=== PATIENT | female | born 1980 | race Caucasian/White ===

== ENCOUNTER → 2016-11-20 | Outpatient (REF) | payer OTHER ==
[~2016-11-20] MED LIST: /ADVA50050 INH; AMOX250S53; BACL10TA2 PO; CLOTCRE3 TOP; COUM1TAB17 PO; DICY10CA13 PO; DOCU10CA PO; DRIS50002 PO; HYDR-4274 PO; HYDROCHLOROQUIN; IBUP200C PO; IRON27TA PO; KLOR1TAB65 PO; LASI40TA PO; LORTAB; NEUR300C PO; NUVA RING; OMEP10CASR PO; OXYC-517 PO; OXYC15TA76 PO; PERCOCET PO; PLAQUENIL PO; ROBA750T4 PO; SOMA350T PO; TIZA4CAP3 PO; XANA0.5T PO; XOPEAER INH; vybrid PO
== END ==
LOC: M LAB REF 17:50
PROVIDERS: ATTEND Physician Assistant Medical
DX: N39.0 Urinary tract infection, site not specified (principal)

== ENCOUNTER → 2016-12-25 | Outpatient (CLI) | payer OTHER ==
--- NOTE | 2016-12-25 23:18 | ECWPNPC ---
PATIENT NAME: GISELL FRIEDMAN : 1980 GENDER: FEMALE VISIT DATE: 12/25/2016 DISCHARGE DATE: 12/25/16 1601 VISIT LOCKED DATE TIME: PHYSICIAN: CRISTY ATKINSON RESOURCE: CRISTY ATKINSON REASON FOR APPOINTMENT 1. MEDS HISTORY OF PRESENT ILLNESS HISTORY OF PRESENT ILLNESS: HERE FOR F/U AND MANAGEMENT OF CHRONIC PAIN WITH HX OF LUPUS,FIBROMYALGIA AND PTSD.CURRENTLY TAKING OXYCODONE 15NG ONE WHOLE TAB IN AM,1/2TAB AT 12NOON,ONE LATE AFTERNOONAND 1/2 TAB AT HS.STATES SHE IS HAVING WITHDRAWAL SYMPTOMS.CANT TAKE CLONIDINE IT CAUSES SEVERE FATIGUE.PATIENT HAS ALOT OF STRESS AND LIMITED SUPPORT.DISCUSSED REFFERAL TO BEHAVIORAL HEALTH.PATIENT IS RECEPTIVE.RATING PAIN VAS 6/10.DESCRIBES PAIN BURNING,ACHING AND STABBING. FALL RISK SCREENING: SCREENING :NO FALLS IN THE PAST YEAR CURRENT MEDICATIONS TAKING XANAX 1 MG TABLET 1 TABLET ORALLY TWICE A DAY NEEDED TAKING KLOR-CON 10 1 TABLET ORALLY ONCE DAILY TAKING FUROSEMIDE 20 MG TABLET 1 TABLET ORALLY ONCE A DAY TAKING OMEPRAZOLE 20 MG CAPSULE DELAYED RELEASE 1CAPSULES ORALLY TWICE A DAY TAKING DICYCLOMINE HCL 10 MG CAPSULE 1 CAPSULE ORALLY THREE TIMES A DAY TAKING COUMADIN 5 MG TABLET ORALLY DIRECTED TAKING CARAFATE 1 GM TABLET 1 TABLET ON AN EMPTY STOMACH ORALLY 3 TIMES A DAY TAKING IRON 65 MG TABLET 1 TABLET ORALLY BID TAKING COLACE 100 MG CAPSULE 1 CAPSULE NEEDED ORALLY ONCE A DAY TAKING TIZANIDINE HCL 4 MG TABLET 1 TAB ORALLY 1/2 TAB IN AM AND 2 TABS AT BEDTIME TAKING GABAPENTIN 300 MG CAPSULE 2 TABLETS ORALLY THREE TIMES A DAY AND 1 EXTRA TABLET AT BEDTIME IF NEEDED TAKING OXYCODONE HCL 15 MG TABLET 1 ORALLY Q8H PRN MDD3 NOT-TAKING ZOFRAN 4 MG TABLET 2 TABLETS ORALLY ONCE A DAY NOT-TAKING CLONIDINE HCL 0.1 MG TABLET 1 TABLET ORALLY Q8H PRN NOT-TAKING HYDROXYCHLOROQUINE SULFATE 200 MG TABLET 1 TABLET WITH FOOD OR MILK ORALLY TWICE A DAY NOT-TAKING HYDROXYZINE HCL 1 TABLET ORALLY AT BEDTIME MEDICATION LIST REVIEWED AND RECONCILED WITH THE PATIENT PAST MEDICAL HISTORY LUPUS FIBROMYALGIA PULMONARY EMBOLI AND BLOOD CLOT IN LEG KIARIMALFORMATION BACK PROBLEMS SEVERE DEPRESSION PTSD SEVERE ANXIETY ASTHMA STOMACH ULCER IBS ALLERGIES ATROPINE EYE DROPS: IRRITATION: ALLERGY CODEINE PHOSPHATE: NAUSEA/VOMITING: ALLERGY MORPHINE SULFATE: HIVES: ALLERGY SOCIAL HISTORY GENERAL: TOBACCO USE ARE YOU A:CURRENT SMOKER HOW MANY CIGARETTES A DAY DO YOU SMOKE?6-10 HOW SOON AFTER YOU WAKE UP DO YOU SMOKE YOUR FIRST CIGARETTE?6-30 MIN HOW OFTEN DO YOU SMOKE CIGARETTES?EVERY DAY PATIENT COUNSELED ON THE DANGERS OF TOBACCO USE AND URGED TO QUIT: COUNCELLED ON THE IMPORTANCE OF QUITTING ARE YOU INTERESTED IN QUITTING?NOT READY TO QUIT LEARNING BARRIERS / SPECIAL NEEDS ORIENTED TO PLAN OF CARE: PATIENT, PAIN MANAGEMENT PATIENT, ORIENTED TO PLAN OF CARE: PATIENT, PAIN MANAGEMENT PATIENT. NEW PATIENT PAIN DIARY TODAY'S VISITNOTES FROM 0-10, WHAT LEVEL IS YOUR PAIN TODAY?0 PAIN CLINIC PFS, CLERGY, PUBLIC HEALTH REFERRALS PFS REFERRAL NEEDED?NO CLERGY REFERRAL NEEDED?NO PUBLIC HEALTH REFERRAL NEEDED?NO WAS THE PROVIDER NOTIFIED OF ANY PERTINENT INFO?NO PFS REFERRAL NEEDED?NO CLERGY REFERRAL NEEDED?NO PUBLIC HEALTH REFERRAL NEEDED?NO WAS THE PROVIDER NOTIFIED OF ANY PERTINENT INFO?NO REVIEW OF SYSTEMS CONSTITUTIONAL: ANY CHANGE IN YOUR MEDICAL CONDITION? NO . CHILLS NO . FEVER NO . INFECTION: DO YOU HAVE NEW INFECTIONS? NO . DO YOU HAVE HISTORY OF MRSA? YES LEFT EAR, VAGINA, SIDE OF MOUTH . MUSCULOSKELETAL: ANY NEW PATTERNS OF PAIN OR NUMBNESS? NO . GASTROENTEROLOGY: ANY NEW CHANGE IN BOWEL CONTROL? NO . GENITOURINARY: ANY NEW CHANGE IN BLADDER CONTROL? NO . IS THERE A CHANCE YOU COULD BE ? NO . HEMATOLOGY/LYMPH: DO YOU TAKE ANY BLOOD THINNERS? (FOR EXAMPLE- COUMADIN, PLAVIX, AGGRENOX, PLATEL, PRADAXA, OR XARELTO) YES COUMADIN . WHEN WAS YOUR LAST DOSE? DATE: TIME: 12/24/16 2200 . NEUROLOGY: HAVE YOU FALLEN IN THE PAST 6 MONTHS? YES FALLS ALL THE TIME . ANY NEW EXTREMITY NUMBNESS OR WEAKNESS? NO . CARDIOLOGY: DO YOU HAVE A PACEMAKER OR DEFIBRILLATOR? NO . RESPIRATORY: HAVE YOU BEEN SICK IN THE PAST WEEK? YES . FEVER NO, DENIES . FLU LIKE SYMPTOMS? NO . COUGH PRODUCTIVE, CLEAR SPUTUM . INTEGUMENTARY: DO YOU HAVE ANY RASHES OR OPEN SORES? NO . ALLERGIC/IMMUNO: ARE YOU ALLERGIC TO SHELLFISH OR IV DYE? NO . ANY NEW ALLERGIES? NO . PSYCHIATRIC: DO YOU HAVE THOUGHTS OF HURTING YOURSELF OR SOMEONE ELSE? NO . ARE YOU ABUSED, NEGLECTED, OR IN AN UNSAFE ENVIRONMENT? NO . ENDOCRINOLOGY: ARE YOU DIABETIC? NO . OTHER: DO YOU NEED ANY PRESCRIPTIONS? YES OXYCODONE . IF YES, PLEASE LIST: ____ . ANY NEW PROBLEMS WITH YOUR MEDICATIONS? NO . WHEN DID YOU LAST EAT? ____ . WHEN DID YOU LAST DRINK? ____ . WHAT DID YOU LAST DRINK? ____ . NAME OF PERSON DRIVING YOU HOME? ____ . DO YOU HAVE ANY OTHER QUESTIONS OR CONCERNS NO . REVIEWED BY: PROVIDER: CRISTY MEANS . VITAL SIGNS WT 186 LBS, HT 65.5 IN, BMI 30.48 INDEX, BP 126/78 MM HG, HR 80 /MIN, RR 18 /MIN, TEMP 98.0 F, OXYGEN SAT % 99%, NA INITIALS SC 14:44, REVIEWED BY: AD. EXAMINATION GENERAL EXAMINATION: LUNGS:LUNG SOUNDS ARE CLEAR. HEART:HEART RATE REGULAR. MUSCULOSKELETAL:*, MUSCLE STRENGTH TESTING 5/5 BILATERAL.POSITIVE FOR MULTIPLE AREAS OF TENDER SPOTS INDICATIVE OF FIBROMYALGIA.. ASSESSMENTS CHRONIC GENERALIZED PAIN DISORDER - R52 (PRIMARY) CHRONIC PRESCRIPTION OPIATE USE - Z79.891 TREATMENT CHRONIC GENERALIZED PAIN DISORDER REFILL TIZANIDINE HCL TABLET, 4 MG, 1 TAB, ORALLY, 1/2 TAB IN AM AND 2 TABS AT BEDTIME, 30 DAY(S), 75, REFILLS 2 CONTINUE GABAPENTIN CAPSULE, 300 MG, 2 TABLETS, ORALLY, THREE TIMES A DAY AND 1 EXTRA TABLET AT BEDTIME IF NEEDED REFILL OXYCODONE HCL TABLET, 15 MG, 1, ORALLY, Q8H PRN MDD3, 30 DAY(S), 90, REFILLS 0 START CLONIDINE HCL PATCH WEEKLY, 0.1 MG/24HR, 1 PATCH TO SKIN, TRANSDERMAL, ONE PATCH WEEKLY, 30 DAY(S), 4, REFILLS 1 REFERRAL TO:[facility] REASON:ANXIETY/PTSD PREVENTIVE MEDICINE PAIN CLINIC TEACHING: MEDITATION PRINTED INFORMATION ON CLONIDINE PATCH GIVEN TO AND EXPLAINED TO PATIENT. . PROCEDURE CODES FA211 ESTABILISHED [facility]IENT [facility] CHARGE DISPOSITION & COMMUNICATION FOLLOW UP 6 WEEKS ELECTRONICALLY SIGNED BY MIGUELANGEL MONAHAN ON 12/25/2016 AT 04:20 PM EST DISCLAIMER : THIS IS A VISIT SUMMARY EXTRACTED FROM THE [employer] CHART. IT IS NOT A COPY OF THE [employer] PROGRESS NOTE. MTDD
== END ==
LOC: M PAIN 14:40
PROVIDERS: ATTEND Nurse Practitioner Family
DX: Z09 Encounter for follow-up examination after completed treatment for conditions other than malignant neoplasm (principal); G89.29 Other chronic pain; M32.9 Systemic lupus erythematosus, unspecified; M79.7 Fibromyalgia; J45.909 Unspecified asthma, uncomplicated; K58.9 Irritable bowel syndrome, unspecified; F17.200 Nicotine dependence, unspecified, uncomplicated; F32.9 Major depressive disorder, single episode, unspecified; F43.10 Post-traumatic stress disorder, unspecified; F41.9 Anxiety disorder, unspecified; Z88.5 Allergy status to narcotic agent; Z88.8 Allergy status to other drugs, medicaments and biological substances; Z79.01 Long term (current) use of anticoagulants; Z79.891 Long term (current) use of opiate analgesic; Z79.899 Other long term (current) drug therapy; Z86.14 Personal history of Methicillin resistant Staphylococcus aureus infection

== ENCOUNTER → 2016-12-25 | Outpatient (REF) | payer OTHER ==
[2016-12-25 16:13] LABS: MEAN CORPUSCULAR HEMOGLOBIN 29.1 pg (27.0-33.0); MEAN CORPUSCULAR HGB CONC 32.9 g/dl (32.0-36.5); MEAN CORPUSCULAR VOLUME 88.4 fl (80.0-96.0); WHITE BLOOD COUNT 5.9 K/mm3 (4.0-10.0)
[2016-12-25 16:15] LABS: INR 3.17
[2016-12-25 16:25] LABS: ALBUMIN 3.8 GM/DL (3.2-5.2); ALBUMIN/GLOBULIN RATIO 1.58 (1.00-1.93); ALKALINE PHOSPHATASE 86 U/L (45-117); ALT/SGPT 23 U/L (12-78); ANION GAP 10 MEQ/L (8-16); AST/SGOT 22 U/L (15-37); BILIRUBIN,TOTAL 0.4 MG/DL (0.2-1.0); BLOOD UREA NITROGEN 6 MG/DL (7-18); CARBON DIOXIDE LEVEL 24 MEQ/L (21-32); CHLORIDE LEVEL 110 MEQ/L (98-107); CHOLESTEROL LEVEL 185 MG/DL (<200); CREATININE FOR GFR 0.64 MG/DL (0.55-1.02); GLOMERULAR FILTRATION RATE > 60.0 (>60); GLUCOSE, FASTING 75 MG/DL (70-105); PERCENT SATURATION 45.7 % (13.2-37.4); POTASSIUM SERUM 3.6 MEQ/L (3.5-5.1); SODIUM LEVEL 144 MEQ/L (136-145); THYROXINE (T4) 6.8 UG/DL (4.5-12.0); TOTAL IRON BINDING CAPACITY 199 UG/DL (250-450); TOTAL PROTEIN 6.2 GM/DL (6.4-8.2); TRIGLYCERIDES LEVEL 130 MG/DL (<150)
== END ==
LOC: M LABDRAW1 15:45
PROVIDERS: ATTEND Family Medicine
DX: D64.9 Anemia, unspecified (principal)

== ENCOUNTER → 2017-04-30 | Outpatient (REF) | payer OTHER ==
[~2017-04-30] MED LIST changes: -HYDR-4274 PO; +HYDR50TA70 PO; -IBUP200C PO; +IBUP200C10 PO; -IRON27TA PO; +IRON27TA2 PO
== END ==
LOC: M LAB REF 16:31
PROVIDERS: ATTEND Physician Assistant
DX: N39.0 Urinary tract infection, site not specified (principal)

== ENCOUNTER → 2017-05-04 | Outpatient (CLI) | payer OTHER ==
--- NOTE | 2017-05-15 00:26 | ECWPNPC ---
PATIENT NAME: GISELL FRIEDMNA : 1980 GENDER: FEMALE VISIT DATE: 05/04/2017 DISCHARGE DATE: 05/04/17 1432 VISIT LOCKED DATE TIME: PHYSICIAN: CRISTY ATKINSON RESOURCE: CRISTY ATKINSON REASON FOR APPOINTMENT 1. BACK, CHRONIC PAIN HISTORY OF PRESENT ILLNESS HISTORY OF PRESENT ILLNESS: HERE FOR F/U AND MANAGEMENT OF CHRONIC PAIN WITH HX OF LUPUS,FIBROMYALGIA AND PTSD.CURRENTLY TAKING OXYCODONE 15NG ONE WHOLE TAB IN AM,1/2TAB AT 12NOON,ONE LATE AFTERNOONAND 1/2 TAB AT HS.STATES SHE IS HAVING WITHDRAWAL SYMPTOMS.CANT TAKE CLONIDINE IT CAUSES SEVERE FATIGUE.PATIENT HAS ALOT OF STRESS AND LIMITED SUPPORT.DISCUSSED REFFERAL TO BEHAVIORAL HEALTH.PATIENT IS RECEPTIVE.RATING PAIN VAS 6/10.DESCRIBES PAIN BURNING,ACHING AND STABBING. PAIN THE PATIENT DESCRIBES THE PAIN... THE PATIENT DESCRIBES THE PAIN... FALL RISK SCREENING: SCREENING :NO FALLS IN THE PAST YEAR CURRENT MEDICATIONS TAKING XANAX 1 MG TABLET 1 TABLET ORALLY TWICE A DAY NEEDED TAKING KLOR-CON 10 1 TABLET ORALLY ONCE DAILY TAKING FUROSEMIDE 20 MG TABLET 1 TABLET ORALLY ONCE A DAY TAKING OMEPRAZOLE 20 MG CAPSULE DELAYED RELEASE 1CAPSULES ORALLY TWICE A DAY TAKING DICYCLOMINE HCL 10 MG CAPSULE 1 CAPSULE ORALLY THREE TIMES A DAY TAKING COUMADIN 5 MG TABLET ORALLY DIRECTED TAKING CARAFATE 1 GM TABLET 1 TABLET ON AN EMPTY STOMACH ORALLY 3 TIMES A DAY TAKING IRON 65 MG TABLET 1 TABLET ORALLY BID TAKING COLACE 100 MG CAPSULE 1 CAPSULE NEEDED ORALLY ONCE A DAY TAKING GABAPENTIN 300 MG CAPSULE 2 TABLETS ORALLY THREE TIMES A DAY AND 1 EXTRA TABLET AT BEDTIME IF NEEDED TAKING CLONIDINE HCL 0.1 MG/24HR PATCH WEEKLY 1 PATCH TO SKIN TRANSDERMAL ONE PATCH WEEKLY TAKING TIZANIDINE HCL 4 MG TABLET 1 TAB ORALLY 1/2 TAB IN AM AND 2 TABS AT BEDTIME TAKING OXYCODONE HCL 15 MG TABLET 1 ORALLY Q8H PRN MDD3 NOT-TAKING ZOFRAN 4 MG TABLET 2 TABLETS ORALLY ONCE A DAY NOT-TAKING CLONIDINE HCL 0.1 MG TABLET 1 TABLET ORALLY Q8H PRN NOT-TAKING HYDROXYCHLOROQUINE SULFATE 200 MG TABLET 1 TABLET WITH FOOD OR MILK ORALLY TWICE A DAY NOT-TAKING HYDROXYZINE HCL 1 TABLET ORALLY AT BEDTIME MEDICATION LIST REVIEWED AND RECONCILED WITH THE PATIENT PAST MEDICAL HISTORY LUPUS FIBROMYALGIA PULMONARY EMBOLI AND BLOOD CLOT IN LEG KIARIMALFORMATION BACK PROBLEMS SEVERE DEPRESSION PTSD SEVERE ANXIETY ASTHMA STOMACH ULCER IBS ALLERGIES ATROPINE EYE DROPS: IRRITATION: ALLERGY CODEINE PHOSPHATE: NAUSEA/VOMITING: ALLERGY MORPHINE SULFATE: HIVES: ALLERGY SOCIAL HISTORY GENERAL: TOBACCO USE ARE YOU A:CURRENT SMOKER HOW MANY CIGARETTES A DAY DO YOU SMOKE?6-10 HOW SOON AFTER YOU WAKE UP DO YOU SMOKE YOUR FIRST CIGARETTE?6-30 MIN HOW OFTEN DO YOU SMOKE CIGARETTES?EVERY DAY PATIENT COUNSELED ON THE DANGERS OF TOBACCO USE AND URGED TO QUIT:05/04/2017 COUNCELLED ON THE IMPORTANCE OF QUITTING ARE YOU INTERESTED IN QUITTING?NOT READY TO QUIT COUNSELED THE PATIENT ON SMOKING EFFECTS, EDUCATION [id number]/07/2017 COUNCELLED SMOKING CESSATION INFORMATION GIVEN05/04/2017 LEARNING BARRIERS / SPECIAL NEEDS ORIENTED TO PLAN OF CARE: PATIENT, PAIN MANAGEMENT PATIENT, ORIENTED TO PLAN OF CARE: PATIENT, PAIN MANAGEMENT PATIENT. NEW PATIENT PAIN DIARY TODAY'S VISITNOTES FROM 0-10, WHAT LEVEL IS YOUR PAIN TODAY?0 PAIN CLINIC PFS, CLERGY, PUBLIC HEALTH REFERRALS PFS REFERRAL NEEDED?NO CLERGY REFERRAL NEEDED?NO PUBLIC HEALTH REFERRAL NEEDED?NO WAS THE PROVIDER NOTIFIED OF ANY PERTINENT INFO?NO PFS REFERRAL NEEDED?NO CLERGY REFERRAL NEEDED?NO PUBLIC HEALTH REFERRAL NEEDED?NO WAS THE PROVIDER NOTIFIED OF ANY PERTINENT INFO?NO REVIEW OF SYSTEMS REVIEWED BY: PROVIDER: CRISTY MEANS . CONSTITUTIONAL: ANY CHANGE IN YOUR MEDICAL CONDITION? NO . CHILLS NO . FEVER NO . INFECTION: DO YOU HAVE NEW INFECTIONS? NO . DO YOU HAVE HISTORY OF MRSA? NO . MUSCULOSKELETAL: ANY NEW PATTERNS OF PAIN OR NUMBNESS? NO . GASTROENTEROLOGY: ANY NEW CHANGE IN BOWEL CONTROL? NO . GENITOURINARY: ANY NEW CHANGE IN BLADDER CONTROL? NO . IS THERE A CHANCE YOU COULD BE ? NO . HEMATOLOGY/LYMPH: DO YOU TAKE ANY BLOOD THINNERS? (FOR EXAMPLE- COUMADIN, PLAVIX, AGGRENOX, PLATEL, PRADAXA, OR XARELTO) NO . WHEN WAS YOUR LAST DOSE? DATE: TIME: . NEUROLOGY: HAVE YOU FALLEN IN THE PAST 6 MONTHS? NO . ANY NEW EXTREMITY NUMBNESS OR WEAKNESS? NO . CARDIOLOGY: DO YOU HAVE A PACEMAKER OR DEFIBRILLATOR? NO . RESPIRATORY: HAVE YOU BEEN SICK IN THE PAST WEEK? NO . FEVER NO . FLU LIKE SYMPTOMS? NO . COUGH NO . INTEGUMENTARY: DO YOU HAVE ANY RASHES OR OPEN SORES? NO . ALLERGIC/IMMUNO: ARE YOU ALLERGIC TO SHELLFISH OR IV DYE? NO . ANY NEW ALLERGIES? NO . PSYCHIATRIC: DO YOU HAVE THOUGHTS OF HURTING YOURSELF OR SOMEONE ELSE? NO . ARE YOU ABUSED, NEGLECTED, OR IN AN UNSAFE ENVIRONMENT? NO . ENDOCRINOLOGY: ARE YOU DIABETIC? NO . OTHER: DO YOU NEED ANY PRESCRIPTIONS? NO . IF YES, PLEASE LIST: ____ . ANY NEW PROBLEMS WITH YOUR MEDICATIONS? NO . WHEN DID YOU LAST EAT? ____ . WHEN DID YOU LAST DRINK? ____ . WHAT DID YOU LAST DRINK? ____ . NAME OF PERSON DRIVING YOU HOME? ____ . DO YOU HAVE ANY OTHER QUESTIONS OR CONCERNS NO . VITAL SIGNS WT 180 LBS, HT 65.5 IN, BMI 29.49 INDEX, BP 118/76 MM HG, HR 70 /MIN, RR 18 /MIN, TEMP 98 F,6 F, OXYGEN SAT % 96, SAFE IN ENV? (Y/N) YES, REVIEWED BY: KG. EXAMINATION GENERAL EXAMINATION: LUNGS:LUNG SOUNDS ARE CLEAR. HEART:HEART RATE REGULAR. MUSCULOSKELETAL:*, MUSCLE STRENGTH TESTING 5/5 BILATERAL.POSITIVE FOR MULTIPLE AREAS OF TENDER SPOTS INDICATIVE OF FIBROMYALGIA.. ASSESSMENTS CHRONIC GENERALIZED PAIN DISORDER - R52 CHRONIC PRESCRIPTION OPIATE USE - Z79.891 TREATMENT CHRONIC GENERALIZED PAIN DISORDER REFILL TIZANIDINE HCL TABLET, 4 MG, 1 TAB, ORALLY, 1/2 TAB IN AM AND 2 TABS AT BEDTIME, 30 DAY(S), 75, REFILLS 0 REFILL OXYCODONE HCL TABLET, 15 MG, 1, ORALLY, Q8H PRN MDD3, 30 DAY(S), 90, REFILLS 0 NOTES: ISTOP REGISTRY REVIEWED AND DEMNOSTRATES COMPLLIANCE. BRINGS IN MEDICATIONS WHICH IS APPROPRIATE FOR WHAT WAS DISPENSED. RECENT URINE TOXICOLOGY REVIEWED. NO UNAUTHORIZED MEDICATIONS. NO ILLICIT SUBSTANCES AND PRESCRIBED MEDICATIONS WERE PRESENT. , RISKS AND BENEFITS OF NARCOTIC/OPIOD MEDICATIONS WERE REVIEWED WITH PATIENT - THIS INCLUDES BUT IS NOT LIMITED TO RISK OF DEPENDANCE/DEVELOPMENT OF ADDICTION, MOOD DISTURBANCE AND DEPRESSION, OSTEOPOROSIS, HORMONAL AND LABIDAL CHANGES, RESPIRATORY DEPRESSION AND . PATIENT IS ADVISED NOT TO DRIVE WHILE ON THESE MEDICATIONS. OTHERS NOTES: L4/5 INTRALAMINAL LESI. PROCEDURE CODES FA211 ESTABILISHED PATIENT [facility] CHARGE G8730 PAIN ASSESS POS TOOL F/U PLAN DOC G8427 DOC MEDS VERIFIED W/PT OR RE DISPOSITION & COMMUNICATION FOLLOW UP 1 MONTH CRISTY (REASON: L4/5 INTRALAMINAL LESI) ELECTRONICALLY SIGNED BY MIGUELANGEL MONAHAN ON 05/14/2017 AT 04:51 PM EDT DISCLAIMER : THIS IS A VISIT SUMMARY EXTRACTED FROM THE [employer] CHART. IT IS NOT A COPY OF THE [employer] PROGRESS NOTE. PABLITO
== END ==
LOC: M PAIN 13:20
PROVIDERS: ATTEND Nurse Practitioner Family
DX: G89.29 Other chronic pain (principal); M32.9 Systemic lupus erythematosus, unspecified; F43.10 Post-traumatic stress disorder, unspecified; M79.7 Fibromyalgia; F32.9 Major depressive disorder, single episode, unspecified; F41.9 Anxiety disorder, unspecified; J45.909 Unspecified asthma, uncomplicated; F17.210 Nicotine dependence, cigarettes, uncomplicated; Z88.5 Allergy status to narcotic agent; Z88.8 Allergy status to other drugs, medicaments and biological substances; Z79.01 Long term (current) use of anticoagulants; Z79.891 Long term (current) use of opiate analgesic; Z79.899 Other long term (current) drug therapy

== ENCOUNTER → 2017-05-30 | Outpatient (REF) | payer OTHER ==
[2017-05-30 16:05] LABS: MEAN CORPUSCULAR HEMOGLOBIN 31.1 pg (27.0-33.0); MEAN CORPUSCULAR HGB CONC 33.8 g/dl (32.0-36.5); MEAN CORPUSCULAR VOLUME 92.1 fl (80.0-96.0); RED CELL DISTRIBUTION WIDTH 15.2 % (11.5-14.5); WHITE BLOOD COUNT 6.3 K/mm3 (4.0-10.0)
[2017-05-30 16:28] LABS: ALBUMIN 3.7 GM/DL (3.2-5.2); ALBUMIN/GLOBULIN RATIO 1.28 (1.00-1.93); ALKALINE PHOSPHATASE 80 U/L (45-117); ALT/SGPT 24 U/L (12-78); ANION GAP 7 MEQ/L (8-16); AST/SGOT 20 U/L (15-37); BILIRUBIN,TOTAL 0.2 MG/DL (0.2-1.0); BLOOD UREA NITROGEN 5 MG/DL (7-18); CALCIUM LEVEL 8.5 MG/DL (8.5-10.1); CARBON DIOXIDE LEVEL 29 MEQ/L (21-32); CHLORIDE LEVEL 103 MEQ/L (98-107); CHOLESTEROL LEVEL 233 MG/DL (<200); GLOMERULAR FILTRATION RATE > 60.0 (>60); GLUCOSE, FASTING 75 MG/DL (70-105); MAGNESIUM LEVEL 1.8 MG/DL (1.8-2.4); POTASSIUM SERUM 3.7 MEQ/L (3.5-5.1); SODIUM LEVEL 139 MEQ/L (136-145); TOTAL PROTEIN 6.6 GM/DL (6.4-8.2); TRIGLYCERIDES LEVEL 143 MG/DL (<150)
== END ==
LOC: M LABDRAW1 15:50
PROVIDERS: ATTEND Family Medicine
DX: D64.9 Anemia, unspecified (principal); R53.83 Other fatigue

== ENCOUNTER → 2017-06-05 | Outpatient (REF) | payer OTHER ==
[2017-06-05 16:49] LABS: INR 2.99
== END ==
LOC: M LABDRAW1 15:39
PROVIDERS: ATTEND Family Medicine
DX: Z51.81 Encounter for therapeutic drug level monitoring (principal); Z79.01 Long term (current) use of anticoagulants; Z86.711 Personal history of pulmonary embolism

== ENCOUNTER → 2017-08-08 | Outpatient (CLI) | payer OTHER ==
--- NOTE | 2017-08-22 01:13 | ECWPNPC ---
PATIENT NAME: GISELL FRIEDMAN : 1980 GENDER: FEMALE VISIT DATE: 08/08/2017 DISCHARGE DATE: 08/08/17 1652 VISIT LOCKED DATE TIME: PHYSICIAN: CRISTY ATKINSON RESOURCE: CRISTY ATKINSON REASON FOR APPOINTMENT 1. BACK AND CHRONIC PAIN HISTORY OF PRESENT ILLNESS HISTORY OF PRESENT ILLNESS: HERE FOR F/U AND MANAGEMENT OF CHRONIC PAIN WITH HX OF LUPUS,FIBROMYALGIA AND PTSD.CURRENTLY TAKING OXYCODONE 15NG ONE WHOLE TAB IN AM,1/2TAB AT 12NOON,ONE LATE AFTERNOONAND 1/2 TAB AT HS.BROUGHT IN MEDICATION BUT IT IS EMPTY.STATES SHE IS TAKING OXYCODONE 15MG Q 6H AROUND CLOCK SO IS USING MORE THAN TTHREE TABLETS PER DAY.LAST VISIT WITH US WAS IN APRIL AND SEVERAL APPOINTMENTS HAVE BEEN CANCELLED OR NO SHOWS.I INFORMED HER THAT I HAVE RESERVATIONS ON USING NARCCTIC MEDICATIONS DUE TO INABILITY TO FOLLOW MONITORING WE NEED TO DO ON A REGULAR BASIS.IM ALSO CONCERNED WITH CONCURRENT USE OF ALPRAZOLAM.SHE WAS INFORMED OF POTENTIAL RISKS ASSOCIATED WITH COMBINATION TO INCLUDE SUDDEN .SHE IS ASKED TO GET LETTER FROM PRIMARY CARE TO SUPPORT HER USING BOTH MEDICATIONS.OUR GOAL IS TO USE OXYCODONE INFREQUENTLY AND NOT DAILY FOR SEVERE PAIN EPISODES.CANT TAKE CLONIDINE IT CAUSES SEVERE FATIGUE.PATIENT HAS ALOT OF STRESS AND LIMITED SUPPORT.RATING PAIN VAS 7/10.DESCRIBES PAIN BURNING,ACHING AND STABBING. PAIN THE PATIENT DESCRIBES THE PAIN... THE PATIENT DESCRIBES THE PAIN... THE PATIENT DESCRIBES THE PAIN... FALL RISK SCREENING: SCREENING :NO FALLS IN THE PAST YEAR CURRENT MEDICATIONS TAKING XANAX 1 MG TABLET 1 TABLET ORALLY TWICE A DAY NEEDED TAKING KLOR-CON 10 1 TABLET ORALLY ONCE DAILY TAKING FUROSEMIDE 20 MG TABLET 1 TABLET ORALLY ONCE A DAY TAKING OMEPRAZOLE 20 MG CAPSULE DELAYED RELEASE 1CAPSULES ORALLY TWICE A DAY TAKING DICYCLOMINE HCL 10 MG CAPSULE 1 CAPSULE ORALLY THREE TIMES A DAY TAKING COUMADIN 5 MG TABLET ORALLY DIRECTED TAKING CARAFATE 1 GM TABLET 1 TABLET ON AN EMPTY STOMACH ORALLY 3 TIMES A DAY TAKING IRON 65 MG TABLET 1 TABLET ORALLY TID TAKING COLACE 100 MG CAPSULE 1 CAPSULE NEEDED ORALLY ONCE A DAY TAKING TIZANIDINE HCL 4 MG TABLET 1 TAB ORALLY 1/2 TAB IN AM AND 2 TABS AT BEDTIME TAKING GABAPENTIN 300 MG CAPSULE 2 TABLETS ORALLY THREE TIMES A DAY AND 1 EXTRA TABLET AT BEDTIME IF NEEDED TAKING MECLIZINE HCL 12.5 MG TABLET 2 TABLETS NEEDED ORALLY ONCE A DAY DISCONTINUED CLONIDINE HCL 0.1 MG/24HR PATCH WEEKLY 1 PATCH TO SKIN TRANSDERMAL ONE PATCH WEEKLY UNKNOWN OXYCODONE HCL 15 MG TABLET 1 ORALLY Q8H PRN MDD3 UNKNOWN ZOFRAN 4 MG TABLET 2 TABLETS ORALLY ONCE A DAY UNKNOWN CLONIDINE HCL 0.1 MG TABLET 1 TABLET ORALLY Q8H PRN UNKNOWN HYDROXYCHLOROQUINE SULFATE 200 MG TABLET 1 TABLET WITH FOOD OR MILK ORALLY TWICE A DAY UNKNOWN HYDROXYZINE HCL 1 TABLET ORALLY AT BEDTIME MEDICATION LIST REVIEWED AND RECONCILED WITH THE PATIENT PAST MEDICAL HISTORY LUPUS FIBROMYALGIA PULMONARY EMBOLI AND BLOOD CLOT IN LEG KIARIMALFORMATION BACK PROBLEMS SEVERE DEPRESSION PTSD SEVERE ANXIETY ASTHMA STOMACH ULCER IBS ALLERGIES ATROPINE EYE DROPS: IRRITATION: ALLERGY CODEINE PHOSPHATE: NAUSEA/VOMITING: ALLERGY MORPHINE SULFATE: HIVES: ALLERGY SOCIAL HISTORY GENERAL: TOBACCO USE ARE YOU A:CURRENT SMOKER ARE YOU INTERESTED IN QUITTING?NOT READY TO QUIT COUNSELED THE PATIENT ON SMOKING EFFECTS, EDUCATION [id number]/11/2017 COUNCELLED HOW MANY CIGARETTES A DAY DO YOU SMOKE?6-10 HOW SOON AFTER YOU WAKE UP DO YOU SMOKE YOUR FIRST CIGARETTE?6-30 MIN HOW OFTEN DO YOU SMOKE CIGARETTES?EVERY DAY PATIENT COUNSELED ON THE DANGERS OF TOBACCO USE AND URGED TO QUIT:08/08/2017 COUNCELLED ON THE IMPORTANCE OF QUITTING SMOKING CESSATION INFORMATION GIVEN05/04/2017 LEARNING BARRIERS / SPECIAL NEEDS ORIENTED TO PLAN OF CARE: PATIENT, PAIN MANAGEMENT PATIENT, ORIENTED TO PLAN OF CARE: PATIENT, PAIN MANAGEMENT PATIENT. NEW PATIENT PAIN DIARY TODAY'S VISITNOTES FROM 0-10, WHAT LEVEL IS YOUR PAIN TODAY?0 PAIN CLINIC PFS, CLERGY, PUBLIC HEALTH REFERRALS PFS REFERRAL NEEDED?NO CLERGY REFERRAL NEEDED?NO PUBLIC HEALTH REFERRAL NEEDED?NO WAS THE PROVIDER NOTIFIED OF ANY PERTINENT INFO?NO HAS THE PATIENT BEEN EDUCATED REGARDING HIS/HER PLAN OF CARE?YES HAS THE PATIENT BEEN EDUCATED REGARDING PAIN, THE RISK FOR PAIN, THE IMPORTANCE OF EFFECTIVE PAIN MANAGEMENT, AND THE PAIN ASSESSMENT PROCESS?YES REVIEW OF SYSTEMS REVIEWED BY: PROVIDER: CRISTY MEANS . CONSTITUTIONAL: ANY CHANGE IN YOUR MEDICAL CONDITION? YES . CHILLS NO . FEVER NO . INFECTION: DO YOU HAVE NEW INFECTIONS? NO . DO YOU HAVE HISTORY OF MRSA? NO . MUSCULOSKELETAL: ANY NEW PATTERNS OF PAIN OR NUMBNESS? YES . GASTROENTEROLOGY: ANY NEW CHANGE IN BOWEL CONTROL? NO . GENITOURINARY: ANY NEW CHANGE IN BLADDER CONTROL? NO . IS THERE A CHANCE YOU COULD BE ? NO . HEMATOLOGY/LYMPH: DO YOU TAKE ANY BLOOD THINNERS? (FOR EXAMPLE- COUMADIN, PLAVIX, AGGRENOX, PLATEL, PRADAXA, OR XARELTO) NO . WHEN WAS YOUR LAST DOSE? DATE: TIME: 08/07/17@2199 <08/07/17@2199> . NEUROLOGY: HAVE YOU FALLEN IN THE PAST 6 MONTHS? YES . ANY NEW EXTREMITY NUMBNESS OR WEAKNESS? NO . CARDIOLOGY: DO YOU HAVE A PACEMAKER OR DEFIBRILLATOR? NO . RESPIRATORY: HAVE YOU BEEN SICK IN THE PAST WEEK? NO . FEVER NO . FLU LIKE SYMPTOMS? NO . COUGH NO . INTEGUMENTARY: DO YOU HAVE ANY RASHES OR OPEN SORES? NO . ALLERGIC/IMMUNO: ARE YOU ALLERGIC TO SHELLFISH OR IV DYE? NO . ANY NEW ALLERGIES? NO . PSYCHIATRIC: DO YOU HAVE THOUGHTS OF HURTING YOURSELF OR SOMEONE ELSE? NO . ARE YOU ABUSED, NEGLECTED, OR IN AN UNSAFE ENVIRONMENT? NO . ENDOCRINOLOGY: ARE YOU DIABETIC? NO . OTHER: DO YOU NEED ANY PRESCRIPTIONS? YES . IF YES, PLEASE LIST: ____OXYCODONE . ANY NEW PROBLEMS WITH YOUR MEDICATIONS? NO . WHEN DID YOU LAST EAT? ____ . WHEN DID YOU LAST DRINK? ____ . WHAT DID YOU LAST DRINK? ____ . NAME OF PERSON DRIVING YOU HOME? ____ . DO YOU HAVE ANY OTHER QUESTIONS OR CONCERNS YES . VITAL SIGNS WT 167 LBS, HT 65.5 IN, BMI 27.36 INDEX, BP 118/66 MM HG, HR 82 /MIN, RR 18 /MIN, TEMP 97.6 F, OXYGEN SAT % 99%, SAFE IN ENV? (Y/N) YES, NA INITIALS SC 15;55, REVIEWED BY: JASSI. EXAMINATION GENERAL EXAMINATION: LUNGS:LUNG SOUNDS ARE CLEAR. HEART:HEART RATE REGULAR. MUSCULOSKELETAL:*, MUSCLE STRENGTH TESTING 5/5 BILATERAL.POSITIVE FOR MULTIPLE AREAS OF TENDER SPOTS INDICATIVE OF FIBROMYALGIA.. ASSESSMENTS CHRONIC GENERALIZED PAIN DISORDER - R52 (PRIMARY) CHRONIC PRESCRIPTION OPIATE USE - Z79.891 TREATMENT CHRONIC GENERALIZED PAIN DISORDER REFILL OXYCODONE HCL TABLET, 15 MG, 1, ORALLY, 1 AM,1/2 12N,1 HS MDD2.5 TAB, 20 DAYS, 50, REFILLS 0 CONTINUE TIZANIDINE HCL TABLET, 4 MG, 1 TAB, ORALLY, 1/2 TAB IN AM AND 2 TABS AT BEDTIME, 30 DAY(S), 75, REFILLS 2 CONTINUE GABAPENTIN CAPSULE, 300 MG, 2 TABLETS, ORALLY, THREE TIMES A DAY AND 1 EXTRA TABLET AT BEDTIME IF NEEDED, 30 DAY(S), 180, REFILLS 2 NOTES: ISTOP REGISTRY [id number] AND DEMNOSTRATES COMPLLIANCE. BRINGS IN MEDICATIONS WHICH IS EMPTY. RECENT URINE TOXICOLOGY REVIEWED AND WAS INCONCLUSIVE. URINE TOX TODAY REVIEWED WITH PATIENT THE POTENTIAL RISK OF INCREASED SEDATION, RESPIRATORY SUPPRESSION AND WITH THE COMBINATION OF BENZODIAZAPINE AND OPIOD MEDICATIONS. PATIENT STATES HE UNDERSTANDS THIS RISK AND WISHES TO CONTINUE WITH THERAPY.INFORMED SHE NEEDS NOTE FROM PRIMARY CARE TO CONTINUEALPRAZOLAM WITH NARCOTIC PAIN MEDICATION OR I WONT CONTINUE TO PRESCRIBE OXYCODONE 15MG.MUST BE SEEN IN TWO WEEKS WITH MEDICATION OR I WILL NOT BE PRESCRIBING ANY MEDICATIONS,. PROCEDURE CODES FA211 ESTABILISHED PATIENT [facility] CHARGE DISPOSITION & COMMUNICATION FOLLOW UP 2 WEEKS-SQUEEZE IN ELECTRONICALLY SIGNED BY MIGUELANGEL MONAHAN ON 08/21/2017 AT 09:59 AM EDT DISCLAIMER : THIS IS A VISIT SUMMARY EXTRACTED FROM THE [employer] CHART. IT IS NOT A COPY OF THE [employer] PROGRESS NOTE. PABLITO
== END ==
LOC: M PAIN 15:00
PROVIDERS: ATTEND Nurse Practitioner Family
DX: G89.29 Other chronic pain (principal); R52 Pain, unspecified; M32.9 Systemic lupus erythematosus, unspecified; M79.7 Fibromyalgia; F43.10 Post-traumatic stress disorder, unspecified; F17.210 Nicotine dependence, cigarettes, uncomplicated; F32.9 Major depressive disorder, single episode, unspecified; F41.9 Anxiety disorder, unspecified; J45.909 Unspecified asthma, uncomplicated; Z88.5 Allergy status to narcotic agent; Z88.8 Allergy status to other drugs, medicaments and biological substances; Z79.01 Long term (current) use of anticoagulants

== ENCOUNTER → 2017-08-30 | Outpatient (CLI) | payer OTHER ==
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
== END ==
LOC: M PAIN 14:45
PROVIDERS: ATTEND Nurse Practitioner Family
DX: G89.29 Other chronic pain (principal); M32.9 Systemic lupus erythematosus, unspecified; M79.7 Fibromyalgia; F43.10 Post-traumatic stress disorder, unspecified; F41.9 Anxiety disorder, unspecified; J45.909 Unspecified asthma, uncomplicated; F17.210 Nicotine dependence, cigarettes, uncomplicated; Z88.5 Allergy status to narcotic agent; Z88.8 Allergy status to other drugs, medicaments and biological substances; Z79.01 Long term (current) use of anticoagulants; Z79.891 Long term (current) use of opiate analgesic; Z79.899 Other long term (current) drug therapy; Z91.81 History of falling

== ENCOUNTER 2017-09-22 00:17 | Emergency (ER) | payer OTHER ==
[~2017-09-22] VITALS: Ht 165.1 cm; Wt 77.3 kg
[2017-09-22 00:17] VITALS: BP 121/63
[2017-09-22] MEDS ORDERED: MECL-86 PO (00:26)
[2017-09-22 01:38] LABS: BASO % 0.2 % (0.0-1.0); EOS # 0.1 10^3/uL (0.0-0.50); EOS % 0.8 % (0.0-3.0); IMMATURE GRANULOCYTE % 0.1 % (0-0); LYMPH # 1.3 10^3/uL (1.5-4.5); LYMPH % 15.9 % (24.0-44.0); MEAN CORPUSCULAR HEMOGLOBIN 30.4 pg (27.0-33.0); MEAN CORPUSCULAR HGB CONC 33.6 g/dl (32.0-36.5); MEAN CORPUSCULAR VOLUME 90.5 fl (80.0-96.0); MONO # 0.2 10^3/uL (0.0-0.8); MONO % 2.2 % (0.0-5.0); NEUTROPHILS # 6.7 10^3/uL (1.8-7.7); NEUTROPHILS % 80.8 % (36.0-66.0); PLATELET COUNT, AUTOMATED 307 10^3/uL (150-450); RED CELL DISTRIBUTION WIDTH 15.4 % (11.5-14.5); WHITE BLOOD COUNT 8.3 10^3/uL (4.0-10.0)
[2017-09-22 01:51] LABS: INR 2.39
[2017-09-22 02:16] LABS: CONTROL LINE HCG INT CTR LINE PRESENT
[2017-09-22 02:24] LABS: ANION GAP 6 MEQ/L (8-16); BLOOD UREA NITROGEN 9 MG/DL (7-18); CALCIUM LEVEL 8.7 MG/DL (8.5-10.1); CARBON DIOXIDE LEVEL 29 MEQ/L (21-32); CHLORIDE LEVEL 107 MEQ/L (98-107); CREATININE FOR GFR 0.79 MG/DL (0.55-1.02); GLOMERULAR FILTRATION RATE > 60.0 (>60); GLUCOSE, FASTING 94 MG/DL (70-105); POTASSIUM SERUM 3.9 MEQ/L (3.5-5.1); SODIUM LEVEL 142 MEQ/L (136-145)
[2017-09-22] MEDS ORDERED: ISOVUE-370 76% 100ML VIAL (Q9967) As Ordered ONE (02:41)
[2017-09-22] MEDS ORDERED: KETO10TAB PO (04:08)
--- NOTE | 2017-09-22 04:10 | REPUSA ---
CLINICAL HISTORY: Dyspnea, exclude PE. TECHNIQUE: Multiple incremental axial, coronal and oblique images are obtained from the thoracic inle t to the upper abdomen. Intravenous contrast material was administered as per pulmonary embolism prot ocol. COMMENTS: Bilateral basilar atelectatic airspace disease in the lower lobes. There is excellent opacification of pulmonary arterial system without evidence for pulmonary embolism . Aorta is of normal caliber without evidence for dissection or aneurysm. There is no evidence of pleural or parenchymal mass. There are no pleural effusions. There is no evid ence of hilar or mediastinal lymphadenopathy. The heart and great vessels are within normal limits. Images of the upper abdomen demonstrate no evidence of adrenal mass. The bony structures are free of lytic or blastic lesions. Cholecystectomy. IMPRESSION: No evidence for pulmonary embolism. Thank you for your kind referral of this patient.
--- NOTE | 2017-09-24 08:15 | ECGEPIP ---
Stationary ECG Study [facility] - ED Test Date: 2017-09-22 Pat Name: GISELL FRIEDMAN Department: Room: - Gender: F Department Administrator: af : 1980 Requested By: DEEPTHI GARCIA Order Number: [id number] Reading MD: Everardo Cao Measurements Intervals [place] Rate: 74 P: 61 MA: 197 QRS: 73 QRSD: 90 T: 78 QT: 402 QTc: 448 Interpretive Statements SINUS RHYTHM POSSIBLE LEFT ATRIAL ENLARGEMENT SIMILAR TO 02/10/16 Electronically Signed On 09-24-2017 8:15:11 EST by Everardo Cao
== END 2017-09-22 04:14 | disposition home or self-care (01) ==
LOC: M ED 00:17
DX: R07.81 Pleurodynia (principal); G89.29 Other chronic pain; M54.9 Dorsalgia, unspecified; K21.9 Gastro-esophageal reflux disease without esophagitis; Z86.711 Personal history of pulmonary embolism; M32.9 Systemic lupus erythematosus, unspecified; F41.9 Anxiety disorder, unspecified; F32.9 Major depressive disorder, single episode, unspecified; F11.20 Opioid dependence, uncomplicated; F17.200 Nicotine dependence, unspecified, uncomplicated; Z79.01 Long term (current) use of anticoagulants; Z79.899 Other long term (current) drug therapy; Z88.5 Allergy status to narcotic agent; Z88.8 Allergy status to other drugs, medicaments and biological substances
CPT/HCPCS: 71275; 80048; 82550; 82553; 84703; 85025; 85610; 85730; 93000; 99284; Q9967

== ENCOUNTER 2018-04-27 02:59 | Emergency (ER) | payer MEDICAID, SELFPAY, OTHER ==
[2018-04-27] MEDS: CETACAINE SPRAY 5GM TOP ×2 (04:33)
== END 2018-04-27 05:00 | disposition home or self-care (01) ==
LOC: M ED 02:59
DX: K08.89 Other specified disorders of teeth and supporting structures (principal); K02.9 Dental caries, unspecified; M79.7 Fibromyalgia; M32.9 Systemic lupus erythematosus, unspecified; G93.5 Compression of brain; F17.200 Nicotine dependence, unspecified, uncomplicated; Z88.8 Allergy status to other drugs, medicaments and biological substances; Z88.5 Allergy status to narcotic agent; Z79.899 Other long term (current) drug therapy; Z79.01 Long term (current) use of anticoagulants
CPT/HCPCS: 64400

== ENCOUNTER 2018-05-11 21:31 | Emergency (ER) | payer MEDICAID, SELFPAY ==
[2018-05-11] MEDS ORDERED: ISOVUE-370 76% 100ML VIAL (Q9967) As Ordered ×2 (22:22)
[2018-05-11 22:40] LABS: INR 2.68; PROTHROMBIN TIME 29.1 SECONDS (12.1-14.4)
== END 2018-05-11 23:41 | disposition home or self-care (01) ==
LOC: M ED 21:31
DX: S20.212A Contusion of left front wall of thorax, initial encounter (principal); Z79.01 Long term (current) use of anticoagulants; X58.XXXA Exposure to other specified factors, initial encounter; Y92.831 Amusement park as the place of occurrence of the external cause; Y93.89 Activity, other specified; Y99.9 Unspecified external cause status; Z86.711 Personal history of pulmonary embolism; R42 Dizziness and giddiness; M79.7 Fibromyalgia; M51.37 Other intervertebral disc degeneration, lumbosacral region; Z72.0 Tobacco use; Z79.899 Other long term (current) drug therapy; Z88.5 Allergy status to narcotic agent; Z88.8 Allergy status to other drugs, medicaments and biological substances
CPT/HCPCS: Q9967

== ENCOUNTER 2018-07-11 20:03 | Emergency (ER) | payer MEDICAID, SELFPAY ==
[2018-07-11 20:16] LABS: BASO # 0.1 10^3/uL (0.0-0.2); BASO % 0.7 % (0.0-1.0); EOS # 0.1 10^3/uL (0.0-0.50); EOS % 1.5 % (0.0-3.0); HEMOGLOBIN 11.7 g/dl (12.0-15.5); IMMATURE GRANULOCYTE % 0.3 % (0-3.0); LYMPH # 2.9 10^3/uL (1.5-4.5); LYMPH % 39.3 % (24.0-44.0); MEAN CORPUSCULAR HEMOGLOBIN 30.5 pg (27.0-33.0); MEAN CORPUSCULAR HGB CONC 33.4 g/dl (32.0-36.5); MEAN CORPUSCULAR VOLUME 91.4 fl (80.0-96.0); MONO # 0.4 10^3/uL (0.0-0.8); NEUTROPHILS # 3.9 10^3/uL (1.8-7.7); NEUTROPHILS % 53.2 % (36.0-66.0); PLATELET COUNT, AUTOMATED 309 10^3/uL (150-450); RED BLOOD COUNT 3.83 10^6/uL (4.00-5.40); RED CELL DISTRIBUTION WIDTH 15.5 % (11.5-14.5); WHITE BLOOD COUNT 7.3 10^3/uL (4.0-10.0)
[2018-07-11 20:31] LABS: INR 2.53; PROTHROMBIN TIME 27.8 SECONDS (12.1-14.4)
[2018-07-11 20:43] LABS: ALBUMIN 3.8 GM/DL (3.2-5.2); ALBUMIN/GLOBULIN RATIO 1.36 (1.00-1.93); ALKALINE PHOSPHATASE 85 U/L (45-117); ALT/SGPT 22 U/L (12-78); ANION GAP 8 MEQ/L (8-16); AST/SGOT 16 U/L (7-37); BILIRUBIN,DIRECT < 0.1 MG/DL (0.0-0.2); BILIRUBIN,TOTAL 0.3 MG/DL (0.2-1.0); BLOOD UREA NITROGEN 9 MG/DL (7-18); C REACTIVE PROTEIN QUANTITATIV 0.72 MG/DL (0.00-0.30); CALCIUM LEVEL 8.5 MG/DL (8.5-10.1); CARBON DIOXIDE LEVEL 23 MEQ/L (21-32); CHLORIDE LEVEL 111 MEQ/L (98-107); CREATININE FOR GFR 0.75 MG/DL (0.55-1.30); GLOMERULAR FILTRATION RATE > 60.0 (>60); GLUCOSE, FASTING 81 MG/DL (70-100); POTASSIUM SERUM 3.4 MEQ/L (3.5-5.1); SODIUM LEVEL 142 MEQ/L (136-145); TOTAL PROTEIN 6.6 GM/DL (6.4-8.2)
[2018-07-11 20:56] LABS: ERYTHROCYTE SEDIMENTATION RATE 15 mm/hr (0-20)
[2018-07-11] MEDS: POTASSIUM CHLORIDE 10 MEQ SR TABLET PO (21:10)
== END 2018-07-11 21:19 | disposition home or self-care (01) ==
LOC: M ED 20:03
DX: E87.6 Hypokalemia (principal); M79.661 Pain in right lower leg; J45.909 Unspecified asthma, uncomplicated; K21.9 Gastro-esophageal reflux disease without esophagitis; K58.9 Irritable bowel syndrome, unspecified; M32.9 Systemic lupus erythematosus, unspecified; G93.5 Compression of brain; M79.7 Fibromyalgia; Z86.14 Personal history of Methicillin resistant Staphylococcus aureus infection; Z86.718 Personal history of other venous thrombosis and embolism; Z87.442 Personal history of urinary calculi; Z79.899 Other long term (current) drug therapy; Z79.01 Long term (current) use of anticoagulants; Z88.5 Allergy status to narcotic agent; Z88.8 Allergy status to other drugs, medicaments and biological substances; F17.210 Nicotine dependence, cigarettes, uncomplicated
CPT/HCPCS: 93971

== ENCOUNTER 2018-08-03 18:51 | Emergency (ER) | payer OTHER, MEDICAID ==
[2018-08-03 19:49] LABS: BASO % 0.6 % (0.0-1.0); EOS # 0.1 10^3/uL (0.0-0.50); EOS % 1.9 % (0.0-3.0); HEMATOCRIT 36.3 % (36.0-47.0); HEMOGLOBIN 11.9 g/dl (12.0-15.5); IMMATURE GRANULOCYTE % 0.2 % (0-3.0); LYMPH # 3.1 10^3/uL (1.5-4.5); LYMPH % 50.3 % (24.0-44.0); MEAN CORPUSCULAR HEMOGLOBIN 30.3 pg (27.0-33.0); MEAN CORPUSCULAR HGB CONC 32.8 g/dl (32.0-36.5); MEAN CORPUSCULAR VOLUME 92.4 fl (80.0-96.0); MONO # 0.4 10^3/uL (0.0-0.8); MONO % 5.9 % (0.0-5.0); NEUTROPHILS # 2.6 10^3/uL (1.8-7.7); NEUTROPHILS % 41.1 % (36.0-66.0); PLATELET COUNT, AUTOMATED 277 10^3/uL (150-450); RED BLOOD COUNT 3.93 10^6/uL (4.00-5.40); RED CELL DISTRIBUTION WIDTH 15.1 % (11.5-14.5); WHITE BLOOD COUNT 6.2 10^3/uL (4.0-10.0)
[2018-08-03 19:59] LABS: INR 2.92; PROTHROMBIN TIME 31.1 SECONDS (12.1-14.4)
[2018-08-03 20:00] LABS: PARTIAL THROMBOPLASTIN TIME 43.6 SECONDS (25.4-37.6)
[2018-08-03 20:21] LABS: ANION GAP 6 MEQ/L (8-16); BLOOD UREA NITROGEN 10 MG/DL (7-18); CALCIUM LEVEL 8.2 MG/DL (8.5-10.1); CARBON DIOXIDE LEVEL 29 MEQ/L (21-32); CHLORIDE LEVEL 108 MEQ/L (98-107); CK-MB VALUE MASS < 1.0 NG/ML (<3.6); CONTROL LINE HCG INT CTR LINE PRESENT; CPK CREATINE PHOSPHOKINASE 110 U/L (26-192); CREATININE FOR GFR 0.81 MG/DL (0.55-1.30); GLOMERULAR FILTRATION RATE > 60.0 (>60); GLUCOSE, FASTING 86 MG/DL (70-100); HCG, SERUM QUALITATIVE NEGATIVE (NEGATIVE); MB/CK RELATIVE INDEX 0.91 (< OR =4); POTASSIUM SERUM 3.7 MEQ/L (3.5-5.1); SODIUM LEVEL 143 MEQ/L (136-145); TROPONIN I < 0.02 NG/ML (< 0.10)
[2018-08-03] MEDS: KETOROLAC 30 MG/ML VIAL (J1885) IV (21:25)
== END 2018-08-03 21:35 | disposition home or self-care (01) ==
LOC: M ED 18:51
DX: M79.669 Pain in unspecified lower leg (principal); L30.9 Dermatitis, unspecified; K58.9 Irritable bowel syndrome, unspecified; M79.7 Fibromyalgia; G89.29 Other chronic pain; M32.9 Systemic lupus erythematosus, unspecified; K21.9 Gastro-esophageal reflux disease without esophagitis; F43.10 Post-traumatic stress disorder, unspecified; Z79.01 Long term (current) use of anticoagulants; Z88.8 Allergy status to other drugs, medicaments and biological substances; Z88.5 Allergy status to narcotic agent; Z79.2 Long term (current) use of antibiotics; Z79.899 Other long term (current) drug therapy
CPT/HCPCS: J1885

== ENCOUNTER 2018-09-01 17:20 | Emergency (ER) | payer OTHER ==
[2018-09-01] MEDS: LIDOCAINE VISCOUS 2% SOLN 15ML UDC SSP (17:56)
[2018-09-01] MEDS: AUGMENTIN 875 MG TAB PO (17:56)
[2018-09-01] MEDS: NORCO, ANEXSIA 5/325MG TABLET (HYDROcodone/ACETAMINOPHEN) PO (17:57)
== END 2018-09-01 18:04 | disposition home or self-care (01) ==
LOC: M ED 17:20
DX: K04.7 Periapical abscess without sinus (principal); K02.9 Dental caries, unspecified; R68.84 Jaw pain; F43.10 Post-traumatic stress disorder, unspecified; F32.9 Major depressive disorder, single episode, unspecified; F41.9 Anxiety disorder, unspecified; F17.210 Nicotine dependence, cigarettes, uncomplicated; Z88.8 Allergy status to other drugs, medicaments and biological substances; Z88.5 Allergy status to narcotic agent; Z79.01 Long term (current) use of anticoagulants; Z86.718 Personal history of other venous thrombosis and embolism
CPT/HCPCS: 99282

== ENCOUNTER 2018-09-13 17:27 | Emergency (ER) | payer OTHER ==
[2018-09-13] MEDS: NS 1,000 ML IV (18:26)
[2018-09-13 18:35] LABS: BASO % 0.6 % (0.0-1.0); EOS # 0.1 10^3/uL (0.0-0.50); EOS % 1.2 % (0.0-3.0); HEMATOCRIT 33.9 % (36.0-47.0); IMMATURE GRANULOCYTE % 0.3 % (0-3.0); LYMPH # 2.6 10^3/uL (1.5-4.5); LYMPH % 38.2 % (24.0-44.0); MEAN CORPUSCULAR HEMOGLOBIN 29.9 pg (27.0-33.0); MEAN CORPUSCULAR HGB CONC 32.4 g/dl (32.0-36.5); MEAN CORPUSCULAR VOLUME 92.1 fl (80.0-96.0); MONO # 0.3 10^3/uL (0.0-0.8); MONO % 4.5 % (0.0-5.0); NEUTROPHILS # 3.8 10^3/uL (1.8-7.7); NEUTROPHILS % 55.2 % (36.0-66.0); PLATELET COUNT, AUTOMATED 298 10^3/uL (150-450); RED BLOOD COUNT 3.68 10^6/uL (4.00-5.40); RED CELL DISTRIBUTION WIDTH 14.9 % (11.5-14.5); WHITE BLOOD COUNT 6.8 10^3/uL (4.0-10.0)
[2018-09-13 18:46] LABS: INR 3.38; PROTHROMBIN TIME 34.9 SECONDS (12.1-14.4)
== END 2018-09-13 19:19 | disposition home or self-care (01) ==
LOC: M ED 17:27
DX: K91.840 Postprocedural hemorrhage of a digestive system organ or structure following a digestive system procedure (principal); J45.909 Unspecified asthma, uncomplicated; G93.5 Compression of brain; M79.7 Fibromyalgia; K21.9 Gastro-esophageal reflux disease without esophagitis; K58.9 Irritable bowel syndrome, unspecified; F33.9 Major depressive disorder, recurrent, unspecified; F41.9 Anxiety disorder, unspecified; F43.10 Post-traumatic stress disorder, unspecified; Z79.899 Other long term (current) drug therapy; Z79.01 Long term (current) use of anticoagulants; Z88.5 Allergy status to narcotic agent
CPT/HCPCS: 85610

== ENCOUNTER 2018-09-23 20:47 | Emergency (ER) | payer OTHER ==
[2018-09-23] MEDS: CETACAINE SPRAY 5GM TOP (22:45)
[2018-09-23] MEDS: BUPIVACAINE/EPIN 0.5% 30 ML VIAL XX (22:45)
[2018-09-23] MEDS: CLINDAMYCIN 150 MG CAP PO (23:28)
== END 2018-09-23 23:30 | disposition home or self-care (01) ==
LOC: M ED 20:47
DX: K08.89 Other specified disorders of teeth and supporting structures (principal); Z79.899 Other long term (current) drug therapy; Z79.01 Long term (current) use of anticoagulants; Z88.5 Allergy status to narcotic agent; Z88.8 Allergy status to other drugs, medicaments and biological substances; F17.210 Nicotine dependence, cigarettes, uncomplicated
CPT/HCPCS: 99284

== ENCOUNTER 2018-09-24 16:24 | Emergency (ER) | payer OTHER ==
[2018-09-24] MEDS: BUPIVACAINE/EPIN 0.5% 30 ML VIAL IM (16:44)
[2018-09-24] MEDS: CETACAINE SPRAY 5GM TOP (17:00)
== END 2018-09-24 17:36 | disposition home or self-care (01) ==
LOC: M ED 16:24
DX: K02.9 Dental caries, unspecified (principal); K08.89 Other specified disorders of teeth and supporting structures; M79.7 Fibromyalgia; R42 Dizziness and giddiness; F17.210 Nicotine dependence, cigarettes, uncomplicated; Z79.899 Other long term (current) drug therapy; Z79.01 Long term (current) use of anticoagulants; Z79.2 Long term (current) use of antibiotics; Z88.5 Allergy status to narcotic agent; Z88.8 Allergy status to other drugs, medicaments and biological substances
CPT/HCPCS: 64400

== ENCOUNTER → 2018-10-16 | Outpatient (CLI) | payer OTHER ==
[~2018-10-16] MED LIST changes: +AMOX500C; +AUGM875T28 PO; +CLEO150C PO; +CLEO300C2 PO; +CLOTR1CR TOP; +DICY20TA11; -DRIS50002 PO; +DRIS50003 PO; +FURO40TA2 PO; +GABA-843 PO; +HYDR-3713; -IBUP200C10 PO; +IBUP200C25 PO; +IBUP80TA PO; +K-TA10TA2 PO; +KETO10TAB PO; +LIDO1SOL7 SSP; +LORA-243; +MECL-86 PO; +MECL12.575; +NORCOTAB PO; +OMEP20CA3; +SUCR1TAB56; +TIZA4CAP PO; -TIZA4CAP3 PO; +TYLE500T78 PO; +VITA50005; +WARF-23 PO; +XANA0.25 PO
[2018-10-16 18:07] LABS: INR 3.03
== END ==
LOC: M LAB 17:00
PROVIDERS: ATTEND Family Medicine
DX: Z51.81 Encounter for therapeutic drug level monitoring (principal); Z79.01 Long term (current) use of anticoagulants

== ENCOUNTER → 2018-11-20 | Outpatient (REF) | payer OTHER ==
[~2018-11-20] MED LIST changes: -LASI40TA PO; +LASI40TA9 PO; +PRED20TA PO
[2018-11-20 11:59] LABS: HEMATOCRIT 36.9 % (36.0-47.0); MEAN CORPUSCULAR HEMOGLOBIN 29.7 pg (27.0-33.0); MEAN CORPUSCULAR HGB CONC 32.5 g/dl (32.0-36.5); MEAN CORPUSCULAR VOLUME 91.3 fl (80.0-96.0); PLATELET COUNT, AUTOMATED 250 10^3/uL (150-450); RED BLOOD COUNT 4.04 10^6/uL (4.00-5.40)
[2018-11-20 12:14] LABS: INR 4.43; PROTHROMBIN TIME 43.3 SECONDS (12.1-14.4)
[2018-11-20 12:23] LABS: ALT/SGPT 10 U/L (12-78); BILIRUBIN,TOTAL 0.2 MG/DL (0.2-1.0); BLOOD UREA NITROGEN 11 MG/DL (7-18); CALCIUM LEVEL 7.9 MG/DL (8.5-10.1); CARBON DIOXIDE LEVEL 22 MEQ/L (21-32); CHLORIDE LEVEL 112 MEQ/L (98-107); CHOLESTEROL LEVEL 185 MG/DL (<200); CHOLESTEROL RISK RATIO 4.021 (<5); CREATININE FOR GFR 0.73 MG/DL (0.55-1.30); GLOMERULAR FILTRATION RATE > 60.0 (>60); GLUCOSE, FASTING 87 MG/DL (70-100); HDL CHOLESTEROL 46 MG/DL (>40); LDL CHOLESTEROL 119 MG/DL (<100); NON-HDL-C 139 MG/DL; POTASSIUM SERUM 4.1 MEQ/L (3.5-5.1); SODIUM LEVEL 141 MEQ/L (136-145); TOTAL PROTEIN 6.2 GM/DL (6.4-8.2); TRIGLYCERIDES LEVEL 101 MG/DL (<150)
[2018-11-20 12:24] LABS: ALBUMIN 3.4 GM/DL (3.2-5.2); C REACTIVE PROTEIN QUANTITATIV 0.56 MG/DL (0.00-0.30); RHEUMATOID FACTOR QUANT < 10.0 IU/ML (<15.0)
[2018-11-20 12:26] LABS: ERYTHROCYTE SEDIMENTATION RATE 18 mm/hr (0-20)
[2018-11-20 15:12] LABS: TOTAL 25(OH) VITAMIN D 35.1 NG/ML (30.0-100.0)
[2018-11-21 14:44] LABS: ANTINUCLEAR ANTIBODIES DIRECT Negative (Negative)
== END ==
LOC: M LABDRAW1 09:55
PROVIDERS: ATTEND Family Medicine
DX: D64.9 Anemia, unspecified (principal); R53.83 Other fatigue; D68.62 Lupus anticoagulant syndrome; M19.90 Unspecified osteoarthritis, unspecified site

== ENCOUNTER 2018-12-04 17:46 | Emergency (ER) | payer OTHER ==
[~2018-12-04] VITALS: Ht 165.1 cm; Wt 72.7 kg
[~2018-12-04 17:46] MED LIST changes: -PRED20TA PO
[2018-12-04] MEDS ORDERED: NS 500 ML IV ONE (18:15)
[2018-12-04 18:24] LABS: BASO % 0.5 % (0.0-1.0); EOS # 0.1 10^3/uL (0.0-0.50); HEMATOCRIT 35.3 % (36.0-47.0); HEMOGLOBIN 11.8 g/dl (12.0-15.5); LYMPH # 2.4 10^3/uL (1.5-4.5); MEAN CORPUSCULAR HEMOGLOBIN 30.4 pg (27.0-33.0); MEAN CORPUSCULAR HGB CONC 33.4 g/dl (32.0-36.5); MONO # 0.3 10^3/uL (0.0-0.8); MONO % 4.9 % (0.0-5.0); NEUTROPHILS # 3.6 10^3/uL (1.8-7.7); NEUTROPHILS % 55.3 % (36.0-66.0); PLATELET COUNT, AUTOMATED 289 10^3/uL (150-450); RED BLOOD COUNT 3.88 10^6/uL (4.00-5.40); WHITE BLOOD COUNT 6.6 10^3/uL (4.0-10.0)
[2018-12-04] MEDS ORDERED: ASPIRIN 81 MG CHEW TABLET PO ONE (18:30)
[2018-12-04 18:35] LABS: INR 1.54; PROTHROMBIN TIME 18.7 SECONDS (12.1-14.4)
[2018-12-04 18:36] LABS: PARTIAL THROMBOPLASTIN TIME 32.6 SECONDS (25.4-37.6)
--- NOTE | 2018-12-04 18:47 | REP ---
Chest x-ray: Two views. History: Chest pain . Comparison study: The September 07, 2016 . Findings: The lungs are well inflated and free of infiltrate. The pleural angles are sharp. The heart size is normal. Pulmonary vasculature is not increased. No significant bony abnormality is seen. EKG monitoring electrodes are seen. Impression: Negative chest x-ray. Electronically Signed by Myke Quiros MD 12/04/2018 06:39 P
[2018-12-04 18:57] LABS: ALBUMIN 3.7 GM/DL (3.2-5.2); ALT/SGPT 19 U/L (12-78); BILIRUBIN,DIRECT < 0.1 MG/DL (0.0-0.2); BILIRUBIN,TOTAL 0.1 MG/DL (0.2-1.0); BLOOD UREA NITROGEN 11 MG/DL (7-18); CALCIUM LEVEL 8.2 MG/DL (8.5-10.1); CARBON DIOXIDE LEVEL 28 MEQ/L (21-32); CHLORIDE LEVEL 105 MEQ/L (98-107); CK-MB VALUE MASS < 1.0 NG/ML (<3.6); CPK CREATINE PHOSPHOKINASE 84 U/L (26-192); CREATININE FOR GFR 0.67 MG/DL (0.55-1.30); GLOMERULAR FILTRATION RATE > 60.0 (>60); GLUCOSE, FASTING 96 MG/DL (70-100); LIPASE 167 U/L (73-393); MB/CK RELATIVE INDEX 1.19 (< OR =4); POTASSIUM SERUM 3.7 MEQ/L (3.5-5.1); SODIUM LEVEL 140 MEQ/L (136-145); TOTAL PROTEIN 6.4 GM/DL (6.4-8.2); TROPONIN I < 0.02 NG/ML (< 0.10)
[2018-12-04 18:58] LABS: FREE T4 1.01 NG/DL (0.76-1.46)
[2018-12-04] MEDS ORDERED: ISOVUE-370 76% 100ML VIAL (Q9967) As Ordered ONE (19:06)
--- NOTE | 2018-12-04 20:14 | REPVR ---
EXAM: CT Angiography Chest With Contrast EXAM DATE/TIME: 12/04/2018 7:17 PM CLINICAL HISTORY: 38 years old, female; Pain; Chest pain; Additional info: Chest pain, SOB TECHNIQUE: Axial computed tomographic angiography images of the chest with intravenous contrast using CT angiography protocol. All CT scans at this facility use at least one of these dose optimization techniques: automated exposure control; mA and/or kV adjustment per patient size (includes targeted exams where dose is matched to clinical indication); or iterative reconstruction. Coronal and sagittal reformatted images were created and reviewed. MIP reconstructed images were created and reviewed. CONTRAST: 75 ml of ISOVUE 370 administered intravenously. COMPARISON: CT ANGIO CHEST 09/22/2017 2:54 AM FINDINGS: Pulmonary arteries: The main pulmonary artery measures 28 mm. No pulmonary embolism is identified. Aorta: The ascending thoracic aorta measures 27 mm. Lungs: Minimal dependent atelectasis. Pleural space: Normal. No pneumothorax. No pleural effusion. Heart: Normal. No cardiomegaly. No pericardial effusion. Gallbladder and bile ducts: Status post cholecystectomy. Lymph nodes: Unremarkable. No enlarged lymph nodes. Bones/joints: Unremarkable. No acute fracture. Soft tissues: Unremarkable. IMPRESSION: Negative CTA chest with little change from 09/22/2017. No interval pulmonary embolism is identified. Electronically signed by: James Thomas On 12/04/2018 20:14:17 PM
[2018-12-04] MEDS ORDERED: NS 1,000 ML IV ONE (20:30)
--- NOTE | 2018-12-04 21:22 | ECGEPIP ---
Stationary ECG Study [facility] - ED Test Date: 2018-12-04 Pat Name: GISELL FRIEDMAN Department: Room: - Gender: F [employer]: : 1980 Requested By: Jahaira Fuller Order Number: [id number] Reading MD: Everardo Cao Measurements Intervals [place] Rate: 63 P: 56 OR: 188 QRS: 66 QRSD: 103 T: 80 QT: 418 QTc: 428 Interpretive Statements SINUS RHYTHM WITH SINUS ARRHYTHMIA BENIGN EARLY REPOLARIZATION SIMILAR TO 08/03/18 Electronically Signed On 12-04-2018 21:22:30 EST by Everardo Cao
[2018-12-05 00:14] LABS: CK-MB VALUE MASS < 1.0 NG/ML (<3.6); CPK CREATINE PHOSPHOKINASE 67 U/L (26-192); MB/CK RELATIVE INDEX 1.49 (< OR =4); TROPONIN I < 0.02 NG/ML (< 0.10)
[2018-12-05] MEDS ORDERED: predniSONE 20 MG TAB PO ONE (01:00)
[2018-12-05 01:15] VITALS: BP 106/63
[2018-12-05] MEDS ORDERED: PRED20TA PO (01:38)
--- NOTE | 2018-12-05 05:49 | ECGEPIP ---
Stationary ECG Study [facility] - ED Test Date: 2018-12-04 Pat Name: GISELL FRIEDMAN Department: Room: - Gender: F [employer]visor [employer]: [place] : 1980 Requested By: EDMOND Davis Order Number: [id number] Reading MD: Everardo Cao Measurements Intervals [place] Rate: 67 P: 47 MI: 205 QRS: 57 QRSD: 89 T: 71 QT: 409 QTc: 433 Interpretive Statements SINUS RHYTHM SIMILAR TO PRIOR ON SAME DATE Electronically Signed On 12-05-2018 5:48:51 EST by Everardo Cao
== END 2018-12-05 01:52 | disposition home or self-care (01) ==
LOC: M ED 17:46
DX: R07.89 Other chest pain (principal); J45.909 Unspecified asthma, uncomplicated; M32.9 Systemic lupus erythematosus, unspecified; M19.90 Unspecified osteoarthritis, unspecified site; M79.7 Fibromyalgia; G93.5 Compression of brain; Z82.49 Family history of ischemic heart disease and other diseases of the circulatory system; Z86.711 Personal history of pulmonary embolism; Z86.718 Personal history of other venous thrombosis and embolism; Z79.899 Other long term (current) drug therapy; Z79.01 Long term (current) use of anticoagulants; Z88.5 Allergy status to narcotic agent; Z88.8 Allergy status to other drugs, medicaments and biological substances; F17.210 Nicotine dependence, cigarettes, uncomplicated
CPT/HCPCS: 71046; 71275; 80048; 80076; 82550; 82553; 83690; 84439; 84443; 85025; 85610; 85730; 93005; 93041; 94760; 96360; 96361; 99285; Q9967

== ENCOUNTER → 2018-12-10 | Outpatient (REF) | payer OTHER ==
[~2018-12-10] MED LIST changes: +PRED20TA PO
[2018-12-10 19:00] LABS: INR 2.41; PROTHROMBIN TIME 26.7 SECONDS (12.1-14.4)
== END ==
LOC: M LABDRAW1 16:51
PROVIDERS: ATTEND Family Medicine
DX: Z86.718 Personal history of other venous thrombosis and embolism (principal); Z79.01 Long term (current) use of anticoagulants

== ENCOUNTER 2018-12-31 23:36 | Emergency (ER) | payer OTHER ==
[~2018-12-31] VITALS: Ht 165.1 cm; Wt 73.2 kg
[2019-01-01] MEDS ORDERED: TRANEXAMIC ACID 100 MG/ML 10ML VIAL ONE (01:30)
[2019-01-01 02:56] LABS: BASO # 0.1 10^3/uL (0.0-0.2); BASO % 0.7 % (0.0-1.0); EOS # 0.2 10^3/uL (0.0-0.50); EOS % 2.4 % (0.0-3.0); HEMATOCRIT 34.9 % (36.0-47.0); HEMOGLOBIN 11.5 g/dl (12.0-15.5); LYMPH # 3.3 10^3/uL (1.5-4.5); LYMPH % 38.6 % (24.0-44.0); MEAN CORPUSCULAR HEMOGLOBIN 29.8 pg (27.0-33.0); MEAN CORPUSCULAR VOLUME 90.4 fl (80.0-96.0); MONO # 0.6 10^3/uL (0.0-0.8); MONO % 6.6 % (0.0-5.0); NEUTROPHILS # 4.3 10^3/uL (1.8-7.7); NEUTROPHILS % 51.5 % (36.0-66.0); PLATELET COUNT, AUTOMATED 325 10^3/uL (150-450); RED BLOOD COUNT 3.86 10^6/uL (4.00-5.40); WHITE BLOOD COUNT 8.4 10^3/uL (4.0-10.0)
[2019-01-01 03:17] LABS: INR 3.75
[2019-01-01 04:21] VITALS: BP 109/60
== END 2019-01-01 04:23 | disposition home or self-care (01) ==
LOC: M ED 23:36
DX: K91.840 Postprocedural hemorrhage of a digestive system organ or structure following a digestive system procedure (principal); Z79.01 Long term (current) use of anticoagulants; Z79.899 Other long term (current) drug therapy; Z88.5 Allergy status to narcotic agent; Z88.8 Allergy status to other drugs, medicaments and biological substances

== ENCOUNTER → 2019-01-08 | Outpatient (REF) | payer OTHER ==
[2019-01-08 13:30] LABS: INR 3.02
== END ==
LOC: M LABDRAW1 10:55
PROVIDERS: ATTEND Family Medicine
DX: I82.409 Acute embolism and thrombosis of unspecified deep veins of unspecified lower extremity (principal)

== ENCOUNTER 2019-01-30 21:42 | Emergency (ER) | payer OTHER ==
[~2019-01-30] VITALS: Ht 165.1 cm; Wt 77.3 kg
[~2019-01-30 21:42] MED LIST changes: -DICY20TA; -LIDVISCBTL TOP
[2019-01-30] MEDS ORDERED: DICY20TA (21:50)
[2019-01-30] MEDS ORDERED: methylPREDNISolone INJ 125 MG/2 ML VIAL (J2930) IM ONE (23:45)
[2019-01-30] MEDS ORDERED: GABAPENTIN 300 MG CAP PO ONE (23:45)
[2019-01-31 00:02] LABS: BASO # 0.1 10^3/uL (0.0-0.2); BASO % 0.6 % (0.0-1.0); EOS # 0.2 10^3/uL (0.0-0.50); EOS % 2.3 % (0.0-3.0); HEMATOCRIT 37.3 % (36.0-47.0); HEMOGLOBIN 12.1 g/dl (12.0-15.5); LYMPH # 3.2 10^3/uL (1.5-4.5); MEAN CORPUSCULAR HEMOGLOBIN 29.5 pg (27.0-33.0); MEAN CORPUSCULAR HGB CONC 32.4 g/dl (32.0-36.5); MONO # 0.5 10^3/uL (0.0-0.8); MONO % 6.7 % (0.0-5.0); NEUTROPHILS % 50.1 % (36.0-66.0); PLATELET COUNT, AUTOMATED 313 10^3/uL (150-450)
[2019-01-31 00:21] LABS: HEMOGLOBIN A1c 5.1 %; INR 2.94; PARTIAL THROMBOPLASTIN TIME 47.8 SECONDS (25.4-37.6); PROTHROMBIN TIME 31.3 SECONDS (12.1-14.4)
[2019-01-31 00:39] LABS: ALBUMIN 4.1 GM/DL (3.2-5.2); ALT/SGPT 19 U/L (12-78); BILIRUBIN,TOTAL 0.2 MG/DL (0.2-1.0); BLOOD UREA NITROGEN 12 MG/DL (7-18); CALCIUM LEVEL 7.8 MG/DL (8.5-10.1); CARBON DIOXIDE LEVEL 28 MEQ/L (21-32); CHLORIDE LEVEL 104 MEQ/L (98-107); CREATININE FOR GFR 0.87 MG/DL (0.55-1.30); GLOMERULAR FILTRATION RATE > 60.0 (>60); GLUCOSE, FASTING 84 MG/DL (70-100); POTASSIUM SERUM 3.3 MEQ/L (3.5-5.1); SODIUM LEVEL 137 MEQ/L (136-145); TOTAL PROTEIN 7.1 GM/DL (6.4-8.2)
--- NOTE | 2019-01-31 00:51 | REPVR ---
EXAM: US Duplex Right Lower Extremity Veins, Limited EXAM DATE/TIME: 01/30/2019 12:12 AM CLINICAL HISTORY: 38 years old, female; Pain; Leg, upper; Right; Additional info: Right leg pain, HX of dvt's TECHNIQUE: Imaging protocol: Real-time Duplex ultrasound of the Right Lower Extremity with 2-D raza scale, color Doppler flow and spectral waveform analysis. Limited exam was focused on the right lower extremity veins. COMPARISON: US Duplex, Ext,LOWER veins,unilat 08/03/2018 7:42 PM FINDINGS: There is spontaneous, phasic color flow and compressibility of the deep veins. Augmentation to flow is noted. There is no evidence of DVT in the evaluated right lower extremity. Color flow is noted at the visualized proximal right greater saphenous vein. The calf veins are not evaluated on this exam. No perivenous soft tissue fluid collection seen. IMPRESSION: No evidence of DVT in the right lower extremity from the common femoral vein to the popliteal vein. Electronically signed by: Des Ace On 01/31/2019 00:50:33 AM
[2019-01-31] MEDS ORDERED: GABA-843 PO (01:17)
[2019-01-31] MEDS ORDERED: PRED20TA PO (01:17)
[2019-01-31] MEDS ORDERED: HYDR-3715 PO (01:42)
[2019-01-31] MEDS ORDERED: NORCO 5/325MG TABLET (BULK FOR ED) PO ONE (01:45)
[2019-01-31 02:38] VITALS: BP 108/64
--- NOTE | 2019-01-31 09:52 | REP ---
Right tib-fib series: Four views. History: Right knee and ankle pain. Findings: Four views of the right tib-fib are compared with right knee radiographs from 02/13/2016. Today's views demonstrate normal bones, joints, and soft tissues. No fracture or subluxation is seen. There is minimal Achilles calcaneal spurring. Impression: No acute abnormality. Electronically Signed by Myke Quiros MD 01/31/2019 09:44 A
== END 2019-01-31 02:01 | disposition home or self-care (01) ==
LOC: M ED 21:42
DX: M79.604 Pain in right leg (principal); Z79.01 Long term (current) use of anticoagulants; K21.9 Gastro-esophageal reflux disease without esophagitis; G93.5 Compression of brain; M79.7 Fibromyalgia; F33.9 Major depressive disorder, recurrent, unspecified; F41.9 Anxiety disorder, unspecified; M32.9 Systemic lupus erythematosus, unspecified; Z86.711 Personal history of pulmonary embolism; Z86.718 Personal history of other venous thrombosis and embolism; F17.210 Nicotine dependence, cigarettes, uncomplicated
CPT/HCPCS: 73590; 80053; 83036; 85025; 85610; 85730; 93971; 96372; 99283; J2930

== ENCOUNTER → 2019-01-30 | Outpatient (REF) | payer OTHER ==
[~2019-01-30] MED LIST changes: -/ADVA50050 INH; +ADVA1AER2 INH; +CLOT1CRE27 TOP; -CLOTR1CR TOP; +DICY20TA; +HYDR-3715 PO; -LIDO1SOL7 SSP; +LIDO1SOL8 SSP; +LIDVISCBTL TOP; -NORCOTAB PO
[2019-01-30 14:21] LABS: INR 2.79
== END ==
LOC: M LABDRAW1 12:26
PROVIDERS: ATTEND Family Medicine
DX: Z79.01 Long term (current) use of anticoagulants (principal)

== ENCOUNTER 2019-02-05 09:51 | Emergency (ER) | payer OTHER ==
[~2019-02-05] VITALS: Ht 165.1 cm; Wt 75.0 kg
[~2019-02-05 09:51] MED LIST changes: +DICY20TA
[2019-02-05 09:53] VITALS: BP 110/73
[2019-02-05] MEDS ORDERED: CLEO300C2 PO (10:15)
[2019-02-05] MEDS ORDERED: LIDVISCBTL TOP (10:23)
== END 2019-02-05 10:28 | disposition home or self-care (01) ==
LOC: M ED 09:51
DX: K04.7 Periapical abscess without sinus (principal); R22.0 Localized swelling, mass and lump, head; Q07.00 Arnold-Chiari syndrome without spina bifida or hydrocephalus; R42 Dizziness and giddiness; M79.7 Fibromyalgia; Z86.718 Personal history of other venous thrombosis and embolism; J45.909 Unspecified asthma, uncomplicated; K21.9 Gastro-esophageal reflux disease without esophagitis; Z87.442 Personal history of urinary calculi; M54.89 Other dorsalgia; F41.9 Anxiety disorder, unspecified; F32.9 Major depressive disorder, single episode, unspecified; F43.10 Post-traumatic stress disorder, unspecified; Z88.5 Allergy status to narcotic agent; Z88.8 Allergy status to other drugs, medicaments and biological substances; Z79.01 Long term (current) use of anticoagulants; Z79.899 Other long term (current) drug therapy

== ENCOUNTER → 2019-05-14 | Outpatient (REF) | payer OTHER ==
[~2019-05-14] MED LIST changes: +LIDVISCBTL TOP; -OMEP20CA3; +OMEP20CA4; +TIZA2TA PO
[2019-05-15 13:56] LABS: INR 3.97; PROTHROMBIN TIME 38.9 SECONDS (11.8-14.0)
== END ==
LOC: M SFHCPLAZ 15:38
PROVIDERS: ATTEND Physician Assistant Medical
DX: D68.62 Lupus anticoagulant syndrome (principal)

== ENCOUNTER 2019-05-18 19:30 | Emergency (ER) | payer OTHER ==
[~2019-05-18] VITALS: Ht 165.1 cm; Wt 81.8 kg
[~2019-05-18 19:30] MED LIST changes: -TIZA2TA PO
[2019-05-18] MEDS ORDERED: TIZA2TA PO (19:36)
[2019-05-18] MEDS ORDERED: NORCO, ANEXSIA 5/325MG TABLET (HYDROcodone/ACETAMINOPHEN) PO ONE (22:30)
[2019-05-18 23:33] LABS: INR 3.8; PROTHROMBIN TIME 37.5 SECONDS (11.8-14.0)
--- NOTE | 2019-05-19 00:07 | REPVR ---
EXAM: US Duplex Left Lower Extremity Veins, Limited EXAM DATE/TIME: 05/18/2019 10:57 PM CLINICAL HISTORY: 38 years old, female; Injury or trauma; Fall; Initial encounter; Swelling (edema); Injury date: Today; Additional info: Fall, PT tendor, coumadin levels "off" TECHNIQUE: Imaging protocol: Real-time Duplex ultrasound of the Left Lower Extremity with 2-D raza scale, color Doppler flow and spectral waveform analysis with image documentation. Limited exam focused on the left lower extremity veins. COMPARISON: No relevant prior studies available. FINDINGS: Left deep veins: Unremarkable. The common femoral, femoral and popliteal veins are patent without thrombus. Normal compressibility, augmentation response and Doppler waveforms. Left superficial veins: Unremarkable. Saphenofemoral junction is patent without thrombus. Soft tissues: 3.8 x 0.8 x 2.6 cm complex collection with associated soft tissue swelling along the anterior aspect of the lower leg. IMPRESSION: 1. No sonographic evidence of deep vein thrombosis. 2. 3.8 x 0.8 x 2.6 cm complex collection with associated soft tissue swelling along the anterior aspect of the lower leg. Query hematoma. Infection cannot be excluded. Electronically signed by: Jose De Jesus Morris On 05/19/2019 00:06:59 AM
[2019-05-19 00:43] VITALS: BP 106/67
--- NOTE | 2019-05-19 05:28 | REP ---
Clinical: Trauma/injury. Technique: AP and lateral views of the left tibia / fibula. Findings: No acute fracture or dislocation. Skeletal structures, joint spaces, and surrounding soft tissues are normal. No subcutaneous emphysema or radiodense foreign body. Impression: No acute fracture or dislocation. Electronically Signed by Tremaine Hurd MD 05/19/2019 05:19 A
--- NOTE | 2019-05-19 05:29 | REP ---
Clinical: Trauma. Technique: AP, lateral, bilateral oblique views right wrist . Findings: The carpal bones, surrounding osseous structures, soft tissues, and joint spaces are normal. There is no evidence for acute fracture or dislocation. No subcutaneous emphysema or radiodense foreign body. Impression: Normal right wrist series. No acute fracture or dislocation Electronically Signed by Tremaine Hurd MD 05/19/2019 05:21 A
--- NOTE | 2019-05-19 05:30 | REP ---
Clinical: Trauma. Technique: AP, lateral, bilateral oblique views of the right ankle. Findings: Moderate lateral swelling consist with inversion injury. No acute fracture dislocation. Ankle mortise intact. No subcutaneous emphysema or foreign body. Impression: Lateral swelling. No acute fracture or dislocation. Electronically Signed by Tremaine Hurd MD 05/19/2019 05:22 A
== END 2019-05-19 00:49 | disposition home or self-care (01) ==
LOC: M ED 19:30
DX: S93.401A Sprain of unspecified ligament of right ankle, initial encounter (principal); S80.12XA Contusion of left lower leg, initial encounter; S60.221A Contusion of right hand, initial encounter; W19.XXXA Unspecified fall, initial encounter; Y92.098 Other place in other non-institutional residence as the place of occurrence of the external cause; M79.7 Fibromyalgia; G93.5 Compression of brain; Z86.718 Personal history of other venous thrombosis and embolism; F17.200 Nicotine dependence, unspecified, uncomplicated; Z79.899 Other long term (current) drug therapy; Z79.01 Long term (current) use of anticoagulants; Z87.442 Personal history of urinary calculi; Z88.5 Allergy status to narcotic agent

== ENCOUNTER → 2019-05-27 | Outpatient (CLI) | payer OTHER ==
[~2019-05-27] MED LIST changes: +TIZA2TA PO
--- NOTE | 2019-05-27 13:01 | REP ---
Clinical: Left lower extremity pain . Technique: Rivera scale and color Doppler evaluation using linear high frequency transducer. Findings: Ultrasound examination of the left lower extremity deep venous structures from the common femoral vein to the popliteal vein demonstrates normal compressibility flow and wave patterns in response to respiration and augmentation. There is no evidence for deep venous thrombosis. Impression: No evidence for deep venous thrombosis. Electronically Signed by Tremaine Hurd MD 05/27/2019 12:53 P
--- NOTE | 2019-05-27 13:06 | REP ---
Clinical: Hematoma. Technique: Real time raza scale and color evaluation using curved array transducer. Findings: Directed ultrasound examination along the left anterior calf at the site of maximal bruising and swelling demonstrates a small curvilinear fluid collection inferior to the knee measuring 3.9 x 3.7 x 0.9 cm and consistent with small hematoma. Impression: Curvilinear fluid collection in the deep subcutaneous tissues suggesting hematoma. Follow-up may be warranted. Electronically Signed by Tremaine Hurd MD 05/27/2019 12:58 P
== END ==
LOC: M RAD 12:00
PROVIDERS: ATTEND Physician Assistant Medical
DX: T14.8XXA Other injury of unspecified body region, initial encounter (principal); Y92.89 Other specified places as the place of occurrence of the external cause

== ENCOUNTER → 2019-05-28 | Outpatient (CLI) | payer OTHER ==
[~2019-05-28] MED LIST changes: +E-Z-GAS II EFFERVESCENT PACKET (SODIUM BICARB./CITRIC ACID/SIMETHICONE) As Ordered ONE; +E-Z-HD 98% w/w 340GM SUSP BTL As Ordered ONE; +E-Z-PAQUE 96% w/w SUSP 176GM BTL As Ordered ONE
--- NOTE | 2019-05-28 17:30 | REP ---
Upper GI air contrast The procedure was performed under the direct supervision of Dr. Norris. The images were reviewed with Dr. Norris. The stone cutter film shows no organomegaly or pathological masses. The intestinal gas pattern is non-specific. There are tubal ligation clips seen in the pelvis. Liquid barium and gas producing crystals were given in the erect position as well as liquid barium in the prone oblique position in order to perform a double contrast upper GI examination. The oral and pharyngeal stages of deglutition are unremarkable. Esophageal transport is prompt and efficient and there is no esophagitis, stricture, mucosal ring or hiatal hernia. There is gastroesophageal reflux demonstrated to the level of the thoracic inlet. The stomach temple are normally outlined . The rugal folds are smooth and regular. There is no gastritis neoplasm or ulcer disease. The duodenal temple are normally outlined . The mucosal folds are smooth and regular. There is no duodenitis pancreatitis peptic ulcer disease or neoplasm. The visualized portion of the proximal small bowel appears normal in course and caliber. Impression: There is gastroesophageal reflux demonstrated to the level of the thoracic inlet. Otherwise, unremarkable double contrast upper GI examination. 1.3 minutes of fluoro time was utilized for this procedure. Reviewed by LORIE Rodriguez 05/28/2019 04:21 P Electronically Signed by Hai Norris MD 05/28/2019 05:20 P
== END ==
LOC: M RAD 09:11
PROVIDERS: ATTEND Physician Assistant Medical
DX: K27.9 Peptic ulcer, site unspecified, unspecified as acute or chronic, without hemorrhage or perforation (principal); K21.9 Gastro-esophageal reflux disease without esophagitis

== ENCOUNTER → 2019-06-19 | Outpatient (REF) | payer OTHER ==
[~2019-06-19] MED LIST changes: -E-Z-GAS II EFFERVESCENT PACKET (SODIUM BICARB./CITRIC ACID/SIMETHICONE) As Ordered ONE; -E-Z-HD 98% w/w 340GM SUSP BTL As Ordered ONE; -E-Z-PAQUE 96% w/w SUSP 176GM BTL As Ordered ONE; -MECL12.575; +MECL12.589; +OMEP1CAP73; -OMEP20CA4
[2019-06-19 12:08] LABS: BASO # 0.1 10^3/uL (0.0-0.2); BASO % 0.8 % (0.0-1.0); EOS # 0.2 10^3/uL (0.0-0.50); EOS % 2.6 % (0.0-3.0); HEMATOCRIT 37.1 % (36.0-47.0); LYMPH # 1.7 10^3/uL (1.5-4.5); LYMPH % 27.2 % (24.0-44.0); MEAN CORPUSCULAR HEMOGLOBIN 29.4 pg (27.0-33.0); MEAN CORPUSCULAR HGB CONC 32.3 g/dl (32.0-36.5); MEAN CORPUSCULAR VOLUME 90.9 fl (80.0-96.0); MONO # 0.3 10^3/uL (0.0-0.8); MONO % 5.3 % (0.0-5.0); NEUTROPHILS # 3.9 10^3/uL (1.8-7.7); NEUTROPHILS % 63.8 % (36.0-66.0); PLATELET COUNT, AUTOMATED 299 10^3/uL (150-450); RED BLOOD COUNT 4.08 10^6/uL (4.00-5.40); WHITE BLOOD COUNT 6.2 10^3/uL (4.0-10.0)
[2019-06-19 12:39] LABS: BLOOD UREA NITROGEN 12 MG/DL (7-18); CREATININE FOR GFR 0.71 MG/DL (0.55-1.30); GLUCOSE, FASTING 82 MG/DL (70-100)
[2019-06-19 12:40] LABS: ALBUMIN 3.7 GM/DL (3.2-5.2); ALT/SGPT 18 U/L (12-78); BILIRUBIN,TOTAL 0.3 MG/DL (0.2-1.0); CALCIUM LEVEL 8.5 MG/DL (8.5-10.1); CARBON DIOXIDE LEVEL 27 MEQ/L (21-32); CHLORIDE LEVEL 106 MEQ/L (98-107); FERRITIN 27 NG/ML (8-252); GLOMERULAR FILTRATION RATE > 60.0 (>60); IRON (FE) 76 UG/DL (50-170); PERCENT SATURATION 29.5 % (13.2-45.0); POTASSIUM SERUM 4.2 MEQ/L (3.5-5.1); SODIUM LEVEL 139 MEQ/L (136-145); TOTAL IRON BINDING CAPACITY 258 UG/DL (250-450); TOTAL PROTEIN 6.6 GM/DL (6.4-8.2)
== END ==
LOC: M SFHCPLAZ 09:55
PROVIDERS: ATTEND Physician Assistant Medical
DX: K27.9 Peptic ulcer, site unspecified, unspecified as acute or chronic, without hemorrhage or perforation (principal); F33.0 Major depressive disorder, recurrent, mild

== ENCOUNTER 2019-07-21 13:15 | Outpatient (RCR) | payer OTHER ==
[~2019-07-21 13:15] MED LIST changes: +MECL12.575; -MECL12.589; -OMEP1CAP73; +OMEP20CA4
== END 2019-07-28 ==
LOC: M PT 13:15
PROVIDERS: ATTEND Physician Assistant Medical
DX: Z51.89 Encounter for other specified aftercare (principal); T14.8XXD Other injury of unspecified body region, subsequent encounter

== ENCOUNTER → 2019-07-27 | Outpatient (CLI) | payer OTHER ==
[2019-07-27 15:48] LABS: INR 2.02; PROTHROMBIN TIME 22.6 SECONDS (11.8-14.0)
== END ==
LOC: M LAB 14:16
PROVIDERS: ATTEND Dentist Oral and Maxillofacial Surgery
DX: Z79.01 Long term (current) use of anticoagulants (principal)

== ENCOUNTER → 2019-07-29 | Outpatient (REF) | payer OTHER ==
[2019-07-29 18:36] LABS: APPEARANCE, URINE CLOUDY (CLEAR); BACTERIA, URINE AUTO NEGATIVE (NEGATIVE); BILIRUBIN, URINE AUTO 1+ (NEGATIVE); BLOOD, URINE BLOOD 2+ (NEGATIVE); CALCIUM OXALATE CRYSTALS SMALL; COLOR, URINE AMBER (YELLOW); GLUCOSE, URINE (UA) AUTO NEGATIVE (NEGATIVE); KETONE, URINE AUTO NEGATIVE (NEGATIVE); LEUKOCYTE ESTERASE, URINE AUTO 2+ (NEGATIVE); MUCUS, URINE SMALL (NEGATIVE); NITRITE, URINE AUTO NEGATIVE (NEGATIVE); PROTEIN, URINE AUTO 1+ mg/dL (NEGATIVE); RBC, URINE AUTO 90 /HPF (0-3); SPECIFIC GRAVITY URINE AUTO 1.029 (1.002-1.035); SQUAMOUS EPITHELIAL CELL UR AU 8 /HPF (0-6); WBC, URINE AUTO 18 /HPF (0-3)
== END ==
LOC: M LAB REF 16:44
PROVIDERS: ATTEND Physician Assistant Medical
DX: N39.0 Urinary tract infection, site not specified (principal)

== ENCOUNTER → 2019-08-19 | Outpatient (REF) | payer OTHER ==
[2019-08-19 14:15] LABS: INR 2.26; PROTHROMBIN TIME 24.8 SECONDS (11.8-14.0)
== END ==
LOC: M SFHCPLAZ 13:15
PROVIDERS: ATTEND Physician Assistant Medical
DX: D68.62 Lupus anticoagulant syndrome (principal)

== ENCOUNTER 2019-12-27 20:17 | Emergency (ER) | payer MEDICAID, OTHER ==
[~2019-12-27] VITALS: Ht 165.1 cm; Wt 77.1 kg
[~2019-12-27 20:17] MED LIST changes: -LIDO1SOL8 SSP; +LIDO2SOL17 SSP; -MECL12.575; +MECL12.589; +OMEP1CAP73; -OMEP20CA4
[2019-12-27] MEDS ORDERED: WARF-18 (20:29)
[2019-12-27] MEDS ORDERED: AMOX875T2 (20:29)
[2019-12-27] MEDS ORDERED: ALPR1TAB3 (20:29)
[2019-12-27] MEDS ORDERED: OMEP-221 (20:29)
[2019-12-27 20:59] LABS: BASO % 0.6 % (0.0-1.0); EOS # 0.1 10^3/uL (0.0-0.5); EOS % 1.3 % (0.0-3.0); HEMOGLOBIN 12.5 g/dl (12.0-15.5); LYMPH # 2.9 10^3/uL (1.5-5.0); LYMPH % 41.1 % (24.0-44.0); MEAN CORPUSCULAR HEMOGLOBIN 30.1 pg (27.0-33.0); MEAN CORPUSCULAR HGB CONC 32.9 g/dl (32.0-36.5); MEAN CORPUSCULAR VOLUME 91.6 fl (80.0-96.0); MONO # 0.3 10^3/uL (0.0-0.8); MONO % 4.7 % (0.0-5.0); NEUTROPHILS # 3.6 10^3/uL (1.5-8.5); NEUTROPHILS % 52.2 % (36.0-66.0); PLATELET COUNT, AUTOMATED 296 10^3/uL (150-450); RED BLOOD COUNT 4.15 10^6/uL (4.00-5.40)
[2019-12-27] MEDS ORDERED: NS 1,000 ML IV ONE (21:00)
[2019-12-27] MEDS ORDERED: ONDANSETRON 4MG/2ML VIAL (J2405) IV ONE (21:00)
[2019-12-27] MEDS ORDERED: POTASSIUM CHLORIDE 10% LIQ 20 MEQ/15 ML UDC PO ONE (21:00)
[2019-12-27 21:14] LABS: INR 1.93; PROTHROMBIN TIME 21.9 SECONDS (11.8-14.0)
[2019-12-27 21:22] LABS: ALBUMIN 4.1 GM/DL (3.2-5.2); BILIRUBIN,DIRECT 0.1 MG/DL (0.0-0.2); BILIRUBIN,TOTAL 0.3 MG/DL (0.2-1.0); TOTAL PROTEIN 7.3 GM/DL (6.4-8.2)
--- NOTE | 2019-12-27 22:06 | REPVR ---
PROCEDURE INFORMATION: Exam: US Retroperitoneal Limited, Kidneys Exam date and time: 12/27/2019 9:24 PM Age: 39 years old Clinical indication: Abdominal pain; Flank; Other: Bilateral; Additional info: CVA tenderness and hematuria TECHNIQUE: Imaging protocol: Real-time ultrasound of the retroperitoneum with image documentation. Examination was focused on the kidneys. COMPARISON: XA Upper G.I. Series [id number] 05/28/2019 9:22 AM FINDINGS: Right kidney: The right kidney measures 10.3 x 4.5 by 5.2 cm. No hydronephrosis in the right kidney. Suboptimal visualization of the extreme lower pole of the right kidney due to bowel gas. Left kidney: Left kidney measures 9.9 x 5.1 by 3.9 cm. No left-sided hydronephrosis. Bladder: Color Doppler examination of the bladder demonstrates a left ureteral jet. IMPRESSION: No hydronephrosis in either kidney Electronically signed by: Brittany Dale On 12/27/2019 22:05:38 PM
[2019-12-27] MEDS ORDERED: ISOVUE-370 76% 100ML VIAL (Q9967) As Ordered ONE (22:12)
--- NOTE | 2019-12-27 23:18 | REPVR ---
PROCEDURE INFORMATION: Exam: CT Abdomen And Pelvis With Contrast Exam date and time: 12/27/2019 10:28 PM Age: 39 years old Clinical indication: Abdominal pain; Generalized; Additional info: Abd pain R/O infectious process TECHNIQUE: Imaging protocol: Computed tomography of the abdomen and pelvis with intravenous contrast. Radiation optimization: All CT scans at this facility use at least one of these dose optimization techniques: automated exposure control; mA and/or kV adjustment per patient size (includes targeted exams where dose is matched to clinical indication); or iterative reconstruction. Contrast material: ISOVUE 370; Contrast volume: 100 ml; Contrast route: IV; COMPARISON: CT ABD/PEL W/IV CONTRAST ONLY 05/11/2018 10:20 PM FINDINGS: Lungs: Small blebs in the right middle lobe and right lower lobe. Liver: Hypervascular lesion in the left hepatic lobe measuring 16 x 9 mm. Hepatic segment 5. Series 201, image 47. Gallbladder and bile ducts: Status post cholecystectomy. CBD measures 7 mm. Pancreas: Normal. No ductal dilation. Spleen: Normal. No splenomegaly. Adrenals: Normal. No mass. Kidneys and ureters: Normal. No hydronephrosis. Stomach and bowel: Copious stool in the colon. No abnormal bowel dilatation. No abnormal bowel wall thickening. Negative for colonic diverticulitis. Appendix: Appendix is normal. Intraperitoneal space: Small free fluid in the cul-de-sac. No free air. Vasculature: Unremarkable. No abdominal aortic aneurysm. Lymph nodes: Unremarkable. No enlarged lymph nodes. Bladder: Unremarkable as visualized. Reproductive: Uterus is normal. Benign-appearing cyst in the left ovary measuring 1.7 x 2.2 cm. Benign-appearing cyst in the left ovary measuring 1.8 x 2.7 cm. Bilateral tubal ligation clips are present. Bones/joints: Bilateral L5 spondylolysis. 5 mm spondylolisthesis of L5 on S1. No acute fracture. Benign bone island in the left femoral head. Soft tissues: Unremarkable. IMPRESSION: 1. No CT findings to suggest source of infection. 2. Benign-appearing left ovarian cysts. Follow-up is not necessary. 3. Stable hypervascular lesion in the left hepatic lobe. Unchanged from prior. In a low-risk patient, this lesion is most likely to be benign hemangioma or focal nodular hyperplasia and no further follow-up is recommended. 4. Small fluid in the pelvis. Probably physiologic. 5. Additional findings as described. Electronically signed by: Javier Pittman On 12/27/2019 23:18:12 PM
[2019-12-27] MEDS ORDERED: DOXY100C37 PO (23:42)
[2019-12-27] MEDS ORDERED: DOXYCYCLINE HYCLATE 100 MG TAB PO ONE (23:45)
[2019-12-27] MEDS ORDERED: POTASSIUM CHLORIDE 10 MEQ SR TABLET PO ONE (23:45)
[2019-12-27 23:50] VITALS: BP 101/60
--- NOTE | 2019-12-28 20:32 | ECGEPIP ---
[facility] - ED Test Date: 2019-12-27 Pat Name: GISELL FRIEDMAN Department: Room: - Gender: Female [employer]: pérez : 1980 Requested By: GUSTAVO MEANS Order Number: [id number] Reading MD: Everardo Cao Measurements Intervals [place] Rate: 56 P: 39 MI: 172 QRS: 74 QRSD: 85 T: 72 QT: 436 QTc: 424 Interpretive Statements SINUS BRADYCARDIA WITH SINUS ARRHYTHMIA SIMILAR TO 12/04/18 Electronically Signed on 12-28-2019 20:32:10 EST by Everardo Cao
== END 2019-12-27 23:57 | disposition home or self-care (01) ==
LOC: M ED 20:17
DX: N83.202 Unspecified ovarian cyst, left side (principal); L03.311 Cellulitis of abdominal wall; R94.31 Abnormal electrocardiogram [ECG] [EKG]; K76.89 Other specified diseases of liver; M43.06 Spondylolysis, lumbar region; R42 Dizziness and giddiness; G93.5 Compression of brain; K58.0 Irritable bowel syndrome with diarrhea; M32.9 Systemic lupus erythematosus, unspecified; M13.80 Other specified arthritis, unspecified site; Z86.718 Personal history of other venous thrombosis and embolism; F17.210 Nicotine dependence, cigarettes, uncomplicated; Z88.5 Allergy status to narcotic agent; Z79.01 Long term (current) use of anticoagulants; Z79.899 Other long term (current) drug therapy
CPT/HCPCS: 74177; 76775; 80047; 80076; 81001; 83690; 85025; 85610; 93005; 96361; 96374; 99284; J2405; Q9967

== ENCOUNTER → 2020-01-02 | Outpatient (REF) | payer OTHER ==
[~2020-01-02] MED LIST changes: +ALPR1TAB3; +AMOX875T2; +DOXY100C37 PO; +OMEP-221; +WARF-18
[2020-01-02 18:13] LABS: BASO % 0.6 % (0.0-1.0); EOS # 0.1 10^3/uL (0.0-0.5); EOS % 1.2 % (0.0-3.0); HEMATOCRIT 40.1 % (36.0-47.0); HEMOGLOBIN 12.9 g/dl (12.0-15.5); LYMPH # 1.9 10^3/uL (1.5-5.0); LYMPH % 30.2 % (24.0-44.0); MEAN CORPUSCULAR HEMOGLOBIN 29.9 pg (27.0-33.0); MEAN CORPUSCULAR HGB CONC 32.2 g/dl (32.0-36.5); MONO # 0.3 10^3/uL (0.0-0.8); MONO % 5.1 % (0.0-5.0); NEUTROPHILS % 62.7 % (36.0-66.0); PLATELET COUNT, AUTOMATED 323 10^3/uL (150-450); RED BLOOD COUNT 4.31 10^6/uL (4.00-5.40); WHITE BLOOD COUNT 6.4 10^3/uL (4.0-10.0)
[2020-01-02 18:16] LABS: ALBUMIN 4.3 GM/DL (3.2-5.2); ALT/SGPT 24 U/L (12-78); BILIRUBIN,TOTAL 0.2 MG/DL (0.2-1.0); BLOOD UREA NITROGEN 14 MG/DL (7-18); CALCIUM LEVEL 8.7 MG/DL (8.5-10.1); CARBON DIOXIDE LEVEL 27 MEQ/L (21-32); CHLORIDE LEVEL 105 MEQ/L (98-107); CREATININE FOR GFR 0.76 MG/DL (0.55-1.30); GLOMERULAR FILTRATION RATE > 60.0 (>60); GLUCOSE, FASTING 80 MG/DL (70-100); POTASSIUM SERUM 4.4 MEQ/L (3.5-5.1); SODIUM LEVEL 138 MEQ/L (136-145); TOTAL PROTEIN 7.2 GM/DL (6.4-8.2)
== END ==
LOC: M SFHCPLAZ 14:32
PROVIDERS: ATTEND Physician Assistant Medical
DX: R10.84 Generalized abdominal pain (principal)

== ENCOUNTER → 2020-01-20 | Outpatient (CLI) | payer OTHER ==
[~2020-01-20] MED LIST changes: +ISOVUE-370 76% 100ML VIAL (Q9967) As Ordered ONE
--- NOTE | 2020-01-20 10:33 | REP ---
Clinical: Microhematuria. Technique: Axial precontrast, contrast enhanced, and delayed images of the abdomen and pelvis using 100 ml Isovue 370 intravenous contrast material with coronal and sagittal re-formations. Findings: The kidneys, ureters, and bladder are normal throughout the examination. No hydroureteronephrosis, nephroureterolithiasis, perinephric stranding, renal cystic or mass lesion appreciated. Liver, spleen, pancreas, and bilateral adrenal glands are normal. Evidence of prior cholecystectomy. The enteric system is without obstruction or acute inflammatory process. Pelvis demonstrates normal bladder and age-appropriate uterus/adnexa. Small amount of free fluid in the pelvis is likely physiologic. No free air. No adenopathy. Abdominal aorta without aneurysm or dissection. Osseous structures without acute osseous abnormality. Degenerative changes of the lumbosacral spine including chronic L5 spondylolysis and grade 1 spondylolisthesis. Impression: 1. Normal urinary tract system. 2. No acute abdominopelvic pathology appreciated. 3. Chronic L5 spondylolysis and grade 1 spondylolisthesis. Electronically Signed by Tremaine Hurd MD 01/20/2020 10:25 A
== END ==
LOC: M RAD 09:40
PROVIDERS: ATTEND Family Medicine
DX: R31.29 Other microscopic hematuria (principal); M47.896 Other spondylosis, lumbar region; M43.16 Spondylolisthesis, lumbar region
CPT/HCPCS: 74178; Q9967

== ENCOUNTER → 2020-01-22 | Outpatient (REF) | payer OTHER ==
[~2020-01-22] MED LIST changes: -ISOVUE-370 76% 100ML VIAL (Q9967) As Ordered ONE
[2020-01-22 13:34] LABS: APPEARANCE, URINE CLEAR (CLEAR); BACTERIA, URINE AUTO NEGATIVE (NEGATIVE); BILIRUBIN, URINE AUTO NEGATIVE (NEGATIVE); BLOOD, URINE BLOOD 2+ (NEGATIVE); COLOR, URINE YELLOW (YELLOW); GLUCOSE, URINE (UA) AUTO NEGATIVE (NEGATIVE); KETONE, URINE AUTO NEGATIVE (NEGATIVE); LEUKOCYTE ESTERASE, URINE AUTO NEGATIVE (NEGATIVE); MUCUS, URINE SMALL (NEGATIVE); NITRITE, URINE AUTO NEGATIVE (NEGATIVE); PROTEIN, URINE AUTO NEGATIVE (NEGATIVE); RBC, URINE AUTO 39 /HPF (0-3); SQUAMOUS EPITHELIAL CELL UR AU 0 /HPF (0-6); UROBILINOGEN, URINE AUTO 0.2 mg/dL (0.0-2.0); WBC, URINE AUTO 4 /HPF (0-3)
[2020-01-22 13:53] LABS: C REACTIVE PROTEIN QUANTITATIV 0.95 MG/DL (0.00-0.30); FREE T4 0.94 NG/DL (0.76-1.46); MAGNESIUM LEVEL 1.8 MG/DL (1.8-2.4); RHEUMATOID FACTOR QUANT < 10.0 IU/ML (<15.0)
[2020-01-22 13:58] LABS: HEMOGLOBIN A1c 5.5 %
== END ==
LOC: M SFHCPLAZ 08:46
PROVIDERS: ATTEND Family Medicine
DX: M47.816 Spondylosis without myelopathy or radiculopathy, lumbar region (principal); R31.29 Other microscopic hematuria; M79.7 Fibromyalgia

== ENCOUNTER → 2020-03-15 | Outpatient (CLI) | payer OTHER ==
[~2020-03-15] MED LIST changes: +OXYC-1 PO; -OXYC15TA76 PO
[2020-03-15 11:54] LABS: INR 1.98; PROTHROMBIN TIME 22.3 SECONDS (11.8-14.0)
== END ==
LOC: M LAB 10:42
PROVIDERS: ATTEND Physician Assistant Medical
DX: Z79.899 Other long term (current) drug therapy (principal)

== ENCOUNTER → 2020-04-01 | Outpatient (REF) | payer OTHER ==
[2020-04-01 14:07] LABS: INR 2.81; PROTHROMBIN TIME 29.5 SECONDS (11.8-14.0)
== END ==
LOC: M SFHCPLAZ 11:05
PROVIDERS: ATTEND Physician Assistant Medical
DX: E61.1 Iron deficiency (principal)

== ENCOUNTER → 2020-04-27 | Outpatient (REF) | payer OTHER ==
[2020-04-27 13:32] LABS: BASO % 0.7 % (0.0-1.0); EOS # 0.1 10^3/uL (0.0-0.5); EOS % 2.1 % (0.0-3.0); HEMOGLOBIN 12.1 g/dl (12.0-15.5); LYMPH # 1.4 10^3/uL (1.5-5.0); MEAN CORPUSCULAR HEMOGLOBIN 30.6 pg (27.0-33.0); MEAN CORPUSCULAR HGB CONC 32.7 g/dl (32.0-36.5); MEAN CORPUSCULAR VOLUME 93.7 fl (80.0-96.0); MONO # 0.3 10^3/uL (0.0-0.8); MONO % 5.2 % (0.0-5.0); NEUTROPHILS # 3.8 10^3/uL (1.5-8.5); NEUTROPHILS % 66.8 % (36.0-66.0); PLATELET COUNT, AUTOMATED 314 10^3/uL (150-450); RED BLOOD COUNT 3.95 10^6/uL (4.00-5.40); WHITE BLOOD COUNT 5.6 10^3/uL (4.0-10.0)
[2020-04-27 13:52] LABS: INR 3.54; PROTHROMBIN TIME 35.5 SECONDS (11.8-14.0)
[2020-04-27 13:54] LABS: RHEUMATOID FACTOR QUANT < 10.0 IU/ML (<15.0)
[2020-04-27 14:44] LABS: ERYTHROCYTE SEDIMENTATION RATE 14 mm/hr (0-20)
[2020-04-29 00:08] LABS: ANA (HEP2) Negative (.); CYCLIC CITRULLINATED PEPTIDE 5 units (0-19)
== END ==
LOC: M PLALAB 11:28
PROVIDERS: ATTEND Physician Assistant Medical
DX: M25.561 Pain in right knee (principal); Z51.81 Encounter for therapeutic drug level monitoring

== ENCOUNTER → 2020-05-05 | Outpatient (REF) | payer OTHER ==
[2020-05-05 13:50] LABS: INR 2.56; PROTHROMBIN TIME 27.4 SECONDS (11.8-14.0)
== END ==
LOC: M SFHCPLAZ 10:39
PROVIDERS: ATTEND Physician Assistant Medical
DX: D68.62 Lupus anticoagulant syndrome (principal)

== ENCOUNTER → 2020-08-17 | Outpatient (CLI) | payer OTHER ==
--- NOTE | 2020-08-17 16:37 | REPVR ---
PROCEDURE INFORMATION: Exam: CT Head Without Contrast Exam date and time: 08/17/2020 3:53 PM Age: 40 years old Clinical indication: Pain; Headache; Additional info: Headache, unspecified TECHNIQUE: Imaging protocol: Computed tomography of the head without contrast. Radiation optimization: All CT scans at this facility use at least one of these dose optimization techniques: automated exposure control; mA and/or kV adjustment per patient size (includes targeted exams where dose is matched to clinical indication); or iterative reconstruction. COMPARISON: CT Head without contrast 01/28/2014 2:54 PM FINDINGS: Brain: There is no acute cortical infarction, intracranial hemorrhage or mass. Cerebral ventricles: No ventriculomegaly. Bones/joints: There is a suboccipital craniectomy which was also apparent on the prior study. Paranasal sinuses: Visualized sinuses are unremarkable. No fluid levels. Mastoid air cells: Visualized mastoid air cells are well aerated. Soft tissues: Unremarkable. IMPRESSION: No acute intracranial findings. Electronically signed by: Melanie Diaz On 08/17/2020 16:37:14 PM
== END ==
LOC: M RAD 15:23
PROVIDERS: ATTEND Physician Assistant Medical
DX: R51.9 Headache, unspecified (principal)

== ENCOUNTER → 2020-08-17 | Outpatient (REF) | payer OTHER ==
[2020-08-17 18:20] LABS: BASO % 0.1 % (0.0-1.0); HEMATOCRIT 37.1 % (36.0-47.0); HEMOGLOBIN 11.9 g/dl (12.0-15.5); LYMPH # 0.9 10^3/uL (1.5-5.0); LYMPH % 10.5 % (24.0-44.0); MEAN CORPUSCULAR HGB CONC 32.1 g/dl (32.0-36.5); MEAN CORPUSCULAR VOLUME 96.6 fl (80.0-96.0); MONO # 0.1 10^3/uL (0.0-0.8); MONO % 0.7 % (0.0-5.0); NEUTROPHILS # 7.4 10^3/uL (1.5-8.5); NEUTROPHILS % 88.3 % (36.0-66.0); PLATELET COUNT, AUTOMATED 351 10^3/uL (150-450); RED BLOOD COUNT 3.84 10^6/uL (4.00-5.40); WHITE BLOOD COUNT 8.4 10^3/uL (4.0-10.0)
[2020-08-17 18:51] LABS: FERRITIN 30 NG/ML (8-252); IRON (FE) 78 UG/DL (50-170)
[2020-08-22 07:22] LABS: CODEINE, URINE Negative (Cutoff=100); CREATININE, URINE 45.4 mg/dL (20.0-300.0); HYDROCODONE CONFIRM, URINE 986 ng/mL (Cutoff=100); HYDROCODONE, URINE Positive (.); HYDROMORPHONE, URINE Negative (Cutoff=100); MORPHINE, URINE Negative (Cutoff=100); OPIATES, URINE Positive ng/mL (Cutoff=300)
== END ==
LOC: M SFHCPLAZ 15:00
PROVIDERS: ATTEND Physician Assistant Medical
DX: Z51.81 Encounter for therapeutic drug level monitoring (principal); Z79.891 Long term (current) use of opiate analgesic; N93.9 Abnormal uterine and vaginal bleeding, unspecified

== ENCOUNTER → 2020-10-13 | Outpatient (REF) | payer OTHER ==
[~2020-10-13] MED LIST changes: -MECL12.589; +MECL12.590
[2020-10-13 11:11] LABS: BASO % 0.7 % (0.0-1.0); EOS # 0.2 10^3/uL (0.0-0.5); EOS % 2.6 % (0.0-3.0); HEMATOCRIT 38.5 % (36.0-47.0); HEMOGLOBIN 12.5 g/dl (12.0-15.5); LYMPH % 31.7 % (24.0-44.0); MEAN CORPUSCULAR HEMOGLOBIN 31.3 pg (27.0-33.0); MEAN CORPUSCULAR HGB CONC 32.5 g/dl (32.0-36.5); MEAN CORPUSCULAR VOLUME 96.5 fl (80.0-96.0); MONO # 0.4 10^3/uL (0.0-0.8); NEUTROPHILS # 3.6 10^3/uL (1.5-8.5); NEUTROPHILS % 58.7 % (36.0-66.0); PLATELET COUNT, AUTOMATED 341 10^3/uL (150-450); RED BLOOD COUNT 3.99 10^6/uL (4.00-5.40); WHITE BLOOD COUNT 6.2 10^3/uL (4.0-10.0)
[2020-10-13 11:23] LABS: INR 2.61; PROTHROMBIN TIME 28.5 SECONDS (12.5-14.3)
[2020-10-13 11:38] LABS: FERRITIN 25 NG/ML (8-252); IRON (FE) 45 UG/DL (50-170)
== END ==
LOC: M SFHCPLAZ 09:22
PROVIDERS: ATTEND Physician Assistant Medical
DX: E61.1 Iron deficiency (principal)

== ENCOUNTER → 2020-12-08 | Outpatient (REF) | payer OTHER ==
[~2020-12-08] MED LIST changes: -DICY20TA; +DICY20TA3; +GABA-282 PO; -GABA-843 PO
[2020-12-08 14:01] LABS: INR 2.03; PROTHROMBIN TIME 23.4 SECONDS (12.5-14.3)
== END ==
LOC: M SFHCPLAZ 11:44
PROVIDERS: ATTEND Physician Assistant Medical
DX: Z51.81 Encounter for therapeutic drug level monitoring (principal)

== ENCOUNTER → 2021-03-08 | Outpatient (CLI) | payer OTHER ==
[~2021-03-08] MED LIST changes: +MECL-136; -MECL12.590
--- NOTE | 2021-03-09 09:24 | REP ---
INDICATION: N93.9 AUB COMPARISON: 07/21/2013 TECHNIQUE: Transabdominal pelvic ultrasound followed with color Doppler evaluation of the ovaries. Patient declined transvaginal examination. FINDINGS: Bladder is unremarkable and measures 9.8 x 8.5 x 9.0 cm. Normal anteverted uterus measures 6.9 x 3.5 x 5.7 cm. The endometrial complex measures 6.0 mm thickness. No discrete uterine or endometrial abnormalities are appreciated. Bilateral ovaries are normal in appearance and vascularity without evidence for torsion. Right ovary measures 3.9 x 2.5 x 1.6 cm with 1.3 cm dominant follicle; R I = 0.52. Left ovary measures 1.9 x 2.6 x 2.0 cm; R I = 0.55. No pelvic fluid or adnexal mass lesion. IMPRESSION: No gross abnormalities are identified. <Electronically signed by Tremaine Hurd > 03/09/21 [id number]
== END ==
LOC: M WHC 12:24
PROVIDERS: ATTEND Nurse Practitioner Family
DX: N93.9 Abnormal uterine and vaginal bleeding, unspecified (principal)

== ENCOUNTER → 2021-03-09 | Outpatient (REF) | payer OTHER | LOC: M LAB REF 13:08 | PROVIDERS: ATTEND Physician Assistant Medical | DX: L40.9 Psoriasis, unspecified (principal) ==

== ENCOUNTER → 2021-03-09 | Outpatient (REF) | payer OTHER ==
[2021-03-10 11:40] LABS: DRVV SCREEN 61.4 SEC
[2021-03-10 11:41] LABS: PTT LUPUS TYPE ANTICOAG SCREEN 1.5 (0-1.2)
[2021-03-10 11:50] LABS: DRVV CONFIRM 42.5 SEC; LUPUS CONFIRM RATIO 1.1
[2021-03-10 11:51] LABS: NORMALIZED RATIO 1.36 (0.00-1.20)
[2021-03-10 23:07] LABS: ANA (HEP2) Positive (.); SSA SJOGRENS A <0.2 AI (0.0-0.9); SSB SJOGRENS B <0.2 AI (0.0-0.9)
== END ==
LOC: M SFHCPLAZ 09:21
PROVIDERS: ATTEND Physician Assistant Medical
DX: R21 Rash and other nonspecific skin eruption (principal); D68.62 Lupus anticoagulant syndrome

== ENCOUNTER → 2021-03-16 | Outpatient (REF) | payer OTHER | LOC: M SFHCPLAZ 10:58 | PROVIDERS: ATTEND Physician Assistant Medical | DX: D68.62 Lupus anticoagulant syndrome (principal) ==

== ENCOUNTER → 2021-04-04 | Outpatient (CLI) | payer OTHER ==
--- NOTE | 2021-04-04 10:36 | REP ---
INDICATION: TINNITUS - PT HAS JONATHAN CT COMPARISON: None. TECHNIQUE: Rivera scale and color Doppler evaluation using linear high frequency transducer Findings: FINDINGS: Two-dimensional rivera scale and color images demonstrate normal arterial lumen with laminar flow and no appreciable narrowing. Color Doppler interrogation demonstrates normal arterial wave patterns and velocities with no significant spectral broadening. Normal flow direction is appreciated in the bilateral vertebral arteries. ICA peak systolic velocity: Right 81.7 cm/s; Left 98.2 cm/s ICA diastolic velocity: Right 28.5 cm/s; Left 39.8 cm/s ECA peak systolic velocity: Right 85.5 cm/s; Left 77.7 cm/s CCA peak systolic velocity: Right 123 cm/s; Left 107 cm/s ICA/CCA ratio: Right 0.66 cm/s; Left 0.91 cm/s IMPRESSION: No hemodynamically significant areas of narrowing or stenosis appreciated. Based on set standards narrowing falls within the normal/less than 50% range. <Electronically signed by Tremaine Hurd > 04/04/21 [id number]
--- NOTE | 2021-04-04 10:51 | REPVR ---
PROCEDURE INFORMATION: Exam: CT Temporal Bones Without Contrast. Exam date and time: 04/04/2021 10:24 AM Age: 40 years old Clinical indication: Other: Tinnitus; Additional info: Tinnitus - PT has US luca - CT is w/o contrast TECHNIQUE: Imaging protocol: Computed tomography images of the temporal bones without contrast. Radiation optimization: All CT scans at this facility use at least one of these dose optimization techniques: automated exposure control; mA and/or kV adjustment per patient size (includes targeted exams where dose is matched to clinical indication); or iterative reconstruction. COMPARISON: CT Head without contrast 08/17/2020 4:05 PM FINDINGS: Right inner ear: Normal. Right ossicles and middle ear: Normal. The middle ear ossicles are intact. Right external auditory canal: Normal. Right facial nerve canal: Normal. Right jugular foramen: No jugular dehiscence. Right carotid canal: No aberrant carotid canal. Right mastoid air cells: Normal. No mastoid effusions. Left inner ear: Normal. Left ossicles and middle ear: Normal. The middle ear ossicles are intact. Left external auditory canal: Normal. Left facial nerve canal: Normal. Left jugular foramen: No jugular dehiscence. Left carotid canal: No aberrant carotid canal. Left mastoid air cells: Normal. No mastoid effusions. Soft tissues: Unremarkable. Other findings: Status post suboccipital IMPRESSION: No acute findings. Electronically signed by: Chio Bass On 04/04/2021 10:51:45 AM
== END ==
LOC: M RAD 09:55
PROVIDERS: ATTEND Otolaryngology
DX: H93.19 Tinnitus, unspecified ear (principal)

== ENCOUNTER → 2021-06-23 | Outpatient (CLI) | payer OTHER ==
[~2021-06-23] MED LIST changes: -DOXY100C37 PO; +DOXY1CAP62 PO
== END ==
LOC: M PLALAB 12:50
PROVIDERS: ATTEND Physician Assistant Medical
DX: L02.01 Cutaneous abscess of face (principal)

== ENCOUNTER → 2021-06-24 | Outpatient (CLI) | payer OTHER | LOC: M PLALAB 09:20 | PROVIDERS: ATTEND Physician Assistant Medical | DX: L02.01 Cutaneous abscess of face (principal) ==

== ENCOUNTER → 2021-07-06 | Outpatient (CLI) | payer OTHER | LOC: M LAB 17:40 | PROVIDERS: ATTEND Physician Assistant Medical | DX: D68.59 Other primary thrombophilia (principal) ==

== ENCOUNTER → 2021-08-04 | Outpatient (CLI) | payer OTHER ==
--- NOTE | 2021-08-04 12:46 | REP ---
INDICATION: PSORIASIS, UNSPECIFIED COMPARISON: 12/04/2018 TECHNIQUE: PA and lateral. FINDINGS: The mediastinum and cardiac silhouette are normal. The lung sorensen are clear and without acute consolidation, effusion, or pneumothorax. The skeletal structures are intact and normal. IMPRESSION: No acute cardiopulmonary process. <Electronically signed by Tremaine Hurd > 08/04/21 [id number]
[2021-08-04 15:28] LABS: RED BLOOD COUNT 4.15 10^6/uL (4.00-5.40); WHITE BLOOD COUNT 4.7 10^3/uL (4.0-10.0)
[2021-08-04 15:29] LABS: BASO % 0.8 % (0.0-1.0); EOS # 0.1 10^3/uL (0.0-0.5); EOS % 2.5 % (0.0-3.0); HEMATOCRIT 40.2 % (36.0-47.0); HEMOGLOBIN 12.9 g/dl (12.0-15.5); LYMPH # 1.3 10^3/uL (1.5-5.0); LYMPH % 27.9 % (24.0-44.0); MEAN CORPUSCULAR HEMOGLOBIN 31.1 pg (27.0-33.0); MEAN CORPUSCULAR HGB CONC 32.1 g/dl (32.0-36.5); MEAN CORPUSCULAR VOLUME 96.9 fl (80.0-96.0); MONO # 0.4 10^3/uL (0.0-0.8); MONO % 7.6 % (2.0-8.0); NEUTROPHILS # 2.9 10^3/uL (1.5-8.5); PLATELET COUNT, AUTOMATED 325 10^3/uL (150-450)
[2021-08-04 17:55] LABS: ALBUMIN 3.5 GM/DL (3.2-5.2); ALT/SGPT 20 U/L (12-78); BILIRUBIN,TOTAL 0.3 MG/DL (0.2-1.0); BLOOD UREA NITROGEN 12 MG/DL (7-18); CALCIUM LEVEL 8.6 MG/DL (8.5-10.1); CARBON DIOXIDE LEVEL 27 MEQ/L (21-32); CHLORIDE LEVEL 104 MEQ/L (98-107); CREATININE FOR GFR 0.72 MG/DL (0.55-1.30); GLOMERULAR FILTRATION RATE > 60.0 (>60); GLUCOSE, FASTING 83 MG/DL (70-100); POTASSIUM SERUM 3.9 MEQ/L (3.5-5.1); SODIUM LEVEL 138 MEQ/L (136-145); TOTAL PROTEIN 6.8 GM/DL (6.4-8.2)
== END ==
LOC: M PLAIMG 11:56
PROVIDERS: ATTEND Physician Assistant Medical
DX: L40.9 Psoriasis, unspecified (principal); J06.9 Acute upper respiratory infection, unspecified

== ENCOUNTER 2021-09-19 11:22 | Outpatient (CLI) | payer OTHER ==
[~2021-09-19] VITALS: Ht 165.1 cm; Wt 79.0 kg
[~2021-09-19 11:22] MED LIST changes: +ALBUTEROL 90 MCG/ACT 8GM HFA INHALER INH PRN; +ALBUTEROL SULFATE 2.5 MG/0.5 ML INH NEB SOLN INH PRN; +DOXY-443 PO; -DOXY1CAP62 PO; +EPINEPHrine INJ 1 MG/ML 1ML AMP IM PRN; +diphenhydrAMINE 50MG/ML VIAL (J1200) IV PRN; +methylPREDNISolone 125MG 2ML VIAL IV PRN
[2021-09-19] MEDS ORDERED: CASIRIVIMAB (REGN10933) 600 MG, IMDEVIMAB (REGN10987) 600 MG in NS 250 ML IV ONE (11:35)
[2021-09-19 12:30] VITALS: BP 99/64
[2021-09-19 13:00] VITALS: BP 99/54
[2021-09-19 13:30] VITALS: BP 97/55
[2021-09-19 14:30] VITALS: BP 97/54
== END 2021-09-19 14:30 | disposition home or self-care (01) ==
LOC: M OPCLI4PR 11:22
PROVIDERS: ATTEND Physician Assistant Medical
DX: U07.1 COVID-19 (principal); Z88.5 Allergy status to narcotic agent; Z88.6 Allergy status to analgesic agent

== ENCOUNTER → 2021-10-31 | Outpatient (CLI) | payer OTHER ==
[~2021-10-31] MED LIST changes: -ALBUTEROL 90 MCG/ACT 8GM HFA INHALER INH PRN; -ALBUTEROL SULFATE 2.5 MG/0.5 ML INH NEB SOLN INH PRN; -EPINEPHrine INJ 1 MG/ML 1ML AMP IM PRN; -diphenhydrAMINE 50MG/ML VIAL (J1200) IV PRN; -methylPREDNISolone 125MG 2ML VIAL IV PRN
[2021-10-31 18:18] LABS: BASO % 0.6 % (0.0-1.0); EOS # 0.1 10^3/uL (0.0-0.5); EOS % 2.2 % (0.0-3.0); HEMOGLOBIN 11.9 g/dl (12.0-15.5); LYMPH # 2.5 10^3/uL (1.5-5.0); LYMPH % 39.1 % (24.0-44.0); MEAN CORPUSCULAR HEMOGLOBIN 31.2 pg (27.0-33.0); MEAN CORPUSCULAR HGB CONC 32.2 g/dl (32.0-36.5); MEAN CORPUSCULAR VOLUME 97.1 fl (80.0-96.0); MONO # 0.3 10^3/uL (0.0-0.8); MONO % 5.1 % (2.0-8.0); NEUTROPHILS # 3.4 10^3/uL (1.5-8.5); NEUTROPHILS % 52.8 % (36.0-66.0); PLATELET COUNT, AUTOMATED 379 10^3/uL (150-450); RED BLOOD COUNT 3.81 10^6/uL (4.00-5.40); WHITE BLOOD COUNT 6.5 10^3/uL (4.0-10.0)
[2021-10-31 18:32] LABS: ALBUMIN 3.3 GM/DL (3.2-5.2); ALT/SGPT 17 U/L (12-78); BILIRUBIN,TOTAL 0.2 MG/DL (0.2-1.0); BLOOD UREA NITROGEN 9 MG/DL (7-18); CALCIUM LEVEL 8.5 MG/DL (8.5-10.1); CARBON DIOXIDE LEVEL 28 MEQ/L (21-32); CHLORIDE LEVEL 106 MEQ/L (98-107); CREATININE FOR GFR 0.68 MG/DL (0.55-1.30); GLOMERULAR FILTRATION RATE > 60.0 (>60); GLUCOSE, FASTING 82 MG/DL (70-100); POTASSIUM SERUM 4.6 MEQ/L (3.5-5.1); SODIUM LEVEL 139 MEQ/L (136-145); TOTAL PROTEIN 6.4 GM/DL (6.4-8.2)
[2021-10-31 18:53] LABS: HEPATITIS B SURFACE ANTIGEN NEGATIVE (NEGATIVE)
[2021-10-31 19:20] LABS: HEPATITIS C VIRUS ABY INDEX 0.1 INDEX (<0.8)
[2021-10-31 19:21] LABS: HEPATITIS B CORE ANTIBODY IGM NEGATIVE (NEGATIVE); HIV 1&2 SCREEN CENTAUR NEGATIVE (NEGATIVE)
== END ==
LOC: M PLALAB 14:56
PROVIDERS: ATTEND Physician Assistant
DX: L40.9 Psoriasis, unspecified (principal)

== ENCOUNTER → 2022-03-01 | Outpatient (REF) | payer OTHER ==
[~2022-03-01] MED LIST changes: -DICY20TA11; +DICY20TA20; -OMEP-221; +OMEP40CA5
[2022-03-01 20:22] LABS: GC DNA AMPLIFICATION NEGATIVE (NEGATIVE)
== END ==
LOC: M LAB REF 16:44
PROVIDERS: ATTEND Physician Assistant
DX: R30.0 Dysuria (principal)

== ENCOUNTER → 2022-05-23 | Outpatient (CLI) | payer OTHER ==
[2022-05-23 16:02] LABS: BASO % 0.2 % (0.0-1.0); HEMATOCRIT 32.7 % (36.0-47.0); LYMPH # 0.7 10^3/uL (1.5-5.0); LYMPH % 12.9 % (24.0-44.0); MEAN CORPUSCULAR HEMOGLOBIN 32.1 pg (27.0-33.0); MEAN CORPUSCULAR HGB CONC 33.6 g/dl (32.0-36.5); MEAN CORPUSCULAR VOLUME 95.3 fl (80.0-96.0); MONO # 0.1 10^3/uL (0.0-0.8); MONO % 2.4 % (2.0-8.0); NEUTROPHILS # 4.6 10^3/uL (1.5-8.5); PLATELET COUNT, AUTOMATED 284 10^3/uL (150-450); RED BLOOD COUNT 3.43 10^6/uL (4.00-5.40); WHITE BLOOD COUNT 5.5 10^3/uL (4.0-10.0)
[2022-05-23 16:36] LABS: ERYTHROCYTE SEDIMENTATION RATE 7 mm/hr (0-20)
[2022-05-23 18:05] LABS: ALBUMIN 3.4 GM/DL (3.2-5.2); ALT/SGPT 14 U/L (12-78); BILIRUBIN,TOTAL 0.2 MG/DL (0.2-1.0); BLOOD UREA NITROGEN 11 MG/DL (7-18); CALCIUM LEVEL 8.6 MG/DL (8.5-10.1); CARBON DIOXIDE LEVEL 22 MEQ/L (21-32); CHLORIDE LEVEL 111 MEQ/L (98-107); CREATININE FOR GFR 0.75 MG/DL (0.55-1.30); FERRITIN 27 NG/ML (8-252); GLOMERULAR FILTRATION RATE > 60.0 (>60); GLUCOSE, FASTING 118 MG/DL (70-100); IRON (FE) 58 UG/DL (50-170); LIPASE 108 U/L (73-393); PERCENT SATURATION 27.9 % (13.2-45.0); POTASSIUM SERUM 3.3 MEQ/L (3.5-5.1); SODIUM LEVEL 141 MEQ/L (136-145); TOTAL IRON BINDING CAPACITY 208 UG/DL (250-450); TOTAL PROTEIN 5.9 GM/DL (6.4-8.2)
== END ==
LOC: M PLALAB 13:04
PROVIDERS: ATTEND Physician Assistant Medical
DX: R19.7 Diarrhea, unspecified (principal); E61.1 Iron deficiency

== ENCOUNTER → 2022-06-07 | Outpatient (CLI) | payer OTHER ==
[2022-06-07 15:37] LABS: BASO % 0.7 % (0.0-1.0); EOS # 0.1 10^3/uL (0.0-0.5); EOS % 1.8 % (0.0-3.0); HEMATOCRIT 33.9 % (36.0-47.0); HEMOGLOBIN 10.8 g/dl (12.0-15.5); LYMPH # 2.3 10^3/uL (1.5-5.0); LYMPH % 41.3 % (24.0-44.0); MEAN CORPUSCULAR HGB CONC 31.9 g/dl (32.0-36.5); MEAN CORPUSCULAR VOLUME 97.4 fl (80.0-96.0); MONO # 0.4 10^3/uL (0.0-0.8); MONO % 6.6 % (2.0-8.0); NEUTROPHILS # 2.8 10^3/uL (1.5-8.5); NEUTROPHILS % 49.2 % (36.0-66.0); PLATELET COUNT, AUTOMATED 269 10^3/uL (150-450); RED BLOOD COUNT 3.48 10^6/uL (4.00-5.40); WHITE BLOOD COUNT 5.6 10^3/uL (4.0-10.0)
[2022-06-07 15:59] LABS: ALBUMIN 2.8 GM/DL (3.2-5.2); ALT/SGPT 16 U/L (12-78); BILIRUBIN,TOTAL 0.3 MG/DL (0.2-1.0); BLOOD UREA NITROGEN 11 MG/DL (7-18); CARBON DIOXIDE LEVEL 28 MEQ/L (21-32); CHLORIDE LEVEL 109 MEQ/L (98-107); CREATININE FOR GFR 0.54 MG/DL (0.55-1.30); GLOMERULAR FILTRATION RATE > 60.0 (>60); GLUCOSE, FASTING 78 MG/DL (70-100); MAGNESIUM LEVEL 1.6 MG/DL (1.8-2.4); POTASSIUM SERUM 4.4 MEQ/L (3.5-5.1); SODIUM LEVEL 138 MEQ/L (136-145); TOTAL PROTEIN 5.2 GM/DL (6.4-8.2)
[2022-06-07 16:29] LABS: ERYTHROCYTE SEDIMENTATION RATE 5 mm/hr (0-20)
== END ==
LOC: M PLALAB 13:29
PROVIDERS: ATTEND Physician Assistant Medical
DX: R60.0 Localized edema (principal)

== ENCOUNTER → 2022-07-05 | Outpatient (CLI) | payer OTHER ==
[2022-07-05 10:49] LABS: HEMATOCRIT 36.7 % (36.0-47.0); HEMOGLOBIN 11.9 g/dl (12.0-15.5); MEAN CORPUSCULAR HEMOGLOBIN 31.9 pg (27.0-33.0); MEAN CORPUSCULAR HGB CONC 32.4 g/dl (32.0-36.5); MEAN CORPUSCULAR VOLUME 98.4 fl (80.0-96.0); PLATELET COUNT, AUTOMATED 315 10^3/uL (150-450); RED BLOOD COUNT 3.73 10^6/uL (4.00-5.40); WHITE BLOOD COUNT 5.5 10^3/uL (4.0-10.0)
[2022-07-05 11:14] LABS: ATYPICAL LYMPH 2 % (0-5); BASOPHILS 2 % (0-1); LYMPHOCYTES 43 % (16-44); MONOCYTES 8 % (0-5); NEUTROPHILS 45 % (28-66)
[2022-07-05 11:15] LABS: OVALOCYTES 1+; PLATELET ESTIMATE NORMAL (NORMAL)
[2022-07-05 11:17] LABS: ERYTHROCYTE SEDIMENTATION RATE 10 mm/hr (0-20)
[2022-07-05 11:40] LABS: ALBUMIN 3.4 GM/DL (3.2-5.2); ALT/SGPT 14 U/L (12-78); BILIRUBIN,TOTAL 0.3 MG/DL (0.2-1.0); BLOOD UREA NITROGEN 9 MG/DL (7-18); C REACTIVE PROTEIN QUANTITATIV 0.43 MG/DL (0.00-0.30); CALCIUM LEVEL 8.3 MG/DL (8.5-10.1); CARBON DIOXIDE LEVEL 25 MEQ/L (21-32); CHLORIDE LEVEL 110 MEQ/L (98-107); CREATININE FOR GFR 0.64 MG/DL (0.55-1.30); GLOMERULAR FILTRATION RATE > 60.0 (>58); GLUCOSE, FASTING 82 MG/DL (70-100); MAGNESIUM LEVEL 1.7 MG/DL (1.8-2.4); POTASSIUM SERUM 3.4 MEQ/L (3.5-5.1); SODIUM LEVEL 141 MEQ/L (136-145); TOTAL PROTEIN 5.9 GM/DL (6.4-8.2)
== END ==
LOC: M PLAIMG 07:59
PROVIDERS: ATTEND Physician Assistant Medical
DX: E43 Unspecified severe protein-calorie malnutrition (principal); D68.62 Lupus anticoagulant syndrome; Z86.69 Personal history of other diseases of the nervous system and sense organs

== ENCOUNTER → 2022-07-17 | Outpatient (CLI) | payer OTHER ==
[~2022-07-17] MED LIST changes: +AMIT8CAP4 PO; +ENOX150I3 SQ; +HYDR-3719 PO; -WARF-18; +WARF-18 PO
== END ==
LOC: M LABSMTC 11:18
PROVIDERS: ATTEND Anesthesiology
DX: Z01.812 Encounter for preprocedural laboratory examination (principal); Z20.822 Contact with and (suspected) exposure to COVID-19

== ENCOUNTER 2022-07-21 10:30 | Day surgery (SDC) | payer OTHER ==
[~2022-07-21] VITALS: Ht 165.1 cm; Wt 68.9 kg
[~2022-07-21 10:30] MED LIST changes: +NS 1,000 ML IV ONE
[2022-07-21] MEDS ORDERED: fentaNYL 100 MCG/2 ML INJECTION As Ordered ONE (12:49)
[2022-07-21] MEDS ORDERED: propofoL 200 MG/20 ML VIAL As Ordered ONE ×2 (12:50→13:04)
[2022-07-21] MEDS ORDERED: LIDOCAINE 2% 100MG/5ML SDV (FOR ANES.) As Ordered ONE (12:50)
[2022-07-21 14:11] VITALS: BP 110/64
== END 2022-07-21 14:19 | disposition home or self-care (01) ==
LOC: M OPP 10:30
PROVIDERS: ATTEND Internal Medicine Gastroenterology
DX: K63.5 Polyp of colon (principal); K57.30 Diverticulosis of large intestine without perforation or abscess without bleeding; K64.4 Residual hemorrhoidal skin tags; K64.8 Other hemorrhoids; K63.89 Other specified diseases of intestine; K92.1 Melena; K29.70 Gastritis, unspecified, without bleeding; Z79.01 Long term (current) use of anticoagulants; Z79.891 Long term (current) use of opiate analgesic; Z79.899 Other long term (current) drug therapy; Z88.5 Allergy status to narcotic agent; Z88.6 Allergy status to analgesic agent; Z88.8 Allergy status to other drugs, medicaments and biological substances; M32.9 Systemic lupus erythematosus, unspecified; M79.7 Fibromyalgia; F17.200 Nicotine dependence, unspecified, uncomplicated; Z86.718 Personal history of other venous thrombosis and embolism; Z86.14 Personal history of Methicillin resistant Staphylococcus aureus infection
CPT/HCPCS: 43239; 45385; 88305; J3010

== ENCOUNTER → 2022-09-12 | Outpatient (CLI) | payer OTHER ==
[~2022-09-12] MED LIST changes: -NS 1,000 ML IV ONE
== END ==
LOC: M PLAIMG 11:35
PROVIDERS: ATTEND Physician Assistant Medical
DX: M47.816 Spondylosis without myelopathy or radiculopathy, lumbar region (principal)

== ENCOUNTER → 2022-10-02 | Outpatient (CLI) | payer OTHER | LOC: M RAD 08:33 | PROVIDERS: ATTEND Physician Assistant Medical | DX: M47.816 Spondylosis without myelopathy or radiculopathy, lumbar region (principal) ==

== ENCOUNTER → 2022-10-17 | Outpatient (REF) | payer OTHER | LOC: M SFHCPLAZ 11:41 | PROVIDERS: ATTEND Physician Assistant Medical | DX: R19.7 Diarrhea, unspecified (principal) ==

== ENCOUNTER → 2022-10-19 | Outpatient (CLI) | payer OTHER ==
[2022-10-19 18:12] LABS: BASO % 0.2 % (0.0-1.0); EOS # 0.2 10^3/uL (0.0-0.5); HEMATOCRIT 39.5 % (36.0-47.0); HEMOGLOBIN 13.1 g/dl (12.0-15.5); LYMPH # 1.7 10^3/uL (1.5-5.0); LYMPH % 20.2 % (24.0-44.0); MEAN CORPUSCULAR HEMOGLOBIN 30.8 pg (27.0-33.0); MEAN CORPUSCULAR HGB CONC 33.2 g/dl (32.0-36.5); MEAN CORPUSCULAR VOLUME 92.9 fl (80.0-96.0); MONO # 0.4 10^3/uL (0.0-0.8); MONO % 4.9 % (2.0-8.0); NEUTROPHILS % 72.2 % (36.0-66.0); PLATELET COUNT, AUTOMATED 351 10^3/uL (150-450); RED BLOOD COUNT 4.25 10^6/uL (4.00-5.40); WHITE BLOOD COUNT 8.3 10^3/uL (4.0-10.0)
[2022-10-19 18:37] LABS: ALBUMIN 3.7 G/DL (3.2-5.2); ALKALINE PHOSPHATASE 83 U/L (46-116); ALT/SGPT 16 U/L (7.0-40); AST/SGOT 20 U/L (<34); BILIRUBIN,TOTAL 0.5 MG/DL (0.3-1.2); BLOOD UREA NITROGEN 21 MG/DL (9-23); CALCIUM LEVEL 8.1 MG/DL (8.5-10.1); CARBON DIOXIDE LEVEL 22 MMOL/L (20-31); CHLORIDE LEVEL 106 MMOL/L (98-107); CREATININE FOR GFR 0.85 MG/DL (0.55-1.30); GLOMERULAR FILTRATION RATE > 60.0 (>58); GLUCOSE, FASTING 96 MG/DL (60-100); POTASSIUM SERUM 3.5 MMOL/L (3.5-5.1); SODIUM LEVEL 139 MMOL/L (136-145); TOTAL PROTEIN 6.2 G/DL (5.7-8.2)
== END ==
LOC: M PLALAB 15:36
PROVIDERS: ATTEND Physician Assistant Medical
DX: A04.72 Enterocolitis due to Clostridium difficile, not specified as recurrent (principal)

== ENCOUNTER → 2022-11-14 | Outpatient (CLI) | payer OTHER ==
[2022-11-14 14:03] LABS: ALBUMIN 3.3 G/DL (3.2-5.2); ALKALINE PHOSPHATASE 70 U/L (46-116); ALT/SGPT 14 U/L (7.0-40); AST/SGOT 15 U/L (<34); BILIRUBIN,TOTAL 0.2 MG/DL (0.3-1.2); BLOOD UREA NITROGEN 10 MG/DL (9-23); CALCIUM LEVEL 8.3 MG/DL (8.5-10.1); CARBON DIOXIDE LEVEL 26 MMOL/L (20-31); CHLORIDE LEVEL 108 MMOL/L (98-107); CREATININE FOR GFR 0.72 MG/DL (0.55-1.30); GLOMERULAR FILTRATION RATE > 60.0 (>58); GLUCOSE, FASTING 97 MG/DL (60-100); POTASSIUM SERUM 4.1 MMOL/L (3.5-5.1); SODIUM LEVEL 139 MMOL/L (136-145); TOTAL PROTEIN 5.8 G/DL (5.7-8.2)
== END ==
LOC: M PLALAB 10:54
PROVIDERS: ATTEND Physician Assistant Medical
DX: R19.7 Diarrhea, unspecified (principal)

== ENCOUNTER → 2022-12-12 | Outpatient (CLI) | payer OTHER ==
[~2022-12-12] MED LIST changes: +LIDO15SO4 SSP; -LIDO2SOL17 SSP
[2022-12-12 15:47] LABS: INR 1.54; PROTHROMBIN TIME 18.8 SECONDS (12.5-14.5)
== END ==
LOC: M PLALAB 14:14
PROVIDERS: ATTEND Family Medicine
DX: Z51.81 Encounter for therapeutic drug level monitoring (principal); R19.7 Diarrhea, unspecified

== ENCOUNTER → 2022-12-16 | Outpatient (REF) | payer OTHER | LOC: M LAB REF 20:10 | PROVIDERS: ATTEND Physician Assistant Medical | DX: A04.72 Enterocolitis due to Clostridium difficile, not specified as recurrent (principal) ==

== ENCOUNTER → 2023-02-08 | Outpatient (CLI) | payer OTHER ==
[~2023-02-08] MED LIST changes: +LIDO15SO SSP; -LIDO15SO4 SSP
== END ==
LOC: M PLALAB 16:28
PROVIDERS: ATTEND Physician Assistant Medical
DX: R53.1 Weakness (principal)

== ENCOUNTER → 2023-02-08 | Outpatient (CLI) | payer OTHER | LOC: M PLARAD 14:54 | PROVIDERS: ATTEND Physician Assistant | DX: R51.9 Headache, unspecified (principal); R42 Dizziness and giddiness ==

== ENCOUNTER → 2023-02-13 | Outpatient (CLI) | payer OTHER ==
[2023-02-13 15:41] LABS: BASO % 0.7 % (0.0-1.0); EOS # 0.2 10^3/uL (0.0-0.5); EOS % 4.5 % (0.0-3.0); HEMATOCRIT 34.8 % (36.0-47.0); HEMOGLOBIN 11.4 g/dl (12.0-15.5); LYMPH # 2.5 10^3/uL (1.5-5.0); LYMPH % 55.8 % (24.0-44.0); MEAN CORPUSCULAR HEMOGLOBIN 31.3 pg (27.0-33.0); MEAN CORPUSCULAR HGB CONC 32.8 g/dl (32.0-36.5); MEAN CORPUSCULAR VOLUME 95.6 fl (80.0-96.0); MONO # 0.3 10^3/uL (0.0-0.8); MONO % 6.6 % (2.0-8.0); NEUTROPHILS # 1.4 10^3/uL (1.5-8.5); NEUTROPHILS % 32.2 % (36.0-66.0); PLATELET COUNT, AUTOMATED 322 10^3/uL (150-450); RED BLOOD COUNT 3.64 10^6/uL (4.00-5.40); WHITE BLOOD COUNT 4.4 10^3/uL (4.0-10.0)
[2023-02-13 15:53] LABS: C REACTIVE PROTEIN QUANTITATIV < 0.40 MG/DL (<1.0)
[2023-02-13 15:56] LABS: RHEUMATOID FACTOR QUANT 7.3 IU/ML (<14)
[2023-02-13 15:57] LABS: FREE T4 0.79 NG/DL (0.89-1.76)
[2023-02-13 15:58] LABS: THYROID STIMULATING HORMONE 2.462 uIU/ML (0.55-4.78)
[2023-02-13 16:19] LABS: ERYTHROCYTE SEDIMENTATION RATE 12 mm/hr (0-20)
[2023-02-15 21:07] LABS: ANA (HEP2) Negative (.); CYCLIC CITRULLINATED PEPTIDE 5 units (0-19)
== END ==
LOC: M PLALAB 13:16
PROVIDERS: ATTEND Physician Assistant Medical
DX: R53.1 Weakness (principal)

== ENCOUNTER → 2023-03-14 | Outpatient (REF) | payer OTHER | LOC: M SFHCPLAZ 11:52 | PROVIDERS: ATTEND Physician Assistant Medical | DX: Z53.9 Procedure and treatment not carried out, unspecified reason (principal) ==

== ENCOUNTER → 2023-03-21 | Outpatient (CLI) | payer OTHER ==
[2023-03-22 23:12] LABS: ANA (HEP2) Negative (.)
== END ==
LOC: M PLALAB 11:47
PROVIDERS: ATTEND Physician Assistant Medical
DX: R21 Rash and other nonspecific skin eruption (principal)

== ENCOUNTER → 2023-07-05 | Outpatient (REF) | payer OTHER ==
[~2023-07-05] MED LIST changes: +DICY-61 PO; -DICY10CA13 PO; -K-TA10TA2 PO; +POTA-165 PO
[2023-07-05 17:40] LABS: APPEARANCE, URINE HAZY (CLEAR); BACTERIA, URINE AUTO NEGATIVE (NEGATIVE); BILIRUBIN, URINE AUTO 1+ (NEGATIVE); BLOOD, URINE BLOOD 2+ (NEGATIVE); CALCIUM OXALATE CRYSTALS LARGE; COLOR, URINE AMBER (YELLOW); GLUCOSE, URINE (UA) AUTO NEGATIVE (NEGATIVE); KETONE, URINE AUTO TRACE mg/dL (NEGATIVE); LEUKOCYTE ESTERASE, URINE AUTO NEGATIVE (NEGATIVE); MUCUS, URINE SMALL (NEGATIVE); NITRITE, URINE AUTO NEGATIVE (NEGATIVE); PROTEIN, URINE AUTO 1+ mg/dL (NEGATIVE); RBC, URINE AUTO 70 /HPF (0-3); SPECIFIC GRAVITY URINE AUTO 1.033 (1.002-1.035); SQUAMOUS EPITHELIAL CELL UR AU 5 /HPF (0-6); WBC, URINE AUTO 2 /HPF (0-3)
== END ==
LOC: M SFHCPLAZ 16:53
PROVIDERS: ATTEND Physician Assistant Medical
DX: R82.998 Other abnormal findings in urine (principal)

== ENCOUNTER → 2023-08-02 | Outpatient (CLI) | payer OTHER ==
[2023-08-02 15:53] LABS: BASO % 0.6 % (0.0-1.0); EOS # 0.2 10^3/uL (0.0-0.5); HEMATOCRIT 35.6 % (36.0-47.0); HEMOGLOBIN 12.1 g/dl (12.0-15.5); LYMPH # 2.9 10^3/uL (1.5-5.0); LYMPH % 46.3 % (24.0-44.0); MEAN CORPUSCULAR HEMOGLOBIN 32.7 pg (27.0-33.0); MEAN CORPUSCULAR VOLUME 96.2 fl (80.0-96.0); MONO # 0.4 10^3/uL (0.0-0.8); MONO % 5.9 % (2.0-8.0); NEUTROPHILS # 2.8 10^3/uL (1.5-8.5); PLATELET COUNT, AUTOMATED 332 10^3/uL (150-450); WHITE BLOOD COUNT 6.3 10^3/uL (4.0-10.0)
[2023-08-02 16:46] LABS: INR 5.52
== END ==
LOC: M PLALAB 12:44
PROVIDERS: ATTEND Physician Assistant Medical
DX: Z51.81 Encounter for therapeutic drug level monitoring (principal)

== ENCOUNTER → 2023-08-09 | Outpatient (REF) | payer OTHER ==
[2023-08-09 18:59] LABS: APPEARANCE, URINE CLEAR (CLEAR); BACTERIA, URINE AUTO NEGATIVE (NEGATIVE); BILIRUBIN, URINE AUTO NEGATIVE (NEGATIVE); BLOOD, URINE BLOOD 2+ (NEGATIVE); COLOR, URINE YELLOW (YELLOW); GLUCOSE, URINE (UA) AUTO NEGATIVE (NEGATIVE); KETONE, URINE AUTO NEGATIVE (NEGATIVE); LEUKOCYTE ESTERASE, URINE AUTO NEGATIVE (NEGATIVE); MUCUS, URINE SMALL (NEGATIVE); NITRITE, URINE AUTO NEGATIVE (NEGATIVE); PROTEIN, URINE AUTO NEGATIVE (NEGATIVE); RBC, URINE AUTO 46 /HPF (0-3); SPECIFIC GRAVITY URINE AUTO 1.023 (1.002-1.035); SQUAMOUS EPITHELIAL CELL UR AU 1 /HPF (0-6); WBC, URINE AUTO 0 /HPF (0-3)
== END ==
LOC: M SFHCPLAZ 17:15
PROVIDERS: ATTEND Physician Assistant Medical
DX: R82.998 Other abnormal findings in urine (principal)

== ENCOUNTER → 2023-08-21 | Outpatient (CLI) | payer OTHER | LOC: M PLAIMG 13:20 | PROVIDERS: ATTEND Physician Assistant Medical | DX: M47.816 Spondylosis without myelopathy or radiculopathy, lumbar region (principal) ==

== ENCOUNTER → 2023-08-22 | Outpatient (CLI) | payer OTHER | LOC: M PLAIMG 08:49 | PROVIDERS: ATTEND Physician Assistant Medical | DX: R31.29 Other microscopic hematuria (principal); M43.17 Spondylolisthesis, lumbosacral region ==

== ENCOUNTER → 2023-10-03 | Outpatient (REF) | payer OTHER ==
[2023-10-03 16:07] LABS: BASO % 0.4 % (0.0-1.0); EOS # 0.1 10^3/uL (0.0-0.5); EOS % 1.3 % (0.0-3.0); HEMATOCRIT 34.4 % (36.0-47.0); HEMOGLOBIN 11.2 g/dl (12.0-15.5); LYMPH # 2.3 10^3/uL (1.5-5.0); MEAN CORPUSCULAR HEMOGLOBIN 32.7 pg (27.0-33.0); MEAN CORPUSCULAR HGB CONC 32.6 g/dl (32.0-36.5); MEAN CORPUSCULAR VOLUME 100.6 fl (80.0-96.0); MONO # 0.4 10^3/uL (0.0-0.8); MONO % 3.9 % (2.0-8.0); NEUTROPHILS # 6.3 10^3/uL (1.5-8.5); NEUTROPHILS % 69.2 % (36.0-66.0); PLATELET COUNT, AUTOMATED 281 10^3/uL (150-450); RED BLOOD COUNT 3.42 10^6/uL (4.00-5.40); WHITE BLOOD COUNT 9.1 10^3/uL (4.0-10.0)
[2023-10-03 16:19] LABS: BLOOD UREA NITROGEN 13 MG/DL (9-23); CARBON DIOXIDE LEVEL 25 MMOL/L (20-31); CHLORIDE LEVEL 108 MMOL/L (98-107); CREATININE FOR GFR 0.62 MG/DL (0.55-1.30); GLOMERULAR FILTRATION RATE > 60.0 (>58); GLUCOSE, FASTING 81 MG/DL (60-100); IRON (FE) 49 UG/DL (50-170); POTASSIUM SERUM 4.2 MMOL/L (3.5-5.1); SODIUM LEVEL 139 MMOL/L (136-145)
[2023-10-03 16:21] LABS: FERRITIN 12.7 NG/ML (7.3-270.7)
== END ==
LOC: M LABDRAWP 15:31
PROVIDERS: ATTEND Physician Assistant Medical
DX: K92.1 Melena (principal); K51.811 Other ulcerative colitis with rectal bleeding

== ENCOUNTER → 2023-10-04 | Outpatient (CLI) | payer OTHER ==
[~2023-10-04] MED LIST changes: +GASTROGRAFIN SOLUTION 30ML As Ordered ONE; +ISOVUE-370 76% 100ML VIAL As Ordered ONE
== END ==
LOC: M RAD 09:36
PROVIDERS: ATTEND Physician Assistant Medical
DX: Z79.01 Long term (current) use of anticoagulants (principal); K92.1 Melena; K51.811 Other ulcerative colitis with rectal bleeding
CPT/HCPCS: 74177; Q9963; Q9967

== ENCOUNTER → 2023-10-11 | Outpatient (CLI) | payer OTHER ==
[~2023-10-11] MED LIST changes: -GASTROGRAFIN SOLUTION 30ML As Ordered ONE; -ISOVUE-370 76% 100ML VIAL As Ordered ONE
== END ==
LOC: M PLARAD 10:54
PROVIDERS: ATTEND Physician Assistant Medical
DX: M47.816 Spondylosis without myelopathy or radiculopathy, lumbar region (principal)

== ENCOUNTER → 2023-10-24 | Outpatient (CLI) | payer OTHER | LOC: M PLAIMG 12:24 | PROVIDERS: ATTEND Physician Assistant Medical | DX: M25.473 Effusion, unspecified ankle (principal); R60.0 Localized edema ==

== ENCOUNTER → 2023-10-26 | Outpatient (CLI) | payer OTHER | LOC: M PLARAD 08:55 | PROVIDERS: ATTEND Physician Assistant Medical | DX: G93.5 Compression of brain (principal); G43.511 Persistent migraine aura without cerebral infarction, intractable, with status migrainosus; M48.02 Spinal stenosis, cervical region; M50.30 Other cervical disc degeneration, unspecified cervical region ==

== ENCOUNTER → 2023-11-21 | Outpatient (CLI) | payer OTHER ==
[~2023-11-21] MED LIST changes: +ACETAMINOPHEN 650MG PO PRIOR TO INFUSION PO ONE; +ALBUTEROL SULFATE 2.5MG/0.5ML INH NEB SOLN INH PRN; +EPINEPHrine INJ 1 MG/ML 1ML AMP IM PRN; +IRON SUCROSE 225 MG in NS 213.75 ML IV ONE; +IRON SUCROSE 25 MG in NS 23.75 ML IV ONE; +NS 1,000 ML IV SCH; +diphenhydrAMINE 25MG PO PRIOR TO INFUSION PO ONE; +diphenhydrAMINE 50MG/ML VIAL IV PRN; +methylPREDNISolone 125MG 2ML VIAL IV PRN
== END ==
LOC: M INFU 10:43
PROVIDERS: ATTEND Physician Assistant Medical
DX: D50.9 Iron deficiency anemia, unspecified (principal); Z88.5 Allergy status to narcotic agent; Z88.8 Allergy status to other drugs, medicaments and biological substances

== ENCOUNTER → 2023-11-27 | Outpatient (CLI) | payer OTHER ==
[~2023-11-27] MED LIST changes: -ACETAMINOPHEN 650MG PO PRIOR TO INFUSION PO ONE; -ALBUTEROL SULFATE 2.5MG/0.5ML INH NEB SOLN INH PRN; -EPINEPHrine INJ 1 MG/ML 1ML AMP IM PRN; -IRON SUCROSE 225 MG in NS 213.75 ML IV ONE; -IRON SUCROSE 25 MG in NS 23.75 ML IV ONE; -NS 1,000 ML IV SCH; -diphenhydrAMINE 25MG PO PRIOR TO INFUSION PO ONE; -diphenhydrAMINE 50MG/ML VIAL IV PRN; -methylPREDNISolone 125MG 2ML VIAL IV PRN
== END ==
LOC: M PAIN 13:00
PROVIDERS: ATTEND Nurse Practitioner Family
DX: M79.18 Myalgia, other site (principal); M51.16 Intervertebral disc disorders with radiculopathy, lumbar region; G89.29 Other chronic pain; M47.812 Spondylosis without myelopathy or radiculopathy, cervical region; M47.816 Spondylosis without myelopathy or radiculopathy, lumbar region; J45.20 Mild intermittent asthma, uncomplicated; F33.9 Major depressive disorder, recurrent, unspecified; F43.10 Post-traumatic stress disorder, unspecified; F41.0 Panic disorder [episodic paroxysmal anxiety]; K59.09 Other constipation; K21.9 Gastro-esophageal reflux disease without esophagitis; F17.210 Nicotine dependence, cigarettes, uncomplicated; Z79.01 Long term (current) use of anticoagulants; Z86.711 Personal history of pulmonary embolism; Z79.891 Long term (current) use of opiate analgesic; Z79.899 Other long term (current) drug therapy; Z88.5 Allergy status to narcotic agent; Z88.8 Allergy status to other drugs, medicaments and biological substances

== ENCOUNTER → 2023-12-10 | Outpatient (CLI) | payer OTHER | LOC: M WHC 10:15 | PROVIDERS: ATTEND Physician Assistant Medical | DX: Z12.31 Encounter for screening mammogram for malignant neoplasm of breast (principal); N63.21 Unspecified lump in the left breast, upper outer quadrant ==

== ENCOUNTER → 2023-12-10 | Outpatient (CLI) | payer OTHER | LOC: M PLALAB 11:11 | PROVIDERS: ATTEND Physician Assistant Medical | DX: K59.09 Other constipation (principal) ==

== ENCOUNTER 2023-12-13 09:35 | Outpatient (CLI) | payer OTHER ==
[~2023-12-13] VITALS: Ht 165.1 cm; Wt 66.8 kg
[~2023-12-13 09:35] MED LIST changes: +ACETAMINOPHEN 650MG PO PRIOR TO INFUSION PO ONE; +ALBUTEROL SULFATE 2.5MG/0.5ML INH NEB SOLN INH PRN; +EPINEPHrine INJ 1 MG/ML 1ML AMP IM PRN; +IRON SUCROSE 225 MG in NS 213.75 ML IV ONE; +IRON SUCROSE 25 MG in NS 23.75 ML IV ONE; +NS 1,000 ML IV SCH; +diphenhydrAMINE 25MG PO PRIOR TO INFUSION PO ONE; +diphenhydrAMINE 50MG/ML VIAL IV PRN; +methylPREDNISolone 125MG 2ML VIAL IV PRN
[2023-12-13 09:41] VITALS: BP 120/63; O2SAT 100
[2023-12-13] MEDS: ACETAMINOPHEN 650MG PO PRIOR TO INFUSION PO ONE (09:45)
[2023-12-13] MEDS: diphenhydrAMINE 25MG PO PRIOR TO INFUSION PO ONE (09:45)
[2023-12-13] MEDS ORDERED: NS 1,000 ML IV SCH (09:45)
[2023-12-13] MEDS: IRON SUCROSE 25 MG in NS 23.75 ML IV ONE (10:08)
[2023-12-13] MEDS: IRON SUCROSE 225 MG in NS 213.75 ML IV ONE (11:02)
[2023-12-13 12:25] VITALS: BP 134/67; O2SAT 99
== END 2023-12-18 12:25 ==
LOC: M INFU 09:35
PROVIDERS: ATTEND Physician Assistant Medical
DX: D50.9 Iron deficiency anemia, unspecified (principal); Z88.5 Allergy status to narcotic agent; Z88.8 Allergy status to other drugs, medicaments and biological substances
CPT/HCPCS: 96365; J1756

== ENCOUNTER → 2023-12-18 | Outpatient (CLI) | payer OTHER ==
[~2023-12-18] MED LIST changes: -ACETAMINOPHEN 650MG PO PRIOR TO INFUSION PO ONE; -ALBUTEROL SULFATE 2.5MG/0.5ML INH NEB SOLN INH PRN; -EPINEPHrine INJ 1 MG/ML 1ML AMP IM PRN; -IRON SUCROSE 225 MG in NS 213.75 ML IV ONE; -IRON SUCROSE 25 MG in NS 23.75 ML IV ONE; -NS 1,000 ML IV SCH; -diphenhydrAMINE 25MG PO PRIOR TO INFUSION PO ONE; -diphenhydrAMINE 50MG/ML VIAL IV PRN; -methylPREDNISolone 125MG 2ML VIAL IV PRN
== END ==
LOC: M WHC 10:49
PROVIDERS: ATTEND Family Medicine
DX: Z12.31 Encounter for screening mammogram for malignant neoplasm of breast (principal)

== ENCOUNTER 2023-12-20 09:30 | Outpatient (CLI) | payer OTHER ==
[~2023-12-20] VITALS: Ht 165.1 cm; Wt 66.8 kg
[~2023-12-20 09:30] MED LIST changes: +ALBUTEROL SULFATE 2.5MG/0.5ML INH NEB SOLN INH PRN; +EPINEPHrine INJ 1 MG/ML 1ML AMP IM PRN; +NS 1,000 ML IV SCH; +diphenhydrAMINE 50MG/ML VIAL IV PRN; +methylPREDNISolone 125MG 2ML VIAL IV PRN
[2023-12-20 09:32] VITALS: BP 102/56; O2SAT 98
[2023-12-20] MEDS: diphenhydrAMINE 25MG PO PRIOR TO INFUSION PO ONE (10:03)
[2023-12-20] MEDS: IRON SUCROSE 250 MG in NS 237.5 ML IV ONE (10:05)
[2023-12-20] MEDS: ACETAMINOPHEN 650MG PO PRIOR TO INFUSION PO ONE (10:05)
[2023-12-20 11:45] VITALS: BP 112/66; O2SAT 99
== END 2023-12-20 11:45 ==
LOC: M INFU 09:30
PROVIDERS: ATTEND Physician Assistant Medical
DX: D50.9 Iron deficiency anemia, unspecified (principal); Z88.5 Allergy status to narcotic agent; Z88.8 Allergy status to other drugs, medicaments and biological substances
CPT/HCPCS: 96365; J1756

== ENCOUNTER 2023-12-28 09:44 | Outpatient (CLI) | payer OTHER ==
[~2023-12-28] VITALS: Ht 165.1 cm; Wt 67.0 kg
[~2023-12-28 09:44] MED LIST changes: -NS 1,000 ML IV SCH
[2023-12-28] MEDS ORDERED: ACETAMINOPHEN TAB 650MG DOSE (2X325MG) PO ONE (10:00)
[2023-12-28] MEDS ORDERED: NS 1,000 ML IV SCH (10:00)
[2023-12-28] MEDS ORDERED: diphenhydrAMINE 25MG CAP PO ONE (10:00)
[2023-12-28 10:01] VITALS: BP 98/63; O2SAT 100
[2023-12-28] MEDS: IRON SUCROSE 250 MG in NS 237.5 ML IV ONE (10:11)
[2023-12-28 10:14] LABS: BASO # 0.1 10^3/uL (0.0-0.2); EOS # 0.1 10^3/uL (0.0-0.5); EOS % 1.7 % (0.0-3.0); HEMATOCRIT 35.5 % (36.0-47.0); HEMOGLOBIN 11.7 g/dl (12.0-15.5); LYMPH # 1.8 10^3/uL (1.5-5.0); LYMPH % 30.4 % (24.0-44.0); MEAN CORPUSCULAR HEMOGLOBIN 31.9 pg (27.0-33.0); MEAN CORPUSCULAR VOLUME 96.7 fl (80.0-96.0); MONO # 0.3 10^3/uL (0.0-0.8); MONO % 4.7 % (2.0-8.0); NEUTROPHILS # 3.7 10^3/uL (1.5-8.5); NEUTROPHILS % 61.9 % (36.0-66.0); PLATELET COUNT, AUTOMATED 302 10^3/uL (150-450); RED BLOOD COUNT 3.67 10^6/uL (4.00-5.40)
[2023-12-28 11:41] VITALS: BP 99/62; O2SAT 100
== END 2023-12-28 11:45 ==
LOC: M INFU 09:44
PROVIDERS: ATTEND Physician Assistant Medical
DX: D50.9 Iron deficiency anemia, unspecified (principal); Z88.5 Allergy status to narcotic agent; Z88.8 Allergy status to other drugs, medicaments and biological substances
CPT/HCPCS: 82728; 85025; 96365; J1756

== ENCOUNTER → 2024-01-07 | Outpatient (CLI) | payer OTHER ==
[~2024-01-07] MED LIST changes: -ALBUTEROL SULFATE 2.5MG/0.5ML INH NEB SOLN INH PRN; -EPINEPHrine INJ 1 MG/ML 1ML AMP IM PRN; +ILUM100S SC; +K-TA1TAB PO; -LIDO15SO SSP; +LIDO15SO8 SSP; +ONDA4TAB6 PO; +WARF-58 PO; -diphenhydrAMINE 50MG/ML VIAL IV PRN; -methylPREDNISolone 125MG 2ML VIAL IV PRN
[2024-01-07 13:52] LABS: BASO # 0.1 10^3/uL (0.0-0.2); BASO % 0.6 % (0.0-1.0); EOS # 0.2 10^3/uL (0.0-0.5); HEMATOCRIT 33.3 % (36.0-47.0); LYMPH % 22.5 % (24.0-44.0); MEAN CORPUSCULAR HEMOGLOBIN 32.4 pg (27.0-33.0); MEAN CORPUSCULAR VOLUME 98.2 fl (80.0-96.0); MONO # 0.3 10^3/uL (0.0-0.8); MONO % 3.6 % (2.0-8.0); NEUTROPHILS # 6.5 10^3/uL (1.5-8.5); NEUTROPHILS % 71.2 % (36.0-66.0); PLATELET COUNT, AUTOMATED 344 10^3/uL (150-450); RED BLOOD COUNT 3.39 10^6/uL (4.00-5.40); WHITE BLOOD COUNT 9.1 10^3/uL (4.0-10.0)
== END ==
LOC: M PLALAB 11:07
PROVIDERS: ATTEND Physician Assistant Medical
DX: D50.9 Iron deficiency anemia, unspecified (principal)

== ENCOUNTER → 2024-01-07 | Outpatient (CLI) | payer OTHER | LOC: M RAD 11:50 | PROVIDERS: ATTEND Surgery | DX: K59.00 Constipation, unspecified (principal); Z53.9 Procedure and treatment not carried out, unspecified reason ==

== ENCOUNTER → 2024-01-07 | Outpatient (CLI) | payer OTHER | LOC: M PLAIMG 11:05 | PROVIDERS: ATTEND Otolaryngology | DX: R22.1 Localized swelling, mass and lump, neck (principal) ==

== ENCOUNTER → 2024-01-18 | Outpatient (CLI) | payer OTHER ==
[~2024-01-18] MED LIST changes: +NORCO, ANEXSIA 5/325MG TABLET (HYDROcodone/ACETAMINOPHEN) As Ordered ONE; +TRIAMCINOLONE ACETONIDE SUSP 40MG/ML 1ML VIAL As Ordered ONE; +diazePAM 5MG TABLET As Ordered ONE
== END ==
LOC: M PAIN 12:45
PROVIDERS: ATTEND Anesthesiology
DX: M79.18 Myalgia, other site (principal); M47.812 Spondylosis without myelopathy or radiculopathy, cervical region; M47.816 Spondylosis without myelopathy or radiculopathy, lumbar region; G89.29 Other chronic pain; J45.20 Mild intermittent asthma, uncomplicated; F17.210 Nicotine dependence, cigarettes, uncomplicated; Z79.891 Long term (current) use of opiate analgesic; Z79.899 Other long term (current) drug therapy; Z79.01 Long term (current) use of anticoagulants; Z88.5 Allergy status to narcotic agent; Z88.8 Allergy status to other drugs, medicaments and biological substances
CPT/HCPCS: 20553; J0665; J3301

== ENCOUNTER → 2024-02-07 | Outpatient (CLI) | payer OTHER ==
[~2024-02-07] MED LIST changes: -NORCO, ANEXSIA 5/325MG TABLET (HYDROcodone/ACETAMINOPHEN) As Ordered ONE; -TRIAMCINOLONE ACETONIDE SUSP 40MG/ML 1ML VIAL As Ordered ONE; -diazePAM 5MG TABLET As Ordered ONE
== END ==
LOC: M RAD 13:09
PROVIDERS: ATTEND Physician Assistant Medical
DX: I83.893 Varicose veins of bilateral lower extremities with other complications (principal)

== ENCOUNTER → 2024-02-21 | Outpatient (CLI) | payer OTHER ==
[~2024-02-21] MED LIST changes: +ALBU2.5V10 INH; +BACL5TAB2 PO; +BISA5TAB15 PO; +BUPR-69 PO; +CHOL4PW PO; +DOXY-323 PO; -DOXY-443 PO; +EPIPENSY SC; +FAMO40TA3 PO; +FERR324T21 PO; -LORA-243; +LORA-243 PO; +MAGN400T2 PO; +MECL-136 PO; +MIRA3350 PO; +NORT25CA2 PO; +OMEP-406 PO; +OMEP40CA5 PO; +POTA-141 PO; +SPIR50TA4 PO; +TIZA10TA PO; +TIZA4CAP3 PO
== END ==
LOC: M PAIN 17:00
PROVIDERS: ATTEND Nurse Practitioner Family
DX: M79.18 Myalgia, other site (principal); M51.16 Intervertebral disc disorders with radiculopathy, lumbar region; G89.29 Other chronic pain; M47.812 Spondylosis without myelopathy or radiculopathy, cervical region; F33.9 Major depressive disorder, recurrent, unspecified; F41.0 Panic disorder [episodic paroxysmal anxiety]; F43.12 Post-traumatic stress disorder, chronic; J45.20 Mild intermittent asthma, uncomplicated; K59.09 Other constipation; K21.9 Gastro-esophageal reflux disease without esophagitis; M47.816 Spondylosis without myelopathy or radiculopathy, lumbar region; F17.210 Nicotine dependence, cigarettes, uncomplicated; Z79.01 Long term (current) use of anticoagulants; Z79.891 Long term (current) use of opiate analgesic; Z79.899 Other long term (current) drug therapy; Z88.1 Allergy status to other antibiotic agents; Z88.5 Allergy status to narcotic agent; Z88.8 Allergy status to other drugs, medicaments and biological substances

== ENCOUNTER 2024-03-03 10:03 | Inpatient (IN) | payer OTHER ==
[~2024-03-03] VITALS: Ht 165.1 cm; Wt 64.6 kg
[~2024-03-03 10:03] MED LIST changes: -ALBU2.5V10 INH; -BACL5TAB2 PO; -BISA5TAB15 PO; -BUPR-69 PO; -CHOL4PW PO; -EPIPENSY SC; -FAMO40TA3 PO; -FERR324T21 PO; -MAGN400T2 PO; -MECL-136 PO; -MIRA3350 PO; -NORT25CA2 PO; -OMEP-406 PO; -OMEP40CA5 PO; -POTA-141 PO; -SPIR50TA4 PO; -TIZA10TA PO; -TIZA4CAP3 PO
[2024-03-03] MEDS ORDERED: DICY-61 PO (10:23)
[2024-03-03] MEDS ORDERED: POTA-141 PO (10:23)
[2024-03-03] MEDS ORDERED: BUPR-69 PO (10:23)
[2024-03-03] MEDS ORDERED: OMEP-406 PO (10:23)
[2024-03-03 10:38] LABS: BASO % 0.2 % (0.0-1.0); EOS # 0.1 10^3/uL (0.0-0.5); EOS % 0.7 % (0.0-3.0); HEMATOCRIT 37.2 % (36.0-47.0); HEMOGLOBIN 12.5 g/dl (12.0-15.5); LYMPH # 1.7 10^3/uL (1.5-5.0); LYMPH % 12.2 % (24.0-44.0); MEAN CORPUSCULAR HEMOGLOBIN 32.3 pg (27.0-33.0); MEAN CORPUSCULAR HGB CONC 33.6 g/dl (32.0-36.5); MEAN CORPUSCULAR VOLUME 96.1 fl (80.0-96.0); MONO # 0.5 10^3/uL (0.0-0.8); MONO % 3.3 % (2.0-8.0); NEUTROPHILS # 11.6 10^3/uL (1.5-8.5); NEUTROPHILS % 83.2 % (36.0-66.0); PLATELET COUNT, AUTOMATED 321 10^3/uL (150-450); RED BLOOD COUNT 3.87 10^6/uL (4.00-5.40); WHITE BLOOD COUNT 13.9 10^3/uL (4.0-10.0)
[2024-03-03] MEDS ORDERED: MECL-136 PO (10:46)
[2024-03-03] MEDS ORDERED: SPIR50TA4 PO (10:46)
[2024-03-03] MEDS ORDERED: EPIPENSY SC (10:46)
[2024-03-03] MEDS ORDERED: FAMO40TA3 PO (10:46)
[2024-03-03] MEDS ORDERED: NORT25CA2 PO (10:46)
[2024-03-03] MEDS ORDERED: MAGN400T2 PO (10:46)
[2024-03-03] MEDS ORDERED: CHOL4PW PO (10:46)
[2024-03-03] MEDS ORDERED: FERR324T21 PO (10:46)
[2024-03-03] MEDS ORDERED: BISA5TAB15 PO (10:51)
[2024-03-03] MEDS ORDERED: TIZA4CAP3 PO (10:51)
[2024-03-03 10:55] LABS: INR 2.1; PARTIAL THROMBOPLASTIN TIME 45.1 SECONDS (24.8-34.2); PROTHROMBIN TIME 22.8 SECONDS (12.5-14.5)
[2024-03-03 11:08] LABS: LIPASE 24 U/L (12-53)
[2024-03-03 11:09] LABS: AMYLASE 53 U/L (30-118)
[2024-03-03 11:10] LABS: ALBUMIN 3.8 G/DL (3.2-5.2); ALKALINE PHOSPHATASE 83 U/L (46-116); ALT/SGPT 12 U/L (7.0-40); AST/SGOT 15 U/L (<34); BILIRUBIN,DIRECT 0.2 MG/DL (<0.4); BILIRUBIN,TOTAL 0.6 MG/DL (0.3-1.2); BLOOD UREA NITROGEN 11 MG/DL (9-23); CALCIUM LEVEL 8.6 MG/DL (8.5-10.1); CARBON DIOXIDE LEVEL 24 MMOL/L (20-31); CHLORIDE LEVEL 105 MMOL/L (98-107); CREATININE FOR GFR 0.65 MG/DL (0.55-1.30); GLOMERULAR FILTRATION RATE > 60.0 (>58); GLUCOSE, FASTING 108 MG/DL (60-100); POTASSIUM SERUM 3.9 MMOL/L (3.5-5.1); SODIUM LEVEL 137 MMOL/L (136-145); TOTAL PROTEIN 6.2 G/DL (5.7-8.2)
[2024-03-03] MEDS: ONDANSETRON 4MG 2ML VIAL IV ONE (11:52)
[2024-03-03] MEDS: NS 1,000 ML IV ONE (11:52)
[2024-03-03] MEDS: fentaNYL 100 MCG/2 ML INJECTION IV ONE ×3 (11:52→17:27)
[2024-03-03] MEDS ORDERED: ALBU2.5V10 INH (13:44)
[2024-03-03] MEDS ORDERED: MIRA3350 PO (13:44)
[2024-03-03] MEDS: METOCLOPRAMIDE INJ 10MG/2ML VIAL IV ONE (14:02)
[2024-03-03] MEDS: GASTROGRAFIN SOLUTION 30ML PO SCH (14:31)
[2024-03-03] MEDS: ACETAMINOPHEN TAB 650MG DOSE (2X325MG) PO ONE (15:17)
[2024-03-03] MEDS ORDERED: ISOVUE-370 76% 100ML VIAL As Ordered ONE (16:01)
[2024-03-03] MEDS: PIPERACILLIN/TAZOBACTAM SOD 3.375 GM in D5W MINI-BAG PLUS 50 ML IV ONE (18:04)
[2024-03-03] MEDS ORDERED: BACL5TAB2 PO (18:33)
[2024-03-03] MEDS ORDERED: TIZA10TA PO (18:33)
[2024-03-03] MEDS ORDERED: OMEP40CA5 PO (18:37)
[2024-03-03] MEDS ORDERED: HOME MED LIST COMPLETE! XX SCH (18:40)
[2024-03-03] MEDS ORDERED: HYDROMORPHONE HCL 0.5 MG/ 0.5 ML SYRINGE IV PRN (19:05)
[2024-03-03] MEDS: HYDROMORPHONE HCL 0.5 MG/ 0.5 ML SYRINGE IV PRN (20:39)
[2024-03-03] MEDS: LR 1,000 ML IV SCH (20:40)
[2024-03-03 21:20] VITALS: BP 117/80; TEMP 97.7; O2SAT 99
[2024-03-03] MEDS: PANTOPRAZOLE 40MG VIAL IV SCH (21:37)
[2024-03-03] MEDS: ONDANSETRON 4MG 2ML VIAL IV PRN (21:56)
[2024-03-03] MEDS: KETOROLAC 30 MG/ML 1ML VIAL IV ONE (23:41)
[2024-03-03] MEDS: PIPERACILLIN/TAZOBACTAM SOD 3.375 GM in D5W MINI-BAG PLUS 50 ML IV SCH (23:42)
[2024-03-04 06:09] VITALS: BP 100/60; TEMP 97.5; O2SAT 94
[2024-03-04 07:38] LABS: HEMATOCRIT 34.3 % (36.0-47.0); HEMOGLOBIN 11.9 g/dl (12.0-15.5); MEAN CORPUSCULAR HEMOGLOBIN 32.4 pg (27.0-33.0); MEAN CORPUSCULAR HGB CONC 34.7 g/dl (32.0-36.5); MEAN CORPUSCULAR VOLUME 93.5 fl (80.0-96.0); PLATELET COUNT, AUTOMATED 270 10^3/uL (150-450); RED BLOOD COUNT 3.67 10^6/uL (4.00-5.40); WHITE BLOOD COUNT 4.1 10^3/uL (4.0-10.0)
[2024-03-04 07:54] LABS: INR 2.12
[2024-03-04 08:16] LABS: HYPOCHROMASIA 2+; LYMPHOCYTES 10 % (16-44); MONOCYTES 3 % (0-5); NEUTROPHILS 61 % (28-66); PLATELET ESTIMATE NORMAL (NORMAL)
[2024-03-04] MEDS: VANCOMYCIN 125MG CAPSULE PO SCH (08:40)
[2024-03-04] MEDS: BACLOFEN 5MG PER 1/2 TABLET PO SCH (09:00)
[2024-03-04] MEDS ORDERED: ALBUTEROL SULFATE 2.5MG/0.5ML INH NEB SOLN INH PRN (10:25)
[2024-03-04] MEDS: MAG SULF 1GM/100ML (MAG RUN) 1 GM in IV 1 EA IV SCH (11:23)
[2024-03-04] MEDS: MAGNESIUM CITRATE 300ML BTL PO ONE (11:31)
[2024-03-04] MEDS: SENOKOT S TAB PO SCH (11:31)
[2024-03-04] MEDS: LORATADINE 10 MG TAB PO SCH (11:40)
[2024-03-04] MEDS: buPROPion 100 MG TAB PO SCH (11:40)
[2024-03-04] MEDS: MAGNESIUM OXIDE 400MG TAB (MAG-OX) PO SCH (11:40)
[2024-03-04 14:00] VITALS: BP 106/70; TEMP 97.7; O2SAT 96
[2024-03-04] MEDS: DICYCLOMINE 10 MG CAP PO PRN (15:50)
[2024-03-04] MEDS ORDERED: HYDROMORPHONE HCL 0.5 MG/ 0.5 ML SYRINGE IV PRN (16:20)
[2024-03-04] MEDS: tiZANidine 4 MG TAB PO SCH (17:11)
[2024-03-04] MEDS: HYDROMORPHONE HCL 0.5 MG/ 0.5 ML SYRINGE IV PRN (17:11)
[2024-03-04] MEDS: NORTRIPTYLINE 25 MG CAP PO SCH (17:12)
[2024-03-04] MEDS: WARFARIN SOD 2.5MG TAB PO SCH (17:12)
[2024-03-04 19:36] LABS: Trichomonas vaginalis (AMP) NOT DETECTED (NEGATIVE)
[2024-03-04 20:00] LABS: GC DNA AMPLIFICATION NEGATIVE (NEGATIVE)
[2024-03-04] MEDS: MIRALAX *UNIT DOSE* 17GM PACKET PO PRN (21:34)
[2024-03-04] MEDS: FAMOTIDINE 20 MG TAB PO SCH (21:34)
[2024-03-04] MEDS: MECLIZINE 12.5 MG TAB PO SCH (21:34)
[2024-03-04 22:00] VITALS: BP 103/68; TEMP 97.5; O2SAT 89
[2024-03-04 22:30] VITALS: O2SAT 95
[2024-03-05] VITALS (8 sets, daily range): BP systolic 90–101; BP diastolic 60–71; TEMP 97–97.7; O2SAT 91–92
[2024-03-05] MEDS: HYDROMORPHONE HCL 0.5 MG/ 0.5 ML SYRINGE IV PRN ×2 (01:43→18:36)
[2024-03-05] MEDS: ONDANSETRON 4MG ORAL DISINTEGRATING TAB PO ONE (06:10)
[2024-03-05 06:48] LABS: BASO # 0.1 10^3/uL (0.0-0.2); BASO % 0.6 % (0.0-1.0); EOS % 0.1 % (0.0-3.0); HEMATOCRIT 35.5 % (36.0-47.0); HEMOGLOBIN 12.5 g/dl (12.0-15.5); LYMPH # 0.4 10^3/uL (1.5-5.0); LYMPH % 4.5 % (24.0-44.0); MEAN CORPUSCULAR HGB CONC 35.2 g/dl (32.0-36.5); MEAN CORPUSCULAR VOLUME 90.8 fl (80.0-96.0); MONO # 0.1 10^3/uL (0.0-0.8); MONO % 1.4 % (2.0-8.0); NEUTROPHILS # 7.9 10^3/uL (1.5-8.5); NEUTROPHILS % 92.7 % (36.0-66.0); PLATELET COUNT, AUTOMATED 210 10^3/uL (150-450); RED BLOOD COUNT 3.91 10^6/uL (4.00-5.40); WHITE BLOOD COUNT 8.5 10^3/uL (4.0-10.0)
[2024-03-05 07:01] LABS: INR 2.18; PROTHROMBIN TIME 23.5 SECONDS (12.5-14.5)
[2024-03-05 07:19] LABS: BLOOD UREA NITROGEN 27 MG/DL (9-23); CALCIUM LEVEL 7.5 MG/DL (8.5-10.1); CARBON DIOXIDE LEVEL 26 MMOL/L (20-31); CHLORIDE LEVEL 100 MMOL/L (98-107); CREATININE FOR GFR 0.67 MG/DL (0.55-1.30); GLOMERULAR FILTRATION RATE > 60.0 (>58); GLUCOSE, FASTING 119 MG/DL (60-100); POTASSIUM SERUM 3.6 MMOL/L (3.5-5.1); SODIUM LEVEL 133 MMOL/L (136-145)
[2024-03-05] MEDS: DICYCLOMINE 10 MG CAP PO SCH (08:04)
[2024-03-05] MEDS ORDERED: ISOVUE-370 76% 100ML VIAL ONE (12:15)
[2024-03-05 12:30] LABS: ERYTHROCYTE SEDIMENTATION RATE 31 mm/hr (0-20)
[2024-03-05] MEDS: CHOLESTYRAMINE 4GM PWD PKT PO SCH (13:15)
[2024-03-05] MEDS ORDERED: ONDANSETRON 4MG 2ML VIAL ONE (13:23)
[2024-03-05] MEDS ORDERED: SUGAMMADEX SODIUM 500 MG/5 ML VIAL (BRIDION) ONE (13:23)
[2024-03-05] MEDS ORDERED: LIDOCAINE 2% 100MG/5ML SDV (FOR ANES.) ONE (13:24)
[2024-03-05] MEDS ORDERED: propofoL 200 MG/20 ML VIAL ONE (13:24)
[2024-03-05] MEDS ORDERED: ROCURONIUM BROMIDE 50MG/5ML VIAL ONE (13:24)
[2024-03-05] MEDS ORDERED: MIDAZOLAM INJ 2MG/2ML VIAL ONE (13:34)
[2024-03-05] MEDS ORDERED: fentaNYL 250 MCG/5 ML INJECTION ONE (13:34)
[2024-03-05 13:46] LABS: PROCALCITONIN 3.88 ng/ml
[2024-03-05] MEDS ORDERED: ESMOLOL INJ 100MG/10ML VIAL ONE (14:23)
[2024-03-05] MEDS ORDERED: ACETAMINOPHEN 1000MG 100ML IV BAG ONE (14:35)
[2024-03-05] MEDS ORDERED: dexmedeTOMIDine (4MCG/ML)200MCG/50ML BTL (PRECEDEX) ONE (14:35)
[2024-03-05] MEDS ORDERED: HYDROmorphone HCL 2MG/ML 1ML VIAL ONE (15:04)
[2024-03-05] MEDS ORDERED: ePHEDrine SULFATE 25 MG/5 ML(5MG/ML) SYRINGE ONE (15:28)
[2024-03-05] MEDS: LR 1,000 ML IV SCH (16:20)
[2024-03-05] MEDS ORDERED: oxyCODONE 5MG TAB PO PRN (16:20)
[2024-03-05] MEDS ORDERED: HYDROMORPHONE HCL 0.5 MG/ 0.5 ML SYRINGE IV PRN ×2 (16:20)
[2024-03-05] MEDS ORDERED: ONDANSETRON 4MG 2ML VIAL IV PRN (16:20)
[2024-03-05] MEDS ORDERED: WARFARIN SOD 3MG TAB PO SCH (17:00)
[2024-03-05] MEDS ORDERED: fentaNYL 100 MCG/2 ML INJECTION ONE (17:32)
[2024-03-05] MEDS: fentaNYL 100 MCG/2 ML INJECTION IV PRN (17:33)
[2024-03-06] VITALS (7 sets, daily range): BP systolic 82–98; BP diastolic 53–67; TEMP 97–97.5; O2SAT 90–94
[2024-03-06 06:20] LABS: BASO # 0.1 10^3/uL (0.0-0.2); BASO % 0.8 % (0.0-1.0); LYMPH # 0.3 10^3/uL (1.5-5.0); LYMPH % 5.1 % (24.0-44.0); MEAN CORPUSCULAR HEMOGLOBIN 31.3 pg (27.0-33.0); MEAN CORPUSCULAR HGB CONC 34.3 g/dl (32.0-36.5); MEAN CORPUSCULAR VOLUME 91.4 fl (80.0-96.0); MONO # 0.1 10^3/uL (0.0-0.8); MONO % 1.6 % (2.0-8.0); NEUTROPHILS # 5.9 10^3/uL (1.5-8.5); NEUTROPHILS % 92.2 % (36.0-66.0); PLATELET COUNT, AUTOMATED 229 10^3/uL (150-450); RED BLOOD COUNT 3.83 10^6/uL (4.00-5.40); WHITE BLOOD COUNT 6.4 10^3/uL (4.0-10.0)
[2024-03-06 06:29] LABS: INR 3.08; PROTHROMBIN TIME 30.6 SECONDS (12.5-14.5)
[2024-03-06 06:48] LABS: BLOOD UREA NITROGEN 26 MG/DL (9-23); CALCIUM LEVEL 7.3 MG/DL (8.5-10.1); CARBON DIOXIDE LEVEL 25 MMOL/L (20-31); CHLORIDE LEVEL 103 MMOL/L (98-107); CREATININE FOR GFR 0.65 MG/DL (0.55-1.30); GLOMERULAR FILTRATION RATE > 60.0 (>58); GLUCOSE, FASTING 111 MG/DL (60-100); POTASSIUM SERUM 4.1 MMOL/L (3.5-5.1); SODIUM LEVEL 134 MMOL/L (136-145)
[2024-03-06] MEDS: KETOROLAC 30 MG/ML 1ML VIAL IV PRN (08:53)
[2024-03-06] MEDS ORDERED: HYDROMORPHONE HCL 0.5 MG/ 0.5 ML SYRINGE IV PRN (09:40)
[2024-03-06 12:47] LABS: PROCALCITONIN 3.19 ng/ml
[2024-03-06] MEDS ORDERED: NORCO, ANEXSIA 5/325MG TABLET (HYDROcodone/ACETAMINOPHEN) PO PRN (22:05)
[2024-03-06] MEDS: NS 1,000 ML IV ONE (22:09)
[2024-03-07] MEDS: NORCO, ANEXSIA 5/325MG TABLET (HYDROcodone/ACETAMINOPHEN) PO PRN (03:09)
[2024-03-07 07:00] VITALS: BP 100/67; TEMP 97.9; O2SAT 90
[2024-03-07 07:30] VITALS: BP 100/67; TEMP 97.8; O2SAT 90
[2024-03-07] MEDS: HYDROMORPHONE HCL 0.5 MG/ 0.5 ML SYRINGE IV PRN (07:43)
[2024-03-07 08:44] LABS: BASO % 0.1 % (0.0-1.0); EOS % 0.1 % (0.0-3.0); LYMPH # 0.8 10^3/uL (1.5-5.0); LYMPH % 10.1 % (24.0-44.0); MEAN CORPUSCULAR VOLUME 91.4 fl (80.0-96.0); MONO # 0.3 10^3/uL (0.0-0.8); MONO % 3.6 % (2.0-8.0); NEUTROPHILS # 6.6 10^3/uL (1.5-8.5); NEUTROPHILS % 85.2 % (36.0-66.0); PLATELET COUNT, AUTOMATED 237 10^3/uL (150-450); RED BLOOD COUNT 2.78 10^6/uL (4.00-5.40); WHITE BLOOD COUNT 7.8 10^3/uL (4.0-10.0)
[2024-03-07 08:46] LABS: HEMATOCRIT 25.4 % (36.0-47.0); HEMOGLOBIN 8.9 g/dl (12.0-15.5)
[2024-03-07 09:04] LABS: BLOOD UREA NITROGEN 29 MG/DL (9-23); CALCIUM LEVEL 7.5 MG/DL (8.5-10.1); CARBON DIOXIDE LEVEL 24 MMOL/L (20-31); CHLORIDE LEVEL 107 MMOL/L (98-107); GLOMERULAR FILTRATION RATE > 60.0 (>58); GLUCOSE, FASTING 71 MG/DL (60-100); POTASSIUM SERUM 3.5 MMOL/L (3.5-5.1); SODIUM LEVEL 140 MMOL/L (136-145)
[2024-03-07 09:11] LABS: C REACTIVE PROTEIN QUANTITATIV 28.1 MG/DL (<1.0)
[2024-03-07 09:15] LABS: PROCALCITONIN 2.07 ng/ml
[2024-03-07 09:18] LABS: INR 2.75; PROTHROMBIN TIME 28.1 SECONDS (12.5-14.5)
[2024-03-07] MEDS ORDERED: PERCOCET 5MG/325MG TAB PO PRN (09:50)
[2024-03-07] MEDS: PERCOCET 5MG/325MG TAB PO PRN (10:34)
[2024-03-07 13:56] VITALS: BP 95/64; TEMP 97.5; O2SAT 91
[2024-03-07] MEDS: AMINO AC/ELECTROLYTE/DEX/CALC 1,000 ML IV SCH (18:44)
[2024-03-07] MEDS: FAT EMULSION IV 250 ML IV ONE (18:45)
[2024-03-07] MEDS: SODIUM CHLORIDE 0.9% INJ 10 ML SYR IV SCH (18:55)
[2024-03-07 20:25] VITALS: BP 100/68; TEMP 97.9; O2SAT 91
[2024-03-08 05:50] VITALS: BP 114/77; TEMP 97.9; O2SAT 98
[2024-03-08 06:24] LABS: HEMOGLOBIN 9.2 g/dl (12.0-15.5); MEAN CORPUSCULAR HEMOGLOBIN 31.5 pg (27.0-33.0); MEAN CORPUSCULAR HGB CONC 34.1 g/dl (32.0-36.5); MEAN CORPUSCULAR VOLUME 92.5 fl (80.0-96.0); PLATELET COUNT, AUTOMATED 241 10^3/uL (150-450); RED BLOOD COUNT 2.92 10^6/uL (4.00-5.40)
[2024-03-08 06:38] LABS: INR 2.32; PROTHROMBIN TIME 24.6 SECONDS (12.5-14.5)
[2024-03-08 06:58] LABS: BLOOD UREA NITROGEN 22 MG/DL (9-23); CALCIUM LEVEL 7.2 MG/DL (8.5-10.1); CARBON DIOXIDE LEVEL 28 MMOL/L (20-31); CHLORIDE LEVEL 107 MMOL/L (98-107); CREATININE FOR GFR 0.62 MG/DL (0.55-1.30); GLOMERULAR FILTRATION RATE > 60.0 (>58); GLUCOSE, FASTING 96 MG/DL (60-100); POTASSIUM SERUM 3.5 MMOL/L (3.5-5.1); SODIUM LEVEL 140 MMOL/L (136-145)
[2024-03-08 07:08] LABS: ATYPICAL LYMPH 1 % (0-5); EOSINOPHILS 1 % (0-3); LYMPHOCYTES 9 % (16-44); MONOCYTES 3 % (0-5); NEUTROPHILS 86 % (28-66); PLATELET ESTIMATE NORMAL (NORMAL)
[2024-03-08 07:44] LABS: PROCALCITONIN 1.04 ng/ml
[2024-03-08] MEDS: HYDROMORPHONE HCL 0.5 MG/ 0.5 ML SYRINGE IV PRN ×2 (09:30→18:41)
[2024-03-08] MEDS ORDERED: LORazepam 2 MG/ML 1ML VIAL IV PRN (12:20)
[2024-03-08] MEDS: AMINO AC/ELECTROLYTE/DEX/CALC 1,000 ML IV SCH (18:31)
[2024-03-08] MEDS: FAT EMULSION IV 250 ML IV ONE (18:31)
[2024-03-08 20:51] VITALS: BP 115/77; TEMP 98.1; O2SAT 91
[2024-03-08] MEDS: SODIUM CHLORIDE 0.9% INJ 10 ML SYR IV PRN (20:52)
[2024-03-08] MEDS: LORazepam 0.5 MG TAB SL PRN (23:20)
[2024-03-09 06:09] VITALS: BP 115/78; TEMP 98.1; O2SAT 94
[2024-03-09 07:19] LABS: BASO % 0.1 % (0.0-1.0); EOS # 0.1 10^3/uL (0.0-0.5); EOS % 0.5 % (0.0-3.0); HEMOGLOBIN 8.4 g/dl (12.0-15.5); LYMPH # 0.9 10^3/uL (1.5-5.0); LYMPH % 6.5 % (24.0-44.0); MEAN CORPUSCULAR HEMOGLOBIN 31.9 pg (27.0-33.0); MEAN CORPUSCULAR HGB CONC 33.6 g/dl (32.0-36.5); MEAN CORPUSCULAR VOLUME 95.1 fl (80.0-96.0); MONO # 0.5 10^3/uL (0.0-0.8); MONO % 3.9 % (2.0-8.0); NEUTROPHILS # 11.8 10^3/uL (1.5-8.5); NEUTROPHILS % 84.7 % (36.0-66.0); PLATELET COUNT, AUTOMATED 303 10^3/uL (150-450); RED BLOOD COUNT 2.63 10^6/uL (4.00-5.40); WHITE BLOOD COUNT 13.9 10^3/uL (4.0-10.0)
[2024-03-09 07:31] LABS: INR 1.19; PROTHROMBIN TIME 14.8 SECONDS (12.5-14.5)
[2024-03-09 07:48] LABS: BLOOD UREA NITROGEN 13 MG/DL (9-23); CALCIUM LEVEL 7.1 MG/DL (8.5-10.1); CARBON DIOXIDE LEVEL 28 MMOL/L (20-31); CHLORIDE LEVEL 107 MMOL/L (98-107); CREATININE FOR GFR 0.48 MG/DL (0.55-1.30); GLOMERULAR FILTRATION RATE > 60.0 (>58); GLUCOSE, FASTING 103 MG/DL (60-100); POTASSIUM SERUM 3.7 MMOL/L (3.5-5.1); SODIUM LEVEL 142 MMOL/L (136-145)
[2024-03-09] MEDS: GASTROGRAFIN SOLUTION 30ML PO SCH (10:30)
[2024-03-09 10:51] LABS: GLOMERULAR FILTRATION RATE > 60.0 (>58)
[2024-03-09] MEDS: ENOXAPARIN 80MG/0.8ML SYRINGE (J1650 PER 10MG) SC SCH (11:29)
[2024-03-09 14:00] VITALS: BP 115/76; TEMP 98.1; O2SAT 95
[2024-03-09 14:55] VITALS: BP 115/76; TEMP 98.1; O2SAT 95
[2024-03-09] MEDS: FUROSEMIDE 40MG/4ML VIAL IV ONE (17:15)
[2024-03-09] MEDS: HYDROMORPHONE HCL 0.5 MG/ 0.5 ML SYRINGE IV ONE (17:17)
[2024-03-09] MEDS: AMINO AC/ELECTROLYTE/DEX/CALC 1,000 ML IV SCH (18:56)
[2024-03-09] MEDS: FAT EMULSION IV 250 ML IV ONE (18:56)
[2024-03-09 20:24] VITALS: BP 112/74; TEMP 97.5; O2SAT 96
[2024-03-10 06:02] VITALS: BP 115/76; TEMP 97.9; O2SAT 95
[2024-03-10 07:22] LABS: BASO % 0.2 % (0.0-1.0); EOS # 0.1 10^3/uL (0.0-0.5); EOS % 0.6 % (0.0-3.0); HEMATOCRIT 24.4 % (36.0-47.0); HEMOGLOBIN 8.1 g/dl (12.0-15.5); LYMPH % 5.9 % (24.0-44.0); MEAN CORPUSCULAR HEMOGLOBIN 31.6 pg (27.0-33.0); MEAN CORPUSCULAR HGB CONC 33.2 g/dl (32.0-36.5); MEAN CORPUSCULAR VOLUME 95.3 fl (80.0-96.0); MONO # 0.6 10^3/uL (0.0-0.8); MONO % 3.6 % (2.0-8.0); NEUTROPHILS # 13.6 10^3/uL (1.5-8.5); NEUTROPHILS % 85.1 % (36.0-66.0); PLATELET COUNT, AUTOMATED 353 10^3/uL (150-450); RED BLOOD COUNT 2.56 10^6/uL (4.00-5.40)
[2024-03-10 07:36] LABS: INR 1.2; PROTHROMBIN TIME 14.9 SECONDS (12.5-14.5)
[2024-03-10 07:46] LABS: BLOOD UREA NITROGEN 13 MG/DL (9-23); CALCIUM LEVEL 7.3 MG/DL (8.5-10.1); CARBON DIOXIDE LEVEL 28 MMOL/L (20-31); CHLORIDE LEVEL 103 MMOL/L (98-107); CREATININE FOR GFR 0.53 MG/DL (0.55-1.30); GLOMERULAR FILTRATION RATE > 60.0 (>58); GLUCOSE, FASTING 112 MG/DL (60-100); POTASSIUM SERUM 3.5 MMOL/L (3.5-5.1); SODIUM LEVEL 138 MMOL/L (136-145)
[2024-03-10] MEDS ORDERED: IPRATROPIUM 0.5MG/ALBUTEROL 2.5MG INH SOL UD 3ML (DUONEB) NEB PRN (10:15)
[2024-03-10 10:52] LABS: HEMATOCRIT 24.7 % (36.0-47.0); HEMOGLOBIN 8.3 g/dl (12.0-15.5)
[2024-03-10 11:39] VITALS: O2SAT 96
[2024-03-10] MEDS: DOXYCYCLINE HYCLATE 100 MG in D5W MINI-BAG PLUS 100 ML IV SCH (11:49)
[2024-03-10] MEDS: ACETAMINOPHEN TAB 650MG DOSE (2X325MG) PO ONE (11:50)
[2024-03-10] MEDS: FUROSEMIDE 20MG/2ML VIAL IV ONE (11:50)
[2024-03-10] MEDS: IPRATROPIUM 0.5MG/ALBUTEROL 2.5MG INH SOL UD 3ML (DUONEB) NEB SCH (14:54)
[2024-03-10 15:09] VITALS: BP 105/70; TEMP 97.7; O2SAT 96
[2024-03-10] MEDS: MULTIVITAMIN -ADULT INJECTION 10 ML, ZINC/COPPER/MANGANESE/SELENIUM 1 ML in AMINO AC/EL... IV SCH (17:29)
[2024-03-10] MEDS: FAT EMULSION IV 250 ML IV ONE (17:29)
[2024-03-10 20:24] VITALS: BP 104/69; TEMP 97.9; O2SAT 92
[2024-03-11 05:42] VITALS: BP 112/72; TEMP 97.5; O2SAT 93
[2024-03-11 07:30] LABS: BASO % 0.2 % (0.0-1.0); EOS # 0.1 10^3/uL (0.0-0.5); EOS % 0.4 % (0.0-3.0); HEMATOCRIT 23.2 % (36.0-47.0); HEMOGLOBIN 7.8 g/dl (12.0-15.5); LYMPH # 1.3 10^3/uL (1.5-5.0); MEAN CORPUSCULAR HEMOGLOBIN 31.8 pg (27.0-33.0); MEAN CORPUSCULAR HGB CONC 33.6 g/dl (32.0-36.5); MEAN CORPUSCULAR VOLUME 94.7 fl (80.0-96.0); MONO # 0.7 10^3/uL (0.0-0.8); MONO % 4.3 % (2.0-8.0); NEUTROPHILS # 13.2 10^3/uL (1.5-8.5); NEUTROPHILS % 84.2 % (36.0-66.0); PLATELET COUNT, AUTOMATED 426 10^3/uL (150-450); RED BLOOD COUNT 2.45 10^6/uL (4.00-5.40); WHITE BLOOD COUNT 15.7 10^3/uL (4.0-10.0)
[2024-03-11 08:00] LABS: BLOOD UREA NITROGEN 16 MG/DL (9-23); CALCIUM LEVEL 7.4 MG/DL (8.5-10.1); CARBON DIOXIDE LEVEL 29 MMOL/L (20-31); CHLORIDE LEVEL 102 MMOL/L (98-107); CREATININE FOR GFR 0.55 MG/DL (0.55-1.30); GLOMERULAR FILTRATION RATE > 60.0 (>58); GLUCOSE, FASTING 112 MG/DL (60-100); MAGNESIUM LEVEL 1.6 MG/DL (1.8-2.4); POTASSIUM SERUM 3.5 MMOL/L (3.5-5.1); SODIUM LEVEL 138 MMOL/L (136-145)
[2024-03-11] MEDS: FUROSEMIDE 40MG/4ML VIAL IV ONE (09:04)
[2024-03-11] MEDS: MAG SULF 1GM/100ML (MAG RUN) 1 GM in IV 1 EA IV SCH (09:04)
[2024-03-11] MEDS: MAGNESIUM CITRATE 300ML BTL NG ONE (09:05)
[2024-03-11] MEDS ORDERED: NORCO, ANEXSIA 5/325MG TABLET (HYDROcodone/ACETAMINOPHEN) PO PRN (10:15)
[2024-03-11] MEDS: NORCO, ANEXSIA 5/325MG TABLET (HYDROcodone/ACETAMINOPHEN) PO PRN (10:35)
[2024-03-11] MEDS: HYDROMORPHONE HCL 0.5 MG/ 0.5 ML SYRINGE IV PRN (12:53)
[2024-03-11] MEDS ORDERED: NYSTATIN 500,000U/5ML SUSP UDC SS SCH (13:00)
[2024-03-11] MEDS: CLOTRIMAZOLE 10 MG TROCHE PO SCH (13:00)
[2024-03-11 14:00] VITALS: BP 123/70; TEMP 97.7; O2SAT 94
[2024-03-11 15:46] VITALS: BP 117/74; O2SAT 96
[2024-03-11 16:15] LABS: HEMATOCRIT 23.7 % (36.0-47.0); HEMOGLOBIN 8.1 g/dl (12.0-15.5); MEAN CORPUSCULAR HEMOGLOBIN 31.9 pg (27.0-33.0); MEAN CORPUSCULAR HGB CONC 34.2 g/dl (32.0-36.5); MEAN CORPUSCULAR VOLUME 93.3 fl (80.0-96.0); PLATELET COUNT, AUTOMATED 466 10^3/uL (150-450); RED BLOOD COUNT 2.54 10^6/uL (4.00-5.40); WHITE BLOOD COUNT 16.2 10^3/uL (4.0-10.0)
[2024-03-11] MEDS: AMINO AC/ELECTROLYTE/DEX/CALC 1,000 ML IV SCH (18:24)
[2024-03-11] MEDS: FAT EMULSION IV 250 ML IV ONE (18:24)
[2024-03-11 20:50] VITALS: BP 110/72; TEMP 97.9; O2SAT 98
[2024-03-12] VITALS (14 sets, daily range): BP systolic 90–120; BP diastolic 60–80; TEMP 96.8–98.1; O2SAT 92–97
[2024-03-12 06:07] LABS: BASO # 0.1 10^3/uL (0.0-0.2); BASO % 0.3 % (0.0-1.0); EOS # 0.1 10^3/uL (0.0-0.5); EOS % 0.4 % (0.0-3.0); HEMATOCRIT 21.1 % (36.0-47.0); HEMOGLOBIN 7.1 g/dl (12.0-15.5); LYMPH # 1.6 10^3/uL (1.5-5.0); LYMPH % 8.3 % (24.0-44.0); MEAN CORPUSCULAR HEMOGLOBIN 31.6 pg (27.0-33.0); MEAN CORPUSCULAR HGB CONC 33.6 g/dl (32.0-36.5); MEAN CORPUSCULAR VOLUME 93.8 fl (80.0-96.0); MONO % 5.4 % (2.0-8.0); NEUTROPHILS # 15.8 10^3/uL (1.5-8.5); NEUTROPHILS % 83.4 % (36.0-66.0); PLATELET COUNT, AUTOMATED 481 10^3/uL (150-450); RED BLOOD COUNT 2.25 10^6/uL (4.00-5.40)
[2024-03-12 06:37] LABS: BLOOD UREA NITROGEN 14 MG/DL (9-23); CALCIUM LEVEL 7.1 MG/DL (8.5-10.1); CARBON DIOXIDE LEVEL 30 MMOL/L (20-31); CHLORIDE LEVEL 102 MMOL/L (98-107); GLOMERULAR FILTRATION RATE > 60.0 (>58); GLUCOSE, FASTING 107 MG/DL (60-100); MAGNESIUM LEVEL 1.8 MG/DL (1.8-2.4); POTASSIUM SERUM 3.7 MMOL/L (3.5-5.1); SODIUM LEVEL 138 MMOL/L (136-145)
[2024-03-12] MEDS: HYDROMORPHONE HCL 0.5 MG/ 0.5 ML SYRINGE IV PRN (10:58)
[2024-03-12] MEDS: IBUPROFEN 400MG TAB PO PRN (13:06)
[2024-03-12] MEDS: SUCRALFATE SUSP 1GM/10ML UD PO PRN (13:06)
[2024-03-12] MEDS: MULTIVITAMIN -ADULT INJECTION 10 ML, ZINC/COPPER/MANGANESE/SELENIUM 1 ML in AMINO AC/EL... IV SCH (17:34)
[2024-03-12] MEDS: FAT EMULSION IV 250 ML IV ONE (17:34)
[2024-03-12 20:19] LABS: HEMATOCRIT 27.5 % (36.0-47.0)
[2024-03-12 20:21] LABS: HEMOGLOBIN 9.6 g/dl (12.0-15.5)
[2024-03-13 02:30] VITALS: BP 110/60; TEMP 96; O2SAT 95
[2024-03-13 05:34] VITALS: BP 100/60; TEMP 97.5; O2SAT 94
[2024-03-13 07:57] LABS: BASO # 0.1 10^3/uL (0.0-0.2); BASO % 0.3 % (0.0-1.0); EOS # 0.1 10^3/uL (0.0-0.5); EOS % 0.7 % (0.0-3.0); HEMATOCRIT 26.6 % (36.0-47.0); HEMOGLOBIN 8.9 g/dl (12.0-15.5); LYMPH # 1.8 10^3/uL (1.5-5.0); LYMPH % 9.4 % (24.0-44.0); MEAN CORPUSCULAR HEMOGLOBIN 31.1 pg (27.0-33.0); MEAN CORPUSCULAR HGB CONC 33.5 g/dl (32.0-36.5); MONO % 5.3 % (2.0-8.0); NEUTROPHILS # 15.2 10^3/uL (1.5-8.5); PLATELET COUNT, AUTOMATED 483 10^3/uL (150-450); RED BLOOD COUNT 2.86 10^6/uL (4.00-5.40)
[2024-03-13 08:29] LABS: BLOOD UREA NITROGEN 12 MG/DL (9-23); CALCIUM LEVEL 7.6 MG/DL (8.5-10.1); CARBON DIOXIDE LEVEL 30 MMOL/L (20-31); CHLORIDE LEVEL 104 MMOL/L (98-107); CREATININE FOR GFR 0.55 MG/DL (0.55-1.30); GLOMERULAR FILTRATION RATE > 60.0 (>58); GLUCOSE, FASTING 100 MG/DL (60-100); MAGNESIUM LEVEL 1.8 MG/DL (1.8-2.4); POTASSIUM SERUM 3.9 MMOL/L (3.5-5.1); SODIUM LEVEL 140 MMOL/L (136-145)
[2024-03-13] MEDS: MAGNESIUM CITRATE 300ML BTL NG ONE (10:48)
[2024-03-13 13:06] LABS: PROCALCITONIN 0.33 ng/ml
[2024-03-13 14:30] VITALS: BP 95/63; TEMP 97.7; O2SAT 94
[2024-03-13] MEDS ORDERED: HYDROcodone/APAP LIQUID 7.5-325MG 15ML UDC (LORTAB ELIXIR) PO PRN ×2 (17:10)
[2024-03-13] MEDS: AMINO AC/ELECTROLYTE/DEX/CALC 1,000 ML IV SCH (17:39)
[2024-03-13] MEDS: FAT EMULSION IV 250 ML IV ONE (17:39)
[2024-03-13 21:55] VITALS: BP 95/63; TEMP 97.7; O2SAT 96
[2024-03-14 06:22] LABS: HEMATOCRIT 26.5 % (36.0-47.0); HEMOGLOBIN 8.9 g/dl (12.0-15.5); MEAN CORPUSCULAR HEMOGLOBIN 30.9 pg (27.0-33.0); MEAN CORPUSCULAR HGB CONC 33.6 g/dl (32.0-36.5); PLATELET COUNT, AUTOMATED 543 10^3/uL (150-450); RED BLOOD COUNT 2.88 10^6/uL (4.00-5.40); WHITE BLOOD COUNT 20.8 10^3/uL (4.0-10.0)
[2024-03-14 06:48] LABS: BLOOD UREA NITROGEN 14 MG/DL (9-23); CALCIUM LEVEL 7.6 MG/DL (8.5-10.1); CARBON DIOXIDE LEVEL 27 MMOL/L (20-31); CHLORIDE LEVEL 104 MMOL/L (98-107); CREATININE FOR GFR 0.47 MG/DL (0.55-1.30); GLOMERULAR FILTRATION RATE > 60.0 (>58); GLUCOSE, FASTING 107 MG/DL (60-100); MAGNESIUM LEVEL 1.8 MG/DL (1.8-2.4); POTASSIUM SERUM 3.9 MMOL/L (3.5-5.1); SODIUM LEVEL 138 MMOL/L (136-145)
[2024-03-14 06:56] VITALS: BP 96/63; TEMP 97.5; O2SAT 95
[2024-03-14 07:04] LABS: LYMPHOCYTES 14 % (16-44); MONOCYTES 3 % (0-5); NEUTROPHILS 83 % (28-66); PLATELET ESTIMATE INCREASED (NORMAL)
[2024-03-14] MEDS: HYDROMORPHONE HCL 0.5 MG/ 0.5 ML SYRINGE IV PRN ×2 (08:42→13:33)
[2024-03-14 09:00] VITALS: BP 101/62; TEMP 97.3; O2SAT 95
[2024-03-14] MEDS ORDERED: LIDOCAINE 1% MDV 20ML VIAL As Ordered ONE (10:46)
[2024-03-14 15:33] VITALS: BP 112/64; TEMP 98; O2SAT 95
[2024-03-14] MEDS: FLUCONAZOLE 400 MG in IV 1 EA IV SCH (16:33)
[2024-03-14] MEDS: MEROPENEM INJ 1 GM in IV 1 EA IV SCH (18:56)
[2024-03-14] MEDS: FAT EMULSION IV 250 ML IV ONE (18:57)
[2024-03-14] MEDS: MULTIVITAMIN -ADULT INJECTION 10 ML, ZINC/COPPER/MANGANESE/SELENIUM 1 ML in AMINO AC/EL... IV SCH (18:57)
[2024-03-14 19:35] VITALS: BP 98/55; TEMP 98.2; O2SAT 96
[2024-03-14] MEDS: LINEZOLID 600 MG in IV 1 EA IV SCH (20:54)
[2024-03-14 23:20] VITALS: BP 90/58; TEMP 97.4; O2SAT 96
[2024-03-15] VITALS (12 sets, daily range): BP systolic 86–108; BP diastolic 40–57; TEMP 97–97.7; O2SAT 96–99
[2024-03-15] MEDS: MAGIC MOUTHWASH 5ML ORAL SYRINGE SS PRN (03:07)
[2024-03-15 06:31] LABS: BASO # 0.1 10^3/uL (0.0-0.2); BASO % 0.4 % (0.0-1.0); EOS # 0.1 10^3/uL (0.0-0.5); EOS % 0.5 % (0.0-3.0); HEMATOCRIT 26.2 % (36.0-47.0); HEMOGLOBIN 8.7 g/dl (12.0-15.5); LYMPH % 10.2 % (24.0-44.0); MEAN CORPUSCULAR HEMOGLOBIN 31.3 pg (27.0-33.0); MEAN CORPUSCULAR HGB CONC 33.2 g/dl (32.0-36.5); MEAN CORPUSCULAR VOLUME 94.2 fl (80.0-96.0); MONO # 1.3 10^3/uL (0.0-0.8); MONO % 6.8 % (2.0-8.0); NEUTROPHILS # 14.9 10^3/uL (1.5-8.5); NEUTROPHILS % 77.4 % (36.0-66.0); PLATELET COUNT, AUTOMATED 628 10^3/uL (150-450); RED BLOOD COUNT 2.78 10^6/uL (4.00-5.40); WHITE BLOOD COUNT 19.3 10^3/uL (4.0-10.0)
[2024-03-15 06:59] LABS: BLOOD UREA NITROGEN 13 MG/DL (9-23); CALCIUM LEVEL 7.8 MG/DL (8.5-10.1); CARBON DIOXIDE LEVEL 28 MMOL/L (20-31); CHLORIDE LEVEL 102 MMOL/L (98-107); CREATININE FOR GFR 0.47 MG/DL (0.55-1.30); GLOMERULAR FILTRATION RATE > 60.0 (>58); GLUCOSE, FASTING 119 MG/DL (60-100); MAGNESIUM LEVEL 1.8 MG/DL (1.8-2.4); POTASSIUM SERUM 4.2 MMOL/L (3.5-5.1); SODIUM LEVEL 135 MMOL/L (136-145)
[2024-03-15] MEDS: ACETAMINOPHEN *IV* 1,000 MG in IV 1 EA IV ONE (11:23)
[2024-03-15] MEDS: NS 1,000 ML IV ONE (12:23)
[2024-03-15] MEDS: NS 1,000 ML IV SCH ×2 (13:56→18:31)
[2024-03-15 14:02] LABS: HEMATOCRIT 24.1 % (36.0-47.0); HEMOGLOBIN 8.2 g/dl (12.0-15.5); MEAN CORPUSCULAR VOLUME 94.1 fl (80.0-96.0); PLATELET COUNT, AUTOMATED 592 10^3/uL (150-450); RED BLOOD COUNT 2.56 10^6/uL (4.00-5.40); WHITE BLOOD COUNT 17.9 10^3/uL (4.0-10.0)
[2024-03-15 15:20] LABS: LYMPHOCYTES 8 % (16-44); MONOCYTES 5 % (0-5); NEUTROPHILS 87 % (28-66); PLATELET ESTIMATE NORMAL (NORMAL)
[2024-03-15] MEDS: INSULIN LISPRO (NovoLOG) PER UNIT SC SCH (18:00)
[2024-03-15] MEDS: FAT EMULSION IV 250 ML IV ONE (18:27)
[2024-03-15] MEDS: AMINO AC/ELECTROLYTE/DEX/CALC 2,000 ML IV SCH (18:27)
[2024-03-15] MEDS: ENOXAPARIN 80MG/0.8ML SYRINGE (J1650 PER 10MG) SC SCH (21:44)
[2024-03-16] VITALS (10 sets, daily range): BP systolic 91–117; BP diastolic 51–75; TEMP 97.1–97.8; O2SAT 96–100
[2024-03-16 05:19] LABS: BASO # 0.1 10^3/uL (0.0-0.2); BASO % 0.4 % (0.0-1.0); EOS # 0.1 10^3/uL (0.0-0.5); EOS % 0.7 % (0.0-3.0); HEMATOCRIT 23.7 % (36.0-47.0); HEMOGLOBIN 7.8 g/dl (12.0-15.5); LYMPH # 2.5 10^3/uL (1.5-5.0); LYMPH % 15.1 % (24.0-44.0); MEAN CORPUSCULAR HEMOGLOBIN 31.5 pg (27.0-33.0); MEAN CORPUSCULAR HGB CONC 32.9 g/dl (32.0-36.5); MEAN CORPUSCULAR VOLUME 95.6 fl (80.0-96.0); MONO # 1.1 10^3/uL (0.0-0.8); MONO % 6.6 % (2.0-8.0); NEUTROPHILS # 12.3 10^3/uL (1.5-8.5); NEUTROPHILS % 72.9 % (36.0-66.0); PLATELET COUNT, AUTOMATED 635 10^3/uL (150-450); RED BLOOD COUNT 2.48 10^6/uL (4.00-5.40); WHITE BLOOD COUNT 16.8 10^3/uL (4.0-10.0)
[2024-03-16 05:46] LABS: ALBUMIN 1.6 G/DL (3.2-5.2); ALKALINE PHOSPHATASE 152 U/L (46-116); ALT/SGPT 12 U/L (7.0-40); AST/SGOT 16 U/L (<34); BILIRUBIN,DIRECT 0.1 MG/DL (<0.4); BILIRUBIN,TOTAL 0.2 MG/DL (0.3-1.2); BLOOD UREA NITROGEN 10 MG/DL (9-23); CALCIUM LEVEL 7.3 MG/DL (8.5-10.1); CARBON DIOXIDE LEVEL 24 MMOL/L (20-31); CHLORIDE LEVEL 107 MMOL/L (98-107); CREATININE FOR GFR 0.42 MG/DL (0.55-1.30); GLOMERULAR FILTRATION RATE > 60.0 (>58); GLUCOSE, FASTING 113 MG/DL (60-100); MAGNESIUM LEVEL 1.7 MG/DL (1.8-2.4); POTASSIUM SERUM 4.1 MMOL/L (3.5-5.1); SODIUM LEVEL 137 MMOL/L (136-145); TOTAL PROTEIN 4.6 G/DL (5.7-8.2)
[2024-03-16] MEDS: MAG SULF 1GM/100ML (MAG RUN) 1 GM in IV 1 EA IV ONE (07:39)
[2024-03-16] MEDS: BISACODYL 10MG SUPP PR ONE (11:45)
[2024-03-16] MEDS: ACETAMINOPHEN *IV* 1,000 MG in IV 1 EA IV ONE (16:30)
[2024-03-16] MEDS: MAGNESIUM SULFATE IV SCH (17:29)
[2024-03-16] MEDS: AMINO AC IV SCH (17:29)
[2024-03-16] MEDS: CALC IV SCH (17:29)
[2024-03-16] MEDS: ELECTROLYTE IV SCH (17:29)
[2024-03-16] MEDS: DEX IV SCH (17:29)
[2024-03-16] MEDS: FAT EMULSION IV 250 ML IV ONE (17:30)
[2024-03-16] MEDS: INSULIN LISPRO (NovoLOG) PER UNIT SC SCH (18:00)
[2024-03-16] MEDS: LACTULOSE 20GM/30ML SYRUP UDC PO SCH (20:32)
[2024-03-17 03:41] VITALS: BP 102/61; TEMP 98; O2SAT 94
[2024-03-17 07:05] LABS: BASO # 0.1 10^3/uL (0.0-0.2); BASO % 0.4 % (0.0-1.0); EOS # 0.1 10^3/uL (0.0-0.5); EOS % 0.5 % (0.0-3.0); HEMATOCRIT 26.5 % (36.0-47.0); HEMOGLOBIN 8.9 g/dl (12.0-15.5); LYMPH # 1.9 10^3/uL (1.5-5.0); LYMPH % 11.5 % (24.0-44.0); MEAN CORPUSCULAR HEMOGLOBIN 31.3 pg (27.0-33.0); MEAN CORPUSCULAR HGB CONC 33.6 g/dl (32.0-36.5); MEAN CORPUSCULAR VOLUME 93.3 fl (80.0-96.0); NEUTROPHILS # 12.9 10^3/uL (1.5-8.5); NEUTROPHILS % 79.1 % (36.0-66.0); PLATELET COUNT, AUTOMATED 710 10^3/uL (150-450); RED BLOOD COUNT 2.84 10^6/uL (4.00-5.40); WHITE BLOOD COUNT 16.4 10^3/uL (4.0-10.0)
[2024-03-17 07:26] LABS: ALBUMIN 1.7 G/DL (3.2-5.2); ALKALINE PHOSPHATASE 190 U/L (46-116); ALT/SGPT 10 U/L (7.0-40); AST/SGOT 14 U/L (<34); BILIRUBIN,DIRECT 0.2 MG/DL (<0.4); BILIRUBIN,TOTAL 0.3 MG/DL (0.3-1.2); BLOOD UREA NITROGEN 11 MG/DL (9-23); CALCIUM LEVEL 7.5 MG/DL (8.5-10.1); CARBON DIOXIDE LEVEL 24 MMOL/L (20-31); CHLORIDE LEVEL 102 MMOL/L (98-107); CREATININE FOR GFR 0.41 MG/DL (0.55-1.30); GLOMERULAR FILTRATION RATE > 60.0 (>58); GLUCOSE, FASTING 137 MG/DL (60-100); MAGNESIUM LEVEL 1.8 MG/DL (1.8-2.4); POTASSIUM SERUM 4.2 MMOL/L (3.5-5.1); SODIUM LEVEL 134 MMOL/L (136-145); TOTAL PROTEIN 4.9 G/DL (5.7-8.2)
[2024-03-17 07:54] VITALS: BP 98/52; TEMP 97.8; O2SAT 97
[2024-03-17] MEDS: BISACODYL 10MG SUPP PR SCH (08:54)
[2024-03-17 11:43] VITALS: BP 113/77; TEMP 97.7; O2SAT 97
[2024-03-17] MEDS: ACETAMINOPHEN *IV* 1,000 MG in IV 1 EA IV ONE (14:51)
[2024-03-17 15:57] VITALS: BP 101/54; TEMP 97.2; O2SAT 97
[2024-03-17] MEDS: INSULIN LISPRO (NovoLOG) PER UNIT SC SCH (17:49)
[2024-03-17] MEDS: FAT EMULSION IV 250 ML IV ONE (18:22)
[2024-03-17] MEDS: MULTIVITAMIN -ADULT INJECTION 10 ML, ZINC/COPPER/MANGANESE/SELENIUM 1 ML in AMINO AC/EL... IV SCH (18:23)
[2024-03-18 04:27] VITALS: BP 92/64; TEMP 97.6; O2SAT 94
[2024-03-18 08:09] LABS: BASO # 0.1 10^3/uL (0.0-0.2); BASO % 0.4 % (0.0-1.0); EOS # 0.1 10^3/uL (0.0-0.5); EOS % 0.8 % (0.0-3.0); HEMATOCRIT 27.2 % (36.0-47.0); HEMOGLOBIN 9.3 g/dl (12.0-15.5); LYMPH # 1.7 10^3/uL (1.5-5.0); LYMPH % 12.7 % (24.0-44.0); MEAN CORPUSCULAR HEMOGLOBIN 32.2 pg (27.0-33.0); MEAN CORPUSCULAR HGB CONC 34.2 g/dl (32.0-36.5); MEAN CORPUSCULAR VOLUME 94.1 fl (80.0-96.0); MONO # 0.8 10^3/uL (0.0-0.8); MONO % 6.1 % (2.0-8.0); NEUTROPHILS # 10.6 10^3/uL (1.5-8.5); NEUTROPHILS % 78.2 % (36.0-66.0); PLATELET COUNT, AUTOMATED 792 10^3/uL (150-450); RED BLOOD COUNT 2.89 10^6/uL (4.00-5.40); WHITE BLOOD COUNT 13.6 10^3/uL (4.0-10.0)
[2024-03-18 08:19] VITALS: BP 90/56; TEMP 96.3; O2SAT 96
[2024-03-18 08:36] LABS: ALBUMIN 1.8 G/DL (3.2-5.2); ALKALINE PHOSPHATASE 177 U/L (46-116); ALT/SGPT 9 U/L (7.0-40); AST/SGOT 12 U/L (<34); BILIRUBIN,DIRECT 0.2 MG/DL (<0.4); BILIRUBIN,TOTAL 0.3 MG/DL (0.3-1.2); BLOOD UREA NITROGEN 12 MG/DL (9-23); CALCIUM LEVEL 7.8 MG/DL (8.5-10.1); CARBON DIOXIDE LEVEL 26 MMOL/L (20-31); CHLORIDE LEVEL 103 MMOL/L (98-107); CREATININE FOR GFR 0.42 MG/DL (0.55-1.30); GLOMERULAR FILTRATION RATE > 60.0 (>58); GLUCOSE, FASTING 99 MG/DL (60-100); MAGNESIUM LEVEL 1.7 MG/DL (1.8-2.4); POTASSIUM SERUM 4.4 MMOL/L (3.5-5.1); SODIUM LEVEL 135 MMOL/L (136-145); TOTAL PROTEIN 5.3 G/DL (5.7-8.2)
[2024-03-18] MEDS: MAG SULF 1GM/100ML (MAG RUN) 1 GM in IV 1 EA IV SCH (10:30)
[2024-03-18 11:23] VITALS: BP 92/50; TEMP 96.9; O2SAT 99
[2024-03-18] MEDS: ACETAMINOPHEN *IV* 1,000 MG in IV 1 EA IV ONE (15:00)
[2024-03-18] MEDS: AMINO AC/ELECTROLYTE/DEX/CALC 2,000 ML IV SCH (18:36)
[2024-03-18] MEDS: FAT EMULSION IV 250 ML IV ONE (18:36)
[2024-03-18] MEDS: INSULIN LISPRO (NovoLOG) PER UNIT SC SCH (18:54)
[2024-03-18 19:40] VITALS: BP 103/58; TEMP 96.9; O2SAT 98
[2024-03-18] MEDS: BISACODYL 10MG SUPP PR SCH (20:20)
[2024-03-18 23:53] VITALS: BP 102/58; TEMP 97.7; O2SAT 97
[2024-03-19 05:46] LABS: ALBUMIN 1.9 G/DL (3.2-5.2); BILIRUBIN,DIRECT 0.1 MG/DL (<0.4); BILIRUBIN,TOTAL 0.3 MG/DL (0.3-1.2); TOTAL PROTEIN 5.5 G/DL (5.7-8.2)
[2024-03-19 07:20] LABS: HEMOGLOBIN 9.6 g/dl (12.0-15.5); MEAN CORPUSCULAR HEMOGLOBIN 31.5 pg (27.0-33.0); MEAN CORPUSCULAR HGB CONC 33.1 g/dl (32.0-36.5); MEAN CORPUSCULAR VOLUME 95.1 fl (80.0-96.0); PLATELET COUNT, AUTOMATED 849 10^3/uL (150-450); RED BLOOD COUNT 3.05 10^6/uL (4.00-5.40); WHITE BLOOD COUNT 11.5 10^3/uL (4.0-10.0)
[2024-03-19] MEDS ORDERED: MAG SULF 1GM/100ML (MAG RUN) 1 GM in IV 1 EA IV SCH (07:35)
[2024-03-19 07:49] VITALS: BP 98/54; TEMP 97.4; O2SAT 97
[2024-03-19 08:18] LABS: MAGNESIUM LEVEL 1.8 MG/DL (1.8-2.4)
[2024-03-19 08:22] LABS: FERRITIN 506.7 NG/ML (7.3-270.7)
[2024-03-19 08:26] LABS: HYPOCHROMASIA 1+; LYMPHOCYTES 20 % (16-44); MONOCYTES 3 % (0-5); NEUTROPHILS 77 % (28-66)
[2024-03-19 08:28] LABS: ANISOCYTOSIS 1+; POIKILOCYTOSIS 1+
[2024-03-19 08:29] LABS: PLATELET ESTIMATE INCREASED (NORMAL)
[2024-03-19] MEDS: DOCUSATE SOD LIQ 100MG/10ML UDC GT SCH (09:02)
[2024-03-19 09:10] VITALS: BP 102/60
[2024-03-19 10:28] LABS: PERCENT SATURATION 6.1 % (13.2-45.0)
[2024-03-19 15:35] VITALS: BP 110/69; TEMP 97.1; O2SAT 97
[2024-03-19] MEDS: FAT EMULSION IV 250 ML IV ONE (18:44)
[2024-03-19] MEDS: MULTIVITAMIN -ADULT INJECTION 10 ML, ZINC/COPPER/MANGANESE/SELENIUM 1 ML in AMINO AC/EL... IV SCH (18:44)
[2024-03-19] MEDS: INSULIN LISPRO (NovoLOG) PER UNIT SC SCH (19:09)
[2024-03-19 19:41] VITALS: BP 118/72; TEMP 97.2; O2SAT 98
[2024-03-20 03:37] VITALS: BP 98/54; TEMP 97.3; O2SAT 95
[2024-03-20] MEDS ORDERED: DICYCLOMINE 10 MG CAP PO ONE (04:40)
[2024-03-20] MEDS: DICYCLOMINE INJ 20MG/2ML IM ONE (06:00)
[2024-03-20 07:21] LABS: BASO # 0.1 10^3/uL (0.0-0.2); BASO % 0.6 % (0.0-1.0); EOS # 0.1 10^3/uL (0.0-0.5); EOS % 0.7 % (0.0-3.0); HEMATOCRIT 30.2 % (36.0-47.0); HEMOGLOBIN 10.1 g/dl (12.0-15.5); LYMPH # 2.1 10^3/uL (1.5-5.0); LYMPH % 16.8 % (24.0-44.0); MEAN CORPUSCULAR HEMOGLOBIN 31.7 pg (27.0-33.0); MEAN CORPUSCULAR HGB CONC 33.4 g/dl (32.0-36.5); MEAN CORPUSCULAR VOLUME 94.7 fl (80.0-96.0); MONO # 0.7 10^3/uL (0.0-0.8); MONO % 5.5 % (2.0-8.0); NEUTROPHILS # 9.4 10^3/uL (1.5-8.5); NEUTROPHILS % 75.4 % (36.0-66.0); PLATELET COUNT, AUTOMATED 809 10^3/uL (150-450); RED BLOOD COUNT 3.19 10^6/uL (4.00-5.40); WHITE BLOOD COUNT 12.4 10^3/uL (4.0-10.0)
[2024-03-20 07:49] LABS: BLOOD UREA NITROGEN 14 MG/DL (9-23); CALCIUM LEVEL 8.5 MG/DL (8.5-10.1); CARBON DIOXIDE LEVEL 27 MMOL/L (20-31); CHLORIDE LEVEL 99 MMOL/L (98-107); CREATININE FOR GFR 0.42 MG/DL (0.55-1.30); GLOMERULAR FILTRATION RATE > 60.0 (>58); GLUCOSE, FASTING 118 MG/DL (60-100); POTASSIUM SERUM 4.7 MMOL/L (3.5-5.1); SODIUM LEVEL 132 MMOL/L (136-145)
[2024-03-20 08:10] VITALS: BP 106/82; TEMP 97.1; O2SAT 98
[2024-03-20] MEDS ORDERED: DICYCLOMINE INJ 20MG/2ML IM PRN (09:55)
[2024-03-20] MEDS: MAGNESIUM CITRATE 300ML BTL NG ONE (10:46)
[2024-03-20 11:33] VITALS: BP 126/80; TEMP 97.9; O2SAT 99
[2024-03-20] MEDS: BISACODYL ENEMA 10MG/30ML PR ONE (12:39)
[2024-03-20 14:33] VITALS: BP 122/79; TEMP 97.3; O2SAT 95
[2024-03-20] MEDS: INSULIN LISPRO (NovoLOG) PER UNIT SC SCH (18:00)
[2024-03-20] MEDS: AMINO AC/ELECTROLYTE/DEX/CALC 2,000 ML IV SCH (18:19)
[2024-03-20] MEDS: FAT EMULSION IV 250 ML IV ONE (18:19)
[2024-03-20] MEDS: ACETAMINOPHEN *IV* 1,000 MG in IV 1 EA IV PRN (18:31)
[2024-03-20 19:32] VITALS: BP 116/79; TEMP 97.5; O2SAT 97
[2024-03-20] MEDS: DICYCLOMINE 10 MG CAP PO PRN (21:18)
[2024-03-21 05:05] VITALS: BP 116/80; TEMP 97.7; O2SAT 96
[2024-03-21 05:58] LABS: BASO # 0.1 10^3/uL (0.0-0.2); BASO % 0.9 % (0.0-1.0); EOS # 0.1 10^3/uL (0.0-0.5); HEMATOCRIT 31.9 % (36.0-47.0); HEMOGLOBIN 10.4 g/dl (12.0-15.5); LYMPH # 1.7 10^3/uL (1.5-5.0); LYMPH % 14.6 % (24.0-44.0); MEAN CORPUSCULAR HEMOGLOBIN 31.3 pg (27.0-33.0); MEAN CORPUSCULAR HGB CONC 32.6 g/dl (32.0-36.5); MEAN CORPUSCULAR VOLUME 96.1 fl (80.0-96.0); MONO # 0.7 10^3/uL (0.0-0.8); MONO % 6.3 % (2.0-8.0); NEUTROPHILS # 8.8 10^3/uL (1.5-8.5); NEUTROPHILS % 76.3 % (36.0-66.0); PLATELET COUNT, AUTOMATED 797 10^3/uL (150-450); RED BLOOD COUNT 3.32 10^6/uL (4.00-5.40); WHITE BLOOD COUNT 11.5 10^3/uL (4.0-10.0)
[2024-03-21 06:11] LABS: BLOOD UREA NITROGEN 17 MG/DL (9-23); CALCIUM LEVEL 8.9 MG/DL (8.5-10.1); CARBON DIOXIDE LEVEL 27 MMOL/L (20-31); CHLORIDE LEVEL 98 MMOL/L (98-107); CREATININE FOR GFR 0.44 MG/DL (0.55-1.30); GLOMERULAR FILTRATION RATE > 60.0 (>58); GLUCOSE, FASTING 122 MG/DL (60-100); MAGNESIUM LEVEL 1.8 MG/DL (1.8-2.4); POTASSIUM SERUM 4.8 MMOL/L (3.5-5.1); SODIUM LEVEL 133 MMOL/L (136-145)
[2024-03-21] MEDS: BISACODYL ENEMA 10MG/30ML PR ONE (10:24)
[2024-03-21 14:28] VITALS: BP 108/78; TEMP 97.5; O2SAT 97
[2024-03-21] MEDS: INSULIN LISPRO (NovoLOG) PER UNIT SC SCH (17:30)
[2024-03-21] MEDS: FAT EMULSION IV 250 ML IV ONE (17:47)
[2024-03-21] MEDS: MULTIVITAMIN -ADULT INJECTION 10 ML, ZINC/COPPER/MANGANESE/SELENIUM 1 ML in AMINO AC/EL... IV SCH (17:47)
[2024-03-21 21:22] VITALS: BP 108/78; TEMP 97.7; O2SAT 98
[2024-03-22 02:40] VITALS: BP 112/72
[2024-03-22 05:59] VITALS: BP 111/72; TEMP 97.7; O2SAT 98
[2024-03-22 06:48] LABS: BASO # 0.1 10^3/uL (0.0-0.2); EOS # 0.1 10^3/uL (0.0-0.5); EOS % 1.3 % (0.0-3.0); HEMATOCRIT 33.5 % (36.0-47.0); HEMOGLOBIN 10.9 g/dl (12.0-15.5); LYMPH # 1.8 10^3/uL (1.5-5.0); LYMPH % 18.3 % (24.0-44.0); MEAN CORPUSCULAR HEMOGLOBIN 31.1 pg (27.0-33.0); MEAN CORPUSCULAR HGB CONC 32.5 g/dl (32.0-36.5); MEAN CORPUSCULAR VOLUME 95.7 fl (80.0-96.0); MONO # 0.6 10^3/uL (0.0-0.8); MONO % 5.9 % (2.0-8.0); NEUTROPHILS # 7.1 10^3/uL (1.5-8.5); NEUTROPHILS % 72.3 % (36.0-66.0); PLATELET COUNT, AUTOMATED 731 10^3/uL (150-450); WHITE BLOOD COUNT 9.8 10^3/uL (4.0-10.0)
[2024-03-22 07:02] LABS: BLOOD UREA NITROGEN 19 MG/DL (9-23); CALCIUM LEVEL 8.7 MG/DL (8.5-10.1); CARBON DIOXIDE LEVEL 27 MMOL/L (20-31); CHLORIDE LEVEL 100 MMOL/L (98-107); CREATININE FOR GFR 0.47 MG/DL (0.55-1.30); GLOMERULAR FILTRATION RATE > 60.0 (>58); GLUCOSE, FASTING 116 MG/DL (60-100); MAGNESIUM LEVEL 1.7 MG/DL (1.8-2.4); POTASSIUM SERUM 5.2 MMOL/L (3.5-5.1); SODIUM LEVEL 135 MMOL/L (136-145)
[2024-03-22] MEDS: MAGNESIUM CITRATE 300ML BTL NG ONE (08:59)
[2024-03-22] MEDS: PATIROMER SORBITEX CALCIUM 8.4 GM POWDER PACKET (VELTASSA) PO STA (08:59)
[2024-03-22] MEDS: MAG SULF 1GM/100ML (MAG RUN) 1 GM in IV 1 EA IV SCH (08:59)
[2024-03-22] MEDS: PERCOCET 5MG/325MG TAB PO PRN (13:00)
[2024-03-22] MEDS: AMINO AC/ELECTROLYTE/DEX/CALC 2,000 ML IV SCH (13:02)
[2024-03-22 14:00] VITALS: BP 112/69; TEMP 97.6; O2SAT 97
[2024-03-22 14:07] LABS: INR 1.1; PROTHROMBIN TIME 13.9 SECONDS (12.5-14.5)
[2024-03-22] MEDS: WARFARIN SOD 3MG TAB PO SCH (16:37)
[2024-03-22] MEDS: INSULIN LISPRO (NovoLOG) PER UNIT SC SCH (17:44)
[2024-03-22] MEDS: FAT EMULSION IV 250 ML IV ONE (17:51)
[2024-03-22 21:49] VITALS: BP 107/67; TEMP 98.1; O2SAT 98
[2024-03-23 06:00] VITALS: BP 102/61; TEMP 97.7; O2SAT 93
[2024-03-23] MEDS: ACETAMINOPHEN *IV* 1,000 MG in IV 1 EA IV PRN (06:21)
[2024-03-23 06:49] LABS: BASO # 0.1 10^3/uL (0.0-0.2); BASO % 0.8 % (0.0-1.0); EOS # 0.2 10^3/uL (0.0-0.5); EOS % 1.7 % (0.0-3.0); HEMATOCRIT 31.4 % (36.0-47.0); HEMOGLOBIN 10.1 g/dl (12.0-15.5); LYMPH # 1.8 10^3/uL (1.5-5.0); LYMPH % 18.7 % (24.0-44.0); MEAN CORPUSCULAR HEMOGLOBIN 30.9 pg (27.0-33.0); MEAN CORPUSCULAR HGB CONC 32.2 g/dl (32.0-36.5); MONO # 0.5 10^3/uL (0.0-0.8); MONO % 5.7 % (2.0-8.0); NEUTROPHILS # 6.9 10^3/uL (1.5-8.5); NEUTROPHILS % 72.5 % (36.0-66.0); PLATELET COUNT, AUTOMATED 612 10^3/uL (150-450); RED BLOOD COUNT 3.27 10^6/uL (4.00-5.40); WHITE BLOOD COUNT 9.5 10^3/uL (4.0-10.0)
[2024-03-23 06:51] LABS: INR 1.05; PROTHROMBIN TIME 13.4 SECONDS (12.5-14.5)
[2024-03-23 07:15] LABS: BLOOD UREA NITROGEN 18 MG/DL (9-23); CALCIUM LEVEL 8.5 MG/DL (8.5-10.1); CARBON DIOXIDE LEVEL 27 MMOL/L (20-31); CHLORIDE LEVEL 99 MMOL/L (98-107); CREATININE FOR GFR 0.51 MG/DL (0.55-1.30); GLOMERULAR FILTRATION RATE > 60.0 (>58); GLUCOSE, FASTING 112 MG/DL (60-100); MAGNESIUM LEVEL 1.7 MG/DL (1.8-2.4); POTASSIUM SERUM 4.7 MMOL/L (3.5-5.1); SODIUM LEVEL 133 MMOL/L (136-145)
[2024-03-23] MEDS: MAG SULF 1GM/100ML (MAG RUN) 1 GM in IV 1 EA IV ONE (09:42)
[2024-03-23] MEDS: MIRALAX *UNIT DOSE* 17GM PACKET PO SCH (09:42)
[2024-03-23 14:00] VITALS: BP 121/69; TEMP 97.5; O2SAT 99
[2024-03-23] MEDS: INSULIN LISPRO (NovoLOG) PER UNIT SC SCH (17:31)
[2024-03-23] MEDS: AMINO AC/ELECTROLYTE/DEX/CALC 2,000 ML IV SCH (17:46)
[2024-03-23] MEDS: FAT EMULSION IV 250 ML IV ONE (17:46)
[2024-03-23 22:00] VITALS: BP 108/60; TEMP 97.9; O2SAT 96
[2024-03-24 06:00] VITALS: BP 90/58; TEMP 97.1; O2SAT 96
[2024-03-24 09:26] LABS: HEMATOCRIT 30.9 % (36.0-47.0); HEMOGLOBIN 10.1 g/dl (12.0-15.5); MEAN CORPUSCULAR HEMOGLOBIN 31.4 pg (27.0-33.0); MEAN CORPUSCULAR HGB CONC 32.7 g/dl (32.0-36.5); PLATELET COUNT, AUTOMATED 587 10^3/uL (150-450); RED BLOOD COUNT 3.22 10^6/uL (4.00-5.40); WHITE BLOOD COUNT 8.9 10^3/uL (4.0-10.0)
[2024-03-24 09:46] LABS: INR 1.15; PROTHROMBIN TIME 14.4 SECONDS (12.5-14.5)
[2024-03-24 09:53] LABS: BLOOD UREA NITROGEN 16 MG/DL (9-23); CALCIUM LEVEL 8.4 MG/DL (8.5-10.1); CARBON DIOXIDE LEVEL 28 MMOL/L (20-31); CHLORIDE LEVEL 102 MMOL/L (98-107); CREATININE FOR GFR 0.53 MG/DL (0.55-1.30); GLOMERULAR FILTRATION RATE > 60.0 (>58); GLUCOSE, FASTING 100 MG/DL (60-100); MAGNESIUM LEVEL 1.7 MG/DL (1.8-2.4); POTASSIUM SERUM 4.7 MMOL/L (3.5-5.1); SODIUM LEVEL 135 MMOL/L (136-145)
[2024-03-24 10:01] LABS: ATYPICAL LYMPH 5 % (0-5); BASOPHILS 1 % (0-1); EOSINOPHILS 4 % (0-3); LYMPHOCYTES 22 % (16-44); MONOCYTES 2 % (0-5); NEUTROPHILS 63 % (28-66)
[2024-03-24 10:04] LABS: PLATELET ESTIMATE INCREASED (NORMAL)
[2024-03-24 14:00] VITALS: BP 110/69; TEMP 97.7; O2SAT 96
[2024-03-24] MEDS: WARFARIN SOD 1MG TAB PO ONE (16:47)
[2024-03-24 19:52] VITALS: BP 96/62; TEMP 97.7; O2SAT 95
[2024-03-25 06:38] VITALS: BP 107/64; TEMP 97.5; O2SAT 99
[2024-03-25 06:57] LABS: BASO # 0.1 10^3/uL (0.0-0.2); EOS # 0.3 10^3/uL (0.0-0.5); EOS % 3.9 % (0.0-3.0); HEMATOCRIT 29.6 % (36.0-47.0); HEMOGLOBIN 9.6 g/dl (12.0-15.5); LYMPH # 1.7 10^3/uL (1.5-5.0); LYMPH % 25.4 % (24.0-44.0); MEAN CORPUSCULAR HEMOGLOBIN 31.2 pg (27.0-33.0); MEAN CORPUSCULAR HGB CONC 32.4 g/dl (32.0-36.5); MEAN CORPUSCULAR VOLUME 96.1 fl (80.0-96.0); MONO # 0.5 10^3/uL (0.0-0.8); MONO % 6.8 % (2.0-8.0); NEUTROPHILS # 4.2 10^3/uL (1.5-8.5); NEUTROPHILS % 62.3 % (36.0-66.0); PLATELET COUNT, AUTOMATED 497 10^3/uL (150-450); RED BLOOD COUNT 3.08 10^6/uL (4.00-5.40); WHITE BLOOD COUNT 6.7 10^3/uL (4.0-10.0)
[2024-03-25 07:02] LABS: INR 1.13; PROTHROMBIN TIME 14.2 SECONDS (12.5-14.5)
[2024-03-25 07:10] LABS: BLOOD UREA NITROGEN 16 MG/DL (9-23); CALCIUM LEVEL 8.6 MG/DL (8.5-10.1); CARBON DIOXIDE LEVEL 27 MMOL/L (20-31); CHLORIDE LEVEL 104 MMOL/L (98-107); CREATININE FOR GFR 0.53 MG/DL (0.55-1.30); GLOMERULAR FILTRATION RATE > 60.0 (>58); GLUCOSE, FASTING 99 MG/DL (60-100); MAGNESIUM LEVEL 1.6 MG/DL (1.8-2.4); POTASSIUM SERUM 4.5 MMOL/L (3.5-5.1); SODIUM LEVEL 136 MMOL/L (136-145)
[2024-03-25] MEDS: MAG SULF 1GM/100ML (MAG RUN) 1 GM in IV 1 EA IV SCH (08:37)
[2024-03-25] MEDS ORDERED: LOVE0.6I2 SC (10:13)
[2024-03-25] MEDS ORDERED: PERCOCET PO (10:13)
[2024-03-25] MEDS ORDERED: DOCU5LIQ PO (10:13)
[2024-03-25] MEDS ORDERED: SUCR1TA PO (10:13)
[2024-03-25 17:21] VITALS: BP 100/59; TEMP 97.3; O2SAT 96
== END 2024-03-25 14:20 | disposition home health service (06) | DRG 710 ==
LOC: M ED 10:03 → M ED INP 19:02 → M MS5PR 21:25 → M PCU 03-14 08:49 → M MS5PR 03-20 11:16
PROVIDERS: ADMIT Internal Medicine Nephrology; ATTEND Internal Medicine
PROC: 0D1N0Z4 Bypass Sigmoid Colon to Cutaneous, Open Approach (ICD-10-PCS; 2024-03-05)
PROC: 0W9J30Z Drainage of Pelvic Cavity with Drainage Device, Percutaneous Approach (ICD-10-PCS; 2024-03-05)
PROC: 0DTN0ZZ Resection of Sigmoid Colon, Open Approach (ICD-10-PCS; principal; 2024-03-05 13:28)
PROC: 30233N1 Transfusion of Nonautologous Red Blood Cells into Peripheral Vein, Percutaneous Approach (ICD-10-PCS; 2024-03-12)
PROC: 0W9G3ZZ Drainage of Peritoneal Cavity, Percutaneous Approach (ICD-10-PCS; 2024-03-14)
DX: A41.9 Sepsis, unspecified organism (principal); K63.1 Perforation of intestine (nontraumatic); J90 Pleural effusion, not elsewhere classified; K65.9 Peritonitis, unspecified; B37.0 Candidal stomatitis; D68.61 Antiphospholipid syndrome; M32.9 Systemic lupus erythematosus, unspecified; D62 Acute posthemorrhagic anemia; E83.42 Hypomagnesemia; F11.20 Opioid dependence, uncomplicated; K56.7 Ileus, unspecified; K50.118 Crohn's disease of large intestine with other complication; F17.200 Nicotine dependence, unspecified, uncomplicated; G89.29 Other chronic pain; J45.20 Mild intermittent asthma, uncomplicated; J98.11 Atelectasis; K57.30 Diverticulosis of large intestine without perforation or abscess without bleeding; K59.00 Constipation, unspecified; L40.9 Psoriasis, unspecified; M47.812 Spondylosis without myelopathy or radiculopathy, cervical region; M47.816 Spondylosis without myelopathy or radiculopathy, lumbar region; M79.7 Fibromyalgia; Z79.01 Long term (current) use of anticoagulants; F41.9 Anxiety disorder, unspecified; F32.A Depression, unspecified; Z86.718 Personal history of other venous thrombosis and embolism; Z86.711 Personal history of pulmonary embolism; Z88.5 Allergy status to narcotic agent; Z88.8 Allergy status to other drugs, medicaments and biological substances; Z91.030 Bee allergy status; Z79.899 Other long term (current) drug therapy; Z86.16 Personal history of COVID-19; J18.9 Pneumonia, unspecified organism; K21.9 Gastro-esophageal reflux disease without esophagitis

== ENCOUNTER → 2024-03-27 | Outpatient (REF) | payer OTHER ==
[~2024-03-27] MED LIST changes: +ALBU2.5V10 INH; +BACL5TAB2 PO; +BISA5TAB15 PO; +BUPR-69 PO; +CHOL4PW PO; +DOCU5LIQ PO; +EPIPENSY SC; +FAMO40TA3 PO; +FERR324T21 PO; +LOVE0.6I2 SC; +MAGN400T2 PO; +MECL-136 PO; +MIRA3350 PO; +NORT25CA2 PO; +OMEP-406 PO; +OMEP40CA5 PO; +POTA-141 PO; +SPIR50TA4 PO; +SUCR1TA PO; +TIZA10TA PO; +TIZA4CAP3 PO
[2024-03-27 17:20] LABS: INR 1.27; PROTHROMBIN TIME 15.5 SECONDS (12.5-14.5)
== END ==
LOC: M LABDRWAD 16:50
PROVIDERS: ATTEND Internal Medicine
DX: D68.61 Antiphospholipid syndrome (principal)

== ENCOUNTER → 2024-03-31 | Outpatient (CLI) | payer OTHER ==
[~2024-03-31] MED LIST changes: +ONDA-282 PO; -ONDA4TAB6 PO
[2024-03-31 15:51] LABS: BASO % 0.5 % (0.0-1.0); EOS # 0.2 10^3/uL (0.0-0.5); EOS % 2.7 % (0.0-3.0); HEMATOCRIT 32.4 % (36.0-47.0); HEMOGLOBIN 10.5 g/dl (12.0-15.5); LYMPH # 2.7 10^3/uL (1.5-5.0); LYMPH % 31.6 % (24.0-44.0); MEAN CORPUSCULAR HEMOGLOBIN 31.3 pg (27.0-33.0); MEAN CORPUSCULAR HGB CONC 32.4 g/dl (32.0-36.5); MEAN CORPUSCULAR VOLUME 96.4 fl (80.0-96.0); MONO # 0.5 10^3/uL (0.0-0.8); MONO % 5.8 % (2.0-8.0); PLATELET COUNT, AUTOMATED 464 10^3/uL (150-450); RED BLOOD COUNT 3.36 10^6/uL (4.00-5.40); WHITE BLOOD COUNT 8.4 10^3/uL (4.0-10.0)
[2024-03-31 16:02] LABS: ERYTHROCYTE SEDIMENTATION RATE 36 mm/hr (0-20)
[2024-03-31 16:05] LABS: INR 1.82; PROTHROMBIN TIME 20.4 SECONDS (12.5-14.5)
[2024-03-31 16:34] LABS: ALKALINE PHOSPHATASE 118 U/L (46-116); ALT/SGPT 19 U/L (7.0-40); AST/SGOT 10 U/L (<34); BILIRUBIN,TOTAL 0.3 MG/DL (0.3-1.2); BLOOD UREA NITROGEN 13 MG/DL (9-23); CALCIUM LEVEL 8.5 MG/DL (8.5-10.1); CARBON DIOXIDE LEVEL 25 MMOL/L (20-31); CHLORIDE LEVEL 105 MMOL/L (98-107); CREATININE FOR GFR 0.54 MG/DL (0.55-1.30); GLOMERULAR FILTRATION RATE > 60.0 (>58); GLUCOSE, FASTING 88 MG/DL (60-100); POTASSIUM SERUM 3.8 MMOL/L (3.5-5.1); SODIUM LEVEL 138 MMOL/L (136-145); TOTAL PROTEIN 6.2 G/DL (5.7-8.2)
== END ==
LOC: M LAB 15:06
PROVIDERS: ATTEND Family Medicine
DX: D68.62 Lupus anticoagulant syndrome (principal); K63.1 Perforation of intestine (nontraumatic)

== ENCOUNTER → 2024-04-03 | Outpatient (CLI) | payer OTHER ==
[2024-04-03 12:37] LABS: BASO % 0.6 % (0.0-1.0); EOS # 0.3 10^3/uL (0.0-0.5); EOS % 4.2 % (0.0-3.0); HEMATOCRIT 33.3 % (36.0-47.0); HEMOGLOBIN 10.8 g/dl (12.0-15.5); LYMPH # 2.1 10^3/uL (1.5-5.0); LYMPH % 30.8 % (24.0-44.0); MEAN CORPUSCULAR HEMOGLOBIN 31.9 pg (27.0-33.0); MEAN CORPUSCULAR HGB CONC 32.4 g/dl (32.0-36.5); MEAN CORPUSCULAR VOLUME 98.2 fl (80.0-96.0); MONO # 0.4 10^3/uL (0.0-0.8); MONO % 5.5 % (2.0-8.0); NEUTROPHILS % 58.6 % (36.0-66.0); PLATELET COUNT, AUTOMATED 493 10^3/uL (150-450); RED BLOOD COUNT 3.39 10^6/uL (4.00-5.40); WHITE BLOOD COUNT 6.9 10^3/uL (4.0-10.0)
[2024-04-03 12:38] LABS: MAGNESIUM LEVEL 1.6 MG/DL (1.8-2.4)
[2024-04-03 12:42] LABS: FERRITIN 184.7 NG/ML (7.3-270.7)
== END ==
LOC: M PLALAB 10:10
PROVIDERS: ATTEND Physician Assistant Medical
DX: D62 Acute posthemorrhagic anemia (principal); E83.42 Hypomagnesemia; J90 Pleural effusion, not elsewhere classified

== ENCOUNTER → 2024-04-03 | Outpatient (CLI) | payer OTHER ==
[2024-04-03 13:00] LABS: INR 2.13; PROTHROMBIN TIME 23.1 SECONDS (12.5-14.5)
== END ==
LOC: M PLALAB 10:13
PROVIDERS: ATTEND Family Medicine
DX: D68.62 Lupus anticoagulant syndrome (principal)

== ENCOUNTER → 2024-04-05 | Outpatient (REF) | payer OTHER ==
[2024-04-05 18:41] LABS: APPEARANCE, URINE HAZY (CLEAR); BACTERIA, URINE AUTO NEGATIVE (NEGATIVE); BILIRUBIN, URINE AUTO 2+ (NEGATIVE); BLOOD, URINE BLOOD 2+ (NEGATIVE); CALCIUM OXALATE CRYSTALS SMALL; COLOR, URINE AMBER (YELLOW); GLUCOSE, URINE (UA) AUTO NEGATIVE (NEGATIVE); KETONE, URINE AUTO TRACE mg/dL (NEGATIVE); LEUKOCYTE ESTERASE, URINE AUTO NEGATIVE (NEGATIVE); MUCUS, URINE SMALL (NEGATIVE); NITRITE, URINE AUTO NEGATIVE (NEGATIVE); PROTEIN, URINE AUTO 2+ mg/dL (NEGATIVE); RBC, URINE AUTO 53 /HPF (0-3); SPECIFIC GRAVITY URINE AUTO 1.033 (1.002-1.035); SQUAMOUS EPITHELIAL CELL UR AU 12 /HPF (0-6); WBC, URINE AUTO 4 /HPF (0-3)
== END ==
LOC: M LAB REF 17:21
PROVIDERS: ATTEND Physician Assistant Medical
DX: N39.0 Urinary tract infection, site not specified (principal)

== ENCOUNTER 2024-04-12 06:24 | Emergency (ER) | payer OTHER ==
[~2024-04-12] VITALS: Ht 165.1 cm; Wt 60.6 kg
[2024-04-12 06:25] VITALS: TEMP 97.5
[2024-04-12] MEDS: NS 1,000 ML IV ONE (07:27)
[2024-04-12] MEDS: ONDANSETRON 4MG 2ML VIAL IV ONE (07:28)
[2024-04-12 07:32] LABS: HEMATOCRIT 36.7 % (36.0-47.0); HEMOGLOBIN 11.9 g/dl (12.0-15.5); MEAN CORPUSCULAR HEMOGLOBIN 31.9 pg (27.0-33.0); MEAN CORPUSCULAR HGB CONC 32.4 g/dl (32.0-36.5); MEAN CORPUSCULAR VOLUME 98.4 fl (80.0-96.0); PLATELET COUNT, AUTOMATED 535 10^3/uL (150-450); RED BLOOD COUNT 3.73 10^6/uL (4.00-5.40); WHITE BLOOD COUNT 8.3 10^3/uL (4.0-10.0)
[2024-04-12 08:03] LABS: ATYPICAL LYMPH 1 % (0-5); EOSINOPHILS 4 % (0-3); LYMPHOCYTES 41 % (16-44); MONOCYTES 2 % (0-5); NEUTROPHILS 52 % (28-66)
[2024-04-12 08:04] LABS: PLATELET CLUMPS SMALL AMT; PLATELET ESTIMATE INCREASED (NORMAL)
[2024-04-12 08:05] LABS: ALBUMIN 2.9 G/DL (3.2-5.2); ALKALINE PHOSPHATASE 106 U/L (46-116); ALT/SGPT 10 U/L (7.0-40); ANISOCYTOSIS 1+; AST/SGOT < 8 U/L (<34); BILIRUBIN,DIRECT < 0.1 MG/DL (<0.4); BILIRUBIN,TOTAL 0.2 MG/DL (0.3-1.2); LIPASE 42 U/L (12-53); POIKILOCYTOSIS 1+; TOTAL PROTEIN 6.1 G/DL (5.7-8.2)
[2024-04-12 08:07] LABS: TEAR DROP CELLS 1+
[2024-04-12] MEDS ORDERED: ISOVUE-370 76% 100ML VIAL As Ordered ONE (08:09)
[2024-04-12 08:42] LABS: INR 3.27; PARTIAL THROMBOPLASTIN TIME 50.4 SECONDS (24.8-34.2); PROTHROMBIN TIME 32.1 SECONDS (12.5-14.5)
[2024-04-12] MEDS: NS 500 ML IV ONE (08:42)
[2024-04-12] MEDS: fentaNYL 100 MCG/2 ML INJECTION IV ONE (08:43)
[2024-04-12 09:15] VITALS: BP 95/55; O2SAT 100
[2024-04-12] MEDS: PERCOCET 5MG/325MG TAB PO ONE (10:27)
== END 2024-04-12 10:52 | disposition home or self-care (01) ==
LOC: M ED 06:24
DX: G89.18 Other acute postprocedural pain (principal); K91.872 Postprocedural seroma of a digestive system organ or structure following a digestive system procedure; N83.291 Other ovarian cyst, right side; K58.9 Irritable bowel syndrome, unspecified; H81.4 Vertigo of central origin; M32.9 Systemic lupus erythematosus, unspecified; K21.9 Gastro-esophageal reflux disease without esophagitis; K27.9 Peptic ulcer, site unspecified, unspecified as acute or chronic, without hemorrhage or perforation; K57.92 Diverticulitis of intestine, part unspecified, without perforation or abscess without bleeding; Q07.00 Arnold-Chiari syndrome without spina bifida or hydrocephalus; F17.200 Nicotine dependence, unspecified, uncomplicated; Z87.442 Personal history of urinary calculi; Z86.711 Personal history of pulmonary embolism; Z86.718 Personal history of other venous thrombosis and embolism; Z88.5 Allergy status to narcotic agent; Z88.8 Allergy status to other drugs, medicaments and biological substances; Z91.030 Bee allergy status; Z79.52 Long term (current) use of systemic steroids; Z79.83 Long term (current) use of bisphosphonates; Z79.810 Long term (current) use of selective estrogen receptor modulators (SERMs); Z79.899 Other long term (current) drug therapy; Z93.3 Colostomy status
CPT/HCPCS: 74021; 74177; 80047; 80076; 83605; 83690; 85025; 85610; 85730; 87040; 93005; 93041; 96361; 96374; 96375; 99284; J2405; J3010; Q9967

== ENCOUNTER → 2024-04-24 | Outpatient (REF) | payer OTHER | LOC: M SFHCPLAZ 14:59 | PROVIDERS: ATTEND Internal Medicine Infectious Disease | DX: L02.211 Cutaneous abscess of abdominal wall (principal) ==

== ENCOUNTER 2024-07-03 14:11 | Emergency (ER) | payer OTHER ==
[~2024-07-03] VITALS: Ht 165.1 cm; Wt 69.3 kg
[2024-07-03] MEDS: NS 500 ML IV ONE (15:19)
[2024-07-03] MEDS ORDERED: OXYC7.5T3 (15:34)
[2024-07-03 15:36] LABS: HEMATOCRIT 35.9 % (36.0-47.0); HEMOGLOBIN 11.9 g/dl (12.0-15.5); INR 1.67; MEAN CORPUSCULAR HEMOGLOBIN 31.4 pg (27.0-33.0); MEAN CORPUSCULAR HGB CONC 33.1 g/dl (32.0-36.5); MEAN CORPUSCULAR VOLUME 94.7 fl (80.0-96.0); PARTIAL THROMBOPLASTIN TIME 35.4 SECONDS (24.8-34.2); PLATELET COUNT, AUTOMATED 397 10^3/uL (150-450); PROTHROMBIN TIME 19.1 SECONDS (12.5-14.5); RED BLOOD COUNT 3.79 10^6/uL (4.00-5.40); WHITE BLOOD COUNT 6.2 10^3/uL (4.0-10.0)
[2024-07-03 15:44] LABS: BLOOD UREA NITROGEN 11 MG/DL (9-23); CALCIUM LEVEL 8.5 MG/DL (8.5-10.1); CARBON DIOXIDE LEVEL 28 MMOL/L (20-31); CHLORIDE LEVEL 109 MMOL/L (98-107); GLOMERULAR FILTRATION RATE > 60.0 (>58); GLUCOSE, FASTING 95 MG/DL (60-100); POTASSIUM SERUM 3.9 MMOL/L (3.5-5.1); SODIUM LEVEL 138 MMOL/L (136-145)
[2024-07-03 16:04] LABS: ATYPICAL LYMPH 2 % (0-5); EOSINOPHILS 2 % (0-3); LYMPHOCYTES 40 % (16-44); MONOCYTES 2 % (0-5); NEUTROPHILS 54 % (28-66); PLATELET ESTIMATE NORMAL (NORMAL)
[2024-07-03 16:05] LABS: ANISOCYTOSIS 1+; POIKILOCYTOSIS 1+
[2024-07-03 16:08] LABS: MICROCYTOSIS 1+
[2024-07-03] MEDS ORDERED: LIDOCAINE W/EPINEPHRINE 1% 20ML VIAL As Ordered ONE (16:09)
[2024-07-03] MEDS: HYDROMORPHONE HCL 0.5 MG/ 0.5 ML SYRINGE IV ONE (16:11)
[2024-07-03 17:00] VITALS: BP 102/57; TEMP 96.4; O2SAT 97
== END 2024-07-03 17:20 | disposition home or self-care (01) ==
LOC: M ED 14:11
DX: K91.840 Postprocedural hemorrhage of a digestive system organ or structure following a digestive system procedure (principal); M47.896 Other spondylosis, lumbar region; M79.7 Fibromyalgia; F43.10 Post-traumatic stress disorder, unspecified; F32.9 Major depressive disorder, single episode, unspecified; K21.9 Gastro-esophageal reflux disease without esophagitis; F17.200 Nicotine dependence, unspecified, uncomplicated; Z90.89 Acquired absence of other organs; Z79.01 Long term (current) use of anticoagulants; Z86.718 Personal history of other venous thrombosis and embolism; Z79.52 Long term (current) use of systemic steroids; Z79.83 Long term (current) use of bisphosphonates; Z79.899 Other long term (current) drug therapy; Z91.030 Bee allergy status; Z88.5 Allergy status to narcotic agent; Z88.8 Allergy status to other drugs, medicaments and biological substances
CPT/HCPCS: 80048; 85025; 85610; 85730; 86850; 86900; 86901; 93041; 94760; 96361; 96374; 99285; J1170

== ENCOUNTER 2024-07-20 11:38 | Inpatient (IN) | payer OTHER ==
[~2024-07-20] VITALS: Ht 165.1 cm; Wt 74.8 kg
[~2024-07-20 11:38] MED LIST changes: +OXYC7.5T3 PO
[2024-07-20 12:18] LABS: HEMOGLOBIN 11.4 g/dl (12.0-15.5); MEAN CORPUSCULAR HEMOGLOBIN 30.9 pg (27.0-33.0); MEAN CORPUSCULAR HGB CONC 32.6 g/dl (32.0-36.5); MEAN CORPUSCULAR VOLUME 94.9 fl (80.0-96.0); PLATELET COUNT, AUTOMATED 339 10^3/uL (150-450); RED BLOOD COUNT 3.69 10^6/uL (4.00-5.40); WHITE BLOOD COUNT 5.8 10^3/uL (4.0-10.0)
[2024-07-20 12:25] LABS: ERYTHROCYTE SEDIMENTATION RATE 13 mm/hr (0-20)
[2024-07-20 12:46] LABS: ANISOCYTOSIS 1+; BASOPHILS 1 % (0-1); EOSINOPHILS 2 % (0-3); LYMPHOCYTES 33 % (16-44); MONOCYTES 4 % (0-5); NEUTROPHILS 60 % (28-66); PLATELET ESTIMATE NORMAL (NORMAL)
[2024-07-20 12:50] LABS: ALBUMIN 3.6 G/DL (3.2-5.2); ALKALINE PHOSPHATASE 84 U/L (46-116); ALT/SGPT 11 U/L (7.0-40); AST/SGOT < 8 U/L (<34); BILIRUBIN,DIRECT < 0.1 MG/DL (<0.4); BILIRUBIN,TOTAL 0.2 MG/DL (0.3-1.2); BLOOD UREA NITROGEN 14 MG/DL (9-23); CALCIUM LEVEL 8.2 MG/DL (8.5-10.1); CARBON DIOXIDE LEVEL 23 MMOL/L (20-31); CHLORIDE LEVEL 113 MMOL/L (98-107); CREATININE FOR GFR 0.77 MG/DL (0.55-1.30); GLOMERULAR FILTRATION RATE > 60.0 (>58); GLUCOSE, FASTING 72 MG/DL (60-100); POTASSIUM SERUM 4.2 MMOL/L (3.5-5.1); SODIUM LEVEL 139 MMOL/L (136-145); TOTAL PROTEIN 6.5 G/DL (5.7-8.2)
[2024-07-20 13:02] LABS: PROCALCITONIN <0.04 ng/ml
[2024-07-20] MEDS ORDERED: ISOVUE-370 76% 100ML VIAL As Ordered ONE (16:34)
[2024-07-20] MEDS: NS 1,000 ML IV ONE (16:40)
[2024-07-20] MEDS: ONDANSETRON 4MG 2ML VIAL IV ONE (16:40)
[2024-07-20] MEDS: fentaNYL 100 MCG/2 ML INJECTION IV ONE (16:41)
[2024-07-20] MEDS: PIPERACILLIN/TAZOBACTAM SOD 3.375 GM in D5W MINI-BAG PLUS 50 ML IV SCH (20:01)
[2024-07-20] MEDS ORDERED: SENNA 8.6 MG TAB (SENOKOT) PO SCH (21:00)
[2024-07-20] MEDS ORDERED: SENN-188 PO (21:06)
[2024-07-20] MEDS ORDERED: POTA1TAB23 PO (21:06)
[2024-07-20] MEDS ORDERED: BUPR1TAB52 PO (21:06)
[2024-07-20] MEDS ORDERED: DOCU100T8 PO (21:07)
[2024-07-20] MEDS ORDERED: WARF-58 PO (21:09)
[2024-07-20] MEDS ORDERED: HOME MED LIST COMPLETE! XX SCH (21:10)
[2024-07-20] MEDS: VANCOMYCIN HCL 750 MG, VIAL MATE ADAPTER 1 EACH in D5W 250 ML IV SCH (21:24)
[2024-07-20] MEDS: DOCUSATE SODIUM 100MG CAPSULE PO SCH (21:24)
[2024-07-20] MEDS: NORCO, ANEXSIA 5/325MG TABLET (HYDROcodone/ACETAMINOPHEN) PO PRN (21:25)
[2024-07-20] MEDS ORDERED: ALBUTEROL SULFATE 2.5MG/0.5ML INH NEB SOLN INH PRN (21:35)
[2024-07-20] MEDS: DICYCLOMINE 10 MG CAP PO SCH (23:04)
[2024-07-20] MEDS: POTASSIUM CHLORIDE 10MEQ SR TABLET PO SCH (23:04)
[2024-07-20] MEDS: SENNA 8.6 MG TAB (SENOKOT) PO SCH (23:05)
[2024-07-20] MEDS: MAGNESIUM OXIDE 400MG TAB (MAG-OX) PO SCH (23:05)
[2024-07-20] MEDS: NORTRIPTYLINE 25 MG CAP PO SCH (23:45)
[2024-07-21 00:23] LABS: INR 1.84; PROTHROMBIN TIME 20.6 SECONDS (12.5-14.5)
[2024-07-21] MEDS: HYDROMORPHONE HCL 0.5 MG/ 0.5 ML SYRINGE IV PRN (01:06)
[2024-07-21] MEDS: WARFARIN SOD 3MG TAB PO SCH (01:13)
[2024-07-21] MEDS: PANTOPRAZOLE 40MG VIAL IV SCH (03:45)
[2024-07-21] MEDS ORDERED: VANCOMYCIN HCL 1,000 MG, VIAL MATE ADAPTER 1 EACH in D5W 250 ML IV SCH (04:00)
[2024-07-21] MEDS: VANCOMYCIN HCL 1,000 MG, VIAL MATE ADAPTER 1 EACH in D5W 250 ML IV SCH (05:08)
[2024-07-21 08:53] LABS: HEMATOCRIT 32.7 % (36.0-47.0); HEMOGLOBIN 10.7 g/dl (12.0-15.5); MEAN CORPUSCULAR HEMOGLOBIN 30.5 pg (27.0-33.0); MEAN CORPUSCULAR HGB CONC 32.7 g/dl (32.0-36.5); MEAN CORPUSCULAR VOLUME 93.2 fl (80.0-96.0); PLATELET COUNT, AUTOMATED 315 10^3/uL (150-450); RED BLOOD COUNT 3.51 10^6/uL (4.00-5.40); WHITE BLOOD COUNT 4.8 10^3/uL (4.0-10.0)
[2024-07-21 09:27] LABS: ALKALINE PHOSPHATASE 71 U/L (46-116); ALT/SGPT 11 U/L (7.0-40); AST/SGOT < 8 U/L (<34); BILIRUBIN,TOTAL 0.2 MG/DL (0.3-1.2); BLOOD UREA NITROGEN 8 MG/DL (9-23); CALCIUM LEVEL 7.7 MG/DL (8.5-10.1); CARBON DIOXIDE LEVEL 25 MMOL/L (20-31); CHLORIDE LEVEL 112 MMOL/L (98-107); CREATININE FOR GFR 0.72 MG/DL (0.55-1.30); GLOMERULAR FILTRATION RATE > 60.0 (>58); GLUCOSE, FASTING 76 MG/DL (60-100); POTASSIUM SERUM 4.6 MMOL/L (3.5-5.1); SODIUM LEVEL 138 MMOL/L (136-145); TOTAL PROTEIN 5.7 G/DL (5.7-8.2)
[2024-07-21] MEDS: buPROPion (WELLBUTRIN SR) 100 MG SR TAB PO SCH (12:06)
[2024-07-21] MEDS: NICOTINE 14 MG/24 HR TRANSDERMAL TD SCH (12:06)
[2024-07-21] MEDS: VANCOMYCIN HCL 750 MG, VIAL MATE ADAPTER 1 EACH in D5W 250 ML IV SCH (15:41)
[2024-07-21 16:45] VITALS: BP 97/60; TEMP 97.1; O2SAT 98
[2024-07-21 20:21] VITALS: BP 112/74; TEMP 97.3; O2SAT 98
[2024-07-22 04:01] VITALS: BP 93/55; TEMP 97.3; O2SAT 97
[2024-07-22 06:45] LABS: HEMATOCRIT 32.3 % (36.0-47.0); HEMOGLOBIN 10.5 g/dl (12.0-15.5); MEAN CORPUSCULAR HEMOGLOBIN 30.5 pg (27.0-33.0); MEAN CORPUSCULAR HGB CONC 32.5 g/dl (32.0-36.5); MEAN CORPUSCULAR VOLUME 93.9 fl (80.0-96.0); PLATELET COUNT, AUTOMATED 313 10^3/uL (150-450); RED BLOOD COUNT 3.44 10^6/uL (4.00-5.40); WHITE BLOOD COUNT 4.9 10^3/uL (4.0-10.0)
[2024-07-22 07:13] LABS: BLOOD UREA NITROGEN 12 MG/DL (9-23); CALCIUM LEVEL 8.2 MG/DL (8.5-10.1); CARBON DIOXIDE LEVEL 24 MMOL/L (20-31); CHLORIDE LEVEL 112 MMOL/L (98-107); CREATININE FOR GFR 0.75 MG/DL (0.55-1.30); GLOMERULAR FILTRATION RATE > 60.0 (>58); GLUCOSE, FASTING 85 MG/DL (60-100); POTASSIUM SERUM 4.4 MMOL/L (3.5-5.1); SODIUM LEVEL 137 MMOL/L (136-145)
[2024-07-22 12:00] VITALS: BP 95/62; TEMP 97.7; O2SAT 97
[2024-07-22] MEDS: FLUZONE VACCINE TRIVALENT PF(2024-25) 0.5ML SYRINGE IM.IMMUN ONE (13:33)
[2024-07-22] MEDS: WARFARIN SOD 3MG TAB PO SCH (18:09)
[2024-07-22] MEDS: ACETAMINOPHEN TAB 650MG DOSE (2X325MG) PO PRN (18:13)
[2024-07-22] MEDS: CEPHALEXIN 500 MG CAP PO SCH (20:29)
[2024-07-22 20:30] VITALS: BP 97/62; TEMP 97.9; O2SAT 96
[2024-07-22] MEDS: NS 1,000 ML IV ONE (22:09)
[2024-07-22 23:08] VITALS: BP 98/62
[2024-07-23] MEDS: ONDANSETRON 4MG ORAL DISINTEGRATING TAB PO PRN (03:34)
[2024-07-23 03:38] VITALS: BP 99/62; TEMP 97.5; O2SAT 97
[2024-07-23 06:13] LABS: BASO % 0.7 % (0.0-1.0); EOS # 0.2 10^3/uL (0.0-0.5); EOS % 4.4 % (0.0-3.0); HEMATOCRIT 31.3 % (36.0-47.0); HEMOGLOBIN 10.1 g/dl (12.0-15.5); LYMPH # 1.3 10^3/uL (1.5-5.0); LYMPH % 29.7 % (24.0-44.0); MEAN CORPUSCULAR HEMOGLOBIN 30.5 pg (27.0-33.0); MEAN CORPUSCULAR HGB CONC 32.3 g/dl (32.0-36.5); MEAN CORPUSCULAR VOLUME 94.6 fl (80.0-96.0); MONO # 0.2 10^3/uL (0.0-0.8); MONO % 4.6 % (2.0-8.0); NEUTROPHILS # 2.6 10^3/uL (1.5-8.5); NEUTROPHILS % 60.4 % (36.0-66.0); PLATELET COUNT, AUTOMATED 285 10^3/uL (150-450); RED BLOOD COUNT 3.31 10^6/uL (4.00-5.40); WHITE BLOOD COUNT 4.4 10^3/uL (4.0-10.0)
[2024-07-23 06:20] LABS: INR 1.88
[2024-07-23 06:30] LABS: BLOOD UREA NITROGEN 11 MG/DL (9-23); CALCIUM LEVEL 8.2 MG/DL (8.5-10.1); CARBON DIOXIDE LEVEL 26 MMOL/L (20-31); CHLORIDE LEVEL 113 MMOL/L (98-107); CREATININE FOR GFR 0.69 MG/DL (0.55-1.30); GLOMERULAR FILTRATION RATE > 60.0 (>58); GLUCOSE, FASTING 89 MG/DL (60-100); POTASSIUM SERUM 4.4 MMOL/L (3.5-5.1); SODIUM LEVEL 140 MMOL/L (136-145)
[2024-07-23 08:30] VITALS: BP 101/64; TEMP 97.7; O2SAT 97
[2024-07-23 12:00] VITALS: BP 100/67; TEMP 97.7; O2SAT 99
[2024-07-23] MEDS: WARFARIN SOD 3MG TAB PO ONE (16:29)
[2024-07-23] MEDS: AUGMENTIN 875 MG TAB PO SCH (19:44)
[2024-07-23 19:52] VITALS: BP 99/67; TEMP 97.7; O2SAT 99
[2024-07-24 04:00] VITALS: BP 96/58; TEMP 97.5; O2SAT 96
[2024-07-24] MEDS ORDERED: LevoFLOXacin 750 MG TABLET PO SCH (06:00)
[2024-07-24 06:19] LABS: HEMATOCRIT 31.3 % (36.0-47.0); HEMOGLOBIN 10.4 g/dl (12.0-15.5); MEAN CORPUSCULAR HEMOGLOBIN 30.9 pg (27.0-33.0); MEAN CORPUSCULAR HGB CONC 33.2 g/dl (32.0-36.5); MEAN CORPUSCULAR VOLUME 92.9 fl (80.0-96.0); PLATELET COUNT, AUTOMATED 292 10^3/uL (150-450); RED BLOOD COUNT 3.37 10^6/uL (4.00-5.40); WHITE BLOOD COUNT 4.2 10^3/uL (4.0-10.0)
[2024-07-24 06:25] LABS: INR 1.87; PROTHROMBIN TIME 20.9 SECONDS (12.5-14.5)
[2024-07-24 06:33] LABS: BLOOD UREA NITROGEN 15 MG/DL (9-23); CALCIUM LEVEL 8.1 MG/DL (8.5-10.1); CARBON DIOXIDE LEVEL 28 MMOL/L (20-31); CHLORIDE LEVEL 110 MMOL/L (98-107); CREATININE FOR GFR 0.74 MG/DL (0.55-1.30); GLOMERULAR FILTRATION RATE > 60.0 (>58); GLUCOSE, FASTING 90 MG/DL (60-100); POTASSIUM SERUM 4.1 MMOL/L (3.5-5.1); SODIUM LEVEL 138 MMOL/L (136-145)
[2024-07-24 06:50] LABS: BASOPHILS 2 % (0-1); EOSINOPHILS 5 % (0-3); LYMPHOCYTES 45 % (16-44); MONOCYTES 2 % (0-5); NEUTROPHILS 46 % (28-66); PLATELET ESTIMATE NORMAL (NORMAL)
[2024-07-24 06:51] LABS: ANISOCYTOSIS 1+
[2024-07-24] MEDS ORDERED: AMOX875T2 PO (11:56)
[2024-07-24 12:00] VITALS: BP 100/67; TEMP 97.7; O2SAT 100
== END 2024-07-24 13:11 | disposition home health service (06) | DRG 813 ==
LOC: M ED 11:38 → M ED INP 19:15 → M MSPAV 07-21 16:31
PROVIDERS: ADMIT Preventive Medicine Undersea and Hyperbaric Medicine; ATTEND Hospitalist
DX: T81.31XA Disruption of external operation (surgical) wound, not elsewhere classified, initial encounter (principal); L03.311 Cellulitis of abdominal wall; F32.9 Major depressive disorder, single episode, unspecified; L98.499 Non-pressure chronic ulcer of skin of other sites with unspecified severity; L08.89 Other specified local infections of the skin and subcutaneous tissue; L93.0 Discoid lupus erythematosus; F43.10 Post-traumatic stress disorder, unspecified; J45.20 Mild intermittent asthma, uncomplicated; K21.9 Gastro-esophageal reflux disease without esophagitis; Z79.01 Long term (current) use of anticoagulants; Z86.718 Personal history of other venous thrombosis and embolism; Z86.711 Personal history of pulmonary embolism; Z93.3 Colostomy status; Z88.5 Allergy status to narcotic agent; Z88.8 Allergy status to other drugs, medicaments and biological substances; Z91.030 Bee allergy status; Z79.899 Other long term (current) drug therapy; M79.7 Fibromyalgia; M54.2 Cervicalgia; M54.59 Other low back pain; I87.8 Other specified disorders of veins; Z86.16 Personal history of COVID-19; F17.200 Nicotine dependence, unspecified, uncomplicated

== ENCOUNTER → 2024-07-25 | Outpatient (CLI) | payer OTHER ==
[~2024-07-25] MED LIST changes: +AMOX875T2 PO; +BUPR1TAB52 PO; +DOCU100T8 PO; +POTA1TAB23 PO; +SENN-188 PO
[2024-07-25 12:47] LABS: BASO % 0.6 % (0.0-1.0); EOS # 0.2 10^3/uL (0.0-0.5); EOS % 3.5 % (0.0-3.0); HEMATOCRIT 36.6 % (36.0-47.0); LYMPH # 1.8 10^3/uL (1.5-5.0); LYMPH % 25.8 % (24.0-44.0); MEAN CORPUSCULAR HEMOGLOBIN 31.2 pg (27.0-33.0); MEAN CORPUSCULAR HGB CONC 32.8 g/dl (32.0-36.5); MEAN CORPUSCULAR VOLUME 95.1 fl (80.0-96.0); MONO # 0.2 10^3/uL (0.0-0.8); MONO % 3.5 % (2.0-8.0); NEUTROPHILS # 4.5 10^3/uL (1.5-8.5); NEUTROPHILS % 66.3 % (36.0-66.0); PLATELET COUNT, AUTOMATED 337 10^3/uL (150-450); RED BLOOD COUNT 3.85 10^6/uL (4.00-5.40); WHITE BLOOD COUNT 6.8 10^3/uL (4.0-10.0)
[2024-07-25 13:00] LABS: INR 1.64; PROTHROMBIN TIME 18.8 SECONDS (12.5-14.5)
== END ==
LOC: M PLALAB 11:29
PROVIDERS: ATTEND Physician Assistant Medical
DX: Z79.01 Long term (current) use of anticoagulants (principal)

== ENCOUNTER → 2024-07-28 | Outpatient (REF) | payer OTHER ==
[2024-07-28 11:04] LABS: INR 1.84; PROTHROMBIN TIME 20.6 SECONDS (12.5-14.5)
== END ==
LOC: M LAB REF 10:33
PROVIDERS: ATTEND Hospitalist
DX: Z51.81 Encounter for therapeutic drug level monitoring (principal); Z79.01 Long term (current) use of anticoagulants

== ENCOUNTER → 2024-08-04 | Outpatient (REF) | payer OTHER ==
[~2024-08-04] MED LIST changes: -DOXY-323 PO; +DOXY-441 PO; +GABA-1172 PO; -GABA-282 PO
== END ==
LOC: M SFHCPLAZ 17:18
PROVIDERS: ATTEND Internal Medicine Infectious Disease
DX: L02.211 Cutaneous abscess of abdominal wall (principal)

== ENCOUNTER 2024-08-18 16:30 | Emergency (ER) | payer OTHER ==
[~2024-08-18] VITALS: Ht 165.1 cm; Wt 72.6 kg
[2024-08-18] MEDS: fentaNYL 100 MCG/2 ML INJECTION IV ONE (20:48)
[2024-08-18 20:56] LABS: HEMATOCRIT 35.6 % (36.0-47.0); HEMOGLOBIN 11.6 g/dl (12.0-15.5); MEAN CORPUSCULAR HEMOGLOBIN 30.8 pg (27.0-33.0); MEAN CORPUSCULAR HGB CONC 32.6 g/dl (32.0-36.5); MEAN CORPUSCULAR VOLUME 94.4 fl (80.0-96.0); PLATELET COUNT, AUTOMATED 309 10^3/uL (150-450); RED BLOOD COUNT 3.77 10^6/uL (4.00-5.40); WHITE BLOOD COUNT 5.5 10^3/uL (4.0-10.0)
[2024-08-18 21:17] LABS: INR 2.57; PARTIAL THROMBOPLASTIN TIME 44.9 SECONDS (24.8-34.2); PROTHROMBIN TIME 26.6 SECONDS (12.5-14.5)
[2024-08-18 21:26] LABS: ANISOCYTOSIS 1+; ATYPICAL LYMPH 4 % (0-5); BASOPHILS 1 % (0-1); EOSINOPHILS 5 % (0-3); LYMPHOCYTES 45 % (16-44); MONOCYTES 3 % (0-5); NEUTROPHILS 42 % (28-66); OVALOCYTES 1+; PLATELET ESTIMATE NORMAL (NORMAL); POIKILOCYTOSIS 1+
[2024-08-18] MEDS: HYDROMORPHONE HCL 0.5 MG/ 0.5 ML SYRINGE IV PRN (23:04)
[2024-08-18] MEDS: ONDANSETRON 4MG 2ML VIAL IV ONE (23:18)
[2024-08-18 23:50] LABS: LIPASE 25 U/L (12-53)
[2024-08-18 23:52] LABS: ALBUMIN 3.2 G/DL (3.2-5.2); ALKALINE PHOSPHATASE 88 U/L (46-116); ALT/SGPT 10 U/L (7.0-40); AST/SGOT < 8 U/L (<34); BILIRUBIN,DIRECT < 0.1 MG/DL (<0.4); BILIRUBIN,TOTAL < 0.2 MG/DL (0.3-1.2); BLOOD UREA NITROGEN 13 MG/DL (9-23); CALCIUM LEVEL 8.6 MG/DL (8.5-10.1); CARBON DIOXIDE LEVEL 27 MMOL/L (20-31); CHLORIDE LEVEL 108 MMOL/L (98-107); CREATININE FOR GFR 0.66 MG/DL (0.55-1.30); GLOMERULAR FILTRATION RATE > 60.0 (>58); GLUCOSE, FASTING 84 MG/DL (60-100); POTASSIUM SERUM 4.2 MMOL/L (3.5-5.1); SODIUM LEVEL 138 MMOL/L (136-145); TOTAL PROTEIN 6.2 G/DL (5.7-8.2)
[2024-08-19] MEDS ORDERED: ISOVUE-370 76% 100ML VIAL As Ordered ONE (00:09)
[2024-08-19 01:17] VITALS: TEMP 97.7
[2024-08-19 03:00] VITALS: BP 94/50; O2SAT 98
[2024-08-19] MEDS: METHYLNALTREXONE BROMIDE 12MG/0.6ML VIAL (RELISTOR) SC ONE (03:25)
[2024-08-19 09:17] LABS: PROCALCITONIN 0.05 ng/ml
== END 2024-08-19 03:32 | disposition home or self-care (01) ==
LOC: M ED 16:30
DX: K59.00 Constipation, unspecified (principal); K29.70 Gastritis, unspecified, without bleeding; J98.11 Atelectasis; N83.02 Follicular cyst of left ovary; N83.01 Follicular cyst of right ovary; N70.11 Chronic salpingitis; K21.9 Gastro-esophageal reflux disease without esophagitis; M79.7 Fibromyalgia; F17.200 Nicotine dependence, unspecified, uncomplicated; F10.10 Alcohol abuse, uncomplicated; Z90.49 Acquired absence of other specified parts of digestive tract; Z86.718 Personal history of other venous thrombosis and embolism; Z88.5 Allergy status to narcotic agent; Z88.8 Allergy status to other drugs, medicaments and biological substances; Z91.030 Bee allergy status; Z79.52 Long term (current) use of systemic steroids; Z79.2 Long term (current) use of antibiotics; Z79.83 Long term (current) use of bisphosphonates; Z79.899 Other long term (current) drug therapy
CPT/HCPCS: 36415; 74177; 80048; 80076; 83605; 83690; 84145; 85025; 85610; 85730; 87040; 93041; 96374; 96375; 96376; 99284; J1171; J2212; J2405; J3010; Q9967

== ENCOUNTER → 2024-09-04 | Outpatient (CLI) | payer OTHER ==
[2024-09-04 15:19] LABS: INR 1.9
== END ==
LOC: M PLALAB 12:16
PROVIDERS: ATTEND Physician Assistant Medical
DX: D68.61 Antiphospholipid syndrome (principal)

== ENCOUNTER 2024-09-08 15:52 | Emergency (ER) | payer OTHER ==
[~2024-09-08] VITALS: Ht 165.1 cm; Wt 73.1 kg
[2024-09-08] MEDS: ONDANSETRON 4MG 2ML VIAL IV ONE (18:32)
[2024-09-08] MEDS: HYDROMORPHONE HCL 0.5 MG/ 0.5 ML SYRINGE IV ONE (18:32)
[2024-09-08] MEDS ORDERED: ISOVUE-370 76% 100ML VIAL As Ordered ONE (18:33)
[2024-09-08 18:37] LABS: BASO # 0.1 10^3/uL (0.0-0.2); BASO % 0.8 % (0.0-1.0); EOS # 0.2 10^3/uL (0.0-0.5); EOS % 2.8 % (0.0-3.0); HEMATOCRIT 33.3 % (36.0-47.0); HEMOGLOBIN 11.1 g/dl (12.0-15.5); LYMPH # 2.4 10^3/uL (1.5-5.0); LYMPH % 39.9 % (24.0-44.0); MEAN CORPUSCULAR HEMOGLOBIN 31.6 pg (27.0-33.0); MEAN CORPUSCULAR HGB CONC 33.3 g/dl (32.0-36.5); MEAN CORPUSCULAR VOLUME 94.9 fl (80.0-96.0); MONO # 0.2 10^3/uL (0.0-0.8); MONO % 3.9 % (2.0-8.0); NEUTROPHILS # 3.2 10^3/uL (1.5-8.5); NEUTROPHILS % 52.3 % (36.0-66.0); PLATELET COUNT, AUTOMATED 335 10^3/uL (150-450); RED BLOOD COUNT 3.51 10^6/uL (4.00-5.40); WHITE BLOOD COUNT 6.1 10^3/uL (4.0-10.0)
[2024-09-08] MEDS: GASTROGRAFIN SOLUTION 30ML PO SCH (18:39)
[2024-09-08 18:57] LABS: LIPASE 85 U/L (12-53)
[2024-09-08 19:00] LABS: ALBUMIN 3.4 G/DL (3.2-5.2); ALKALINE PHOSPHATASE 77 U/L (35-104); ALT/SGPT < 9 U/L (7.0-40); AST/SGOT 11 U/L (<34); BILIRUBIN,DIRECT < 0.1 MG/DL (<0.4); BILIRUBIN,TOTAL < 0.2 MG/DL (0.3-1.2); TOTAL PROTEIN 6.2 G/DL (5.7-8.2)
[2024-09-08] MEDS: ACETAMINOPHEN *IV* 1,000 MG in IV 1 EA IV ONE (20:32)
[2024-09-08 22:39] VITALS: BP 111/67; TEMP 98; O2SAT 99
== END 2024-09-08 22:43 | disposition home or self-care (01) ==
LOC: M ED 15:52
DX: R10.9 Unspecified abdominal pain (principal); N83.291 Other ovarian cyst, right side; H81.4 Vertigo of central origin; K58.9 Irritable bowel syndrome, unspecified; M79.7 Fibromyalgia; Z90.49 Acquired absence of other specified parts of digestive tract; F17.200 Nicotine dependence, unspecified, uncomplicated; Z88.5 Allergy status to narcotic agent; Z88.8 Allergy status to other drugs, medicaments and biological substances; Z91.030 Bee allergy status; Z79.52 Long term (current) use of systemic steroids; Z79.2 Long term (current) use of antibiotics; Z79.83 Long term (current) use of bisphosphonates; Z79.899 Other long term (current) drug therapy; Z79.01 Long term (current) use of anticoagulants; Z86.718 Personal history of other venous thrombosis and embolism
CPT/HCPCS: 74177; 76830; 76856; 80047; 80076; 81001; 83690; 85025; 93976; 96365; 96375; 99284; J0131; J1171; J2405; Q9963; Q9967

== ENCOUNTER → 2024-10-08 | Outpatient (CLI) | payer OTHER | LOC: M PLALAB 16:23 → M PLAIMG 16:23 | PROVIDERS: ATTEND Physician Assistant Medical | DX: G62.9 Polyneuropathy, unspecified (principal) ==

== ENCOUNTER → 2024-10-08 | Outpatient (CLI) | payer OTHER | LOC: M WHC 07:45 | PROVIDERS: ATTEND Physician Assistant Medical | DX: N83.202 Unspecified ovarian cyst, left side (principal) ==

== ENCOUNTER → 2024-10-14 | Outpatient (CLI) | payer OTHER | LOC: M WHC 09:37 | PROVIDERS: ATTEND Physician Assistant Medical | DX: D68.62 Lupus anticoagulant syndrome (principal) ==

== ENCOUNTER → 2024-10-14 | Outpatient (CLI) | payer OTHER ==
[2024-10-14 14:09] LABS: HCG, SERUM QUANTITATIVE < 2.6 MIU/ML (<4.2)
[2024-10-14 14:18] LABS: BASO % 0.6 % (0.0-1.0); EOS # 0.2 10^3/uL (0.0-0.5); EOS % 2.6 % (0.0-3.0); HEMATOCRIT 35.2 % (36.0-47.0); HEMOGLOBIN 11.2 g/dl (12.0-15.5); LYMPH # 2.2 10^3/uL (1.5-5.0); LYMPH % 32.9 % (24.0-44.0); MEAN CORPUSCULAR HEMOGLOBIN 30.5 pg (27.0-33.0); MEAN CORPUSCULAR HGB CONC 31.8 g/dl (32.0-36.5); MEAN CORPUSCULAR VOLUME 95.9 fl (80.0-96.0); MONO # 0.3 10^3/uL (0.0-0.8); MONO % 4.9 % (2.0-8.0); NEUTROPHILS # 3.9 10^3/uL (1.5-8.5); NEUTROPHILS % 58.8 % (36.0-66.0); PLATELET COUNT, AUTOMATED 329 10^3/uL (150-450); RED BLOOD COUNT 3.67 10^6/uL (4.00-5.40); WHITE BLOOD COUNT 6.5 10^3/uL (4.0-10.0)
== END ==
LOC: M PLALAB 09:41
PROVIDERS: ATTEND Physician Assistant Medical
DX: R10.2 Pelvic and perineal pain (principal); D68.62 Lupus anticoagulant syndrome

== ENCOUNTER → 2024-10-17 | Outpatient (CLI) | payer OTHER | LOC: M RAD 11:09 | PROVIDERS: ATTEND Surgery | DX: K59.04 Chronic idiopathic constipation (principal); Z93.3 Colostomy status ==

== ENCOUNTER → 2024-11-03 | Outpatient (CLI) | payer OTHER ==
[2024-11-03 13:41] LABS: BASO % 0.6 % (0.0-1.0); EOS # 0.1 10^3/uL (0.0-0.5); EOS % 1.9 % (0.0-3.0); HEMATOCRIT 35.7 % (36.0-47.0); HEMOGLOBIN 11.6 g/dl (12.0-15.5); LYMPH # 1.8 10^3/uL (1.5-5.0); LYMPH % 26.7 % (24.0-44.0); MEAN CORPUSCULAR HEMOGLOBIN 30.9 pg (27.0-33.0); MEAN CORPUSCULAR HGB CONC 32.5 g/dl (32.0-36.5); MEAN CORPUSCULAR VOLUME 95.2 fl (80.0-96.0); MONO # 0.3 10^3/uL (0.0-0.8); MONO % 4.1 % (2.0-8.0); NEUTROPHILS # 4.6 10^3/uL (1.5-8.5); NEUTROPHILS % 66.6 % (36.0-66.0); PLATELET COUNT, AUTOMATED 368 10^3/uL (150-450); RED BLOOD COUNT 3.75 10^6/uL (4.00-5.40); WHITE BLOOD COUNT 6.9 10^3/uL (4.0-10.0)
[2024-11-03 13:53] LABS: INR 2.6; PROTHROMBIN TIME 27.8 SECONDS (12.5-14.5)
[2024-11-03 14:09] LABS: FERRITIN 36.3 NG/ML (7.3-270.7)
== END ==
LOC: M PLALAB 10:18
PROVIDERS: ATTEND Physician Assistant Medical
DX: N70.93 Salpingitis and oophoritis, unspecified (principal)

== ENCOUNTER → 2024-11-04 | Outpatient (REF) | payer OTHER | LOC: M SFHCPLAZ 17:19 | PROVIDERS: ATTEND Physician Assistant Medical | DX: R19.7 Diarrhea, unspecified (principal) ==

== ENCOUNTER → 2024-11-18 | Outpatient (REF) | payer OTHER | LOC: M SHH 13:10 | PROVIDERS: ATTEND Physician Assistant Medical | DX: Z11.52 Encounter for screening for COVID-19 (principal) ==

== ENCOUNTER → 2024-11-25 | Outpatient (CLI) | payer OTHER ==
[2024-11-25 15:01] LABS: BASO % 0.1 % (0.0-1.0); EOS % 0.1 % (0.0-3.0); HEMATOCRIT 35.1 % (36.0-47.0); HEMOGLOBIN 11.3 g/dl (12.0-15.5); LYMPH # 0.9 10^3/uL (1.5-5.0); LYMPH % 6.3 % (24.0-44.0); MEAN CORPUSCULAR HEMOGLOBIN 30.6 pg (27.0-33.0); MEAN CORPUSCULAR HGB CONC 32.2 g/dl (32.0-36.5); MEAN CORPUSCULAR VOLUME 95.1 fl (80.0-96.0); MONO # 0.4 10^3/uL (0.0-0.8); MONO % 2.6 % (2.0-8.0); NEUTROPHILS # 12.8 10^3/uL (1.5-8.5); NEUTROPHILS % 90.5 % (36.0-66.0); PLATELET COUNT, AUTOMATED 370 10^3/uL (150-450); RED BLOOD COUNT 3.69 10^6/uL (4.00-5.40); WHITE BLOOD COUNT 14.1 10^3/uL (4.0-10.0)
[2024-11-25 15:17] LABS: INR 3.8; PROTHROMBIN TIME 37.1 SECONDS (12.5-14.5)
== END ==
LOC: M PLALAB 12:53
PROVIDERS: ATTEND Physician Assistant Medical
DX: D68.62 Lupus anticoagulant syndrome (principal); E61.1 Iron deficiency

== ENCOUNTER → 2024-12-08 | Outpatient (CLI) | payer OTHER ==
[2024-12-08 14:06] LABS: BASO % 0.6 % (0.0-1.0); EOS # 0.2 10^3/uL (0.0-0.5); EOS % 2.5 % (0.0-3.0); HEMATOCRIT 35.8 % (36.0-47.0); HEMOGLOBIN 11.6 g/dl (12.0-15.5); LYMPH # 2.5 10^3/uL (1.5-5.0); LYMPH % 39.8 % (24.0-44.0); MEAN CORPUSCULAR HEMOGLOBIN 31.4 pg (27.0-33.0); MEAN CORPUSCULAR HGB CONC 32.4 g/dl (32.0-36.5); MONO # 0.4 10^3/uL (0.0-0.8); MONO % 5.5 % (2.0-8.0); NEUTROPHILS # 3.3 10^3/uL (1.5-8.5); NEUTROPHILS % 51.4 % (36.0-66.0); PLATELET COUNT, AUTOMATED 307 10^3/uL (150-450); RED BLOOD COUNT 3.69 10^6/uL (4.00-5.40); WHITE BLOOD COUNT 6.4 10^3/uL (4.0-10.0)
[2024-12-08 14:19] LABS: INR 1.89; PROTHROMBIN TIME 21.9 SECONDS (12.5-14.5)
== END ==
LOC: M LAB 12:23
PROVIDERS: ATTEND Physician Assistant Medical
DX: D68.62 Lupus anticoagulant syndrome (principal)

== ENCOUNTER → 2024-12-11 | Outpatient (CLI) | payer OTHER ==
[~2024-12-11] VITALS: Ht 165.1 cm; Wt 70.5 kg
[~2024-12-11] MED LIST changes: +ALBUTEROL SULFATE 2.5MG/0.5ML INH NEB SOLN INH PRN; +EPINEPHrine INJ 1 MG/ML 1ML AMP IM PRN; +diphenhydrAMINE 50MG/ML VIAL IV PRN; +methylPREDNISolone 125MG 2ML VIAL IV PRN
[2024-12-11] MEDS: IRON SUCROSE 300 MG in NS 250 ML OVER 90 MIN. IV ONE (15:14)
[2024-12-11 15:21] VITALS: BP 110/58; O2SAT 99
[2024-12-11] MEDS: diphenhydrAMINE 25MG CAP PO ONE (15:55)
[2024-12-11] MEDS: ACETAMINOPHEN 650 MG PO ONE (15:55)
[2024-12-11 16:56] VITALS: BP 110/59; O2SAT 96
== END ==
LOC: M INFU 15:04
PROVIDERS: ATTEND Physician Assistant Medical
DX: D50.9 Iron deficiency anemia, unspecified (principal); Z88.5 Allergy status to narcotic agent; Z88.8 Allergy status to other drugs, medicaments and biological substances; Z91.030 Bee allergy status
CPT/HCPCS: 96365; 96366; J1756

== ENCOUNTER → 2024-12-16 | Outpatient (CLI) | payer OTHER ==
[~2024-12-16] MED LIST changes: -ALBUTEROL SULFATE 2.5MG/0.5ML INH NEB SOLN INH PRN; -EPINEPHrine INJ 1 MG/ML 1ML AMP IM PRN; -diphenhydrAMINE 50MG/ML VIAL IV PRN; -methylPREDNISolone 125MG 2ML VIAL IV PRN
[2024-12-16 15:02] LABS: HEMATOCRIT 40.6 % (36.0-47.0); MEAN CORPUSCULAR HEMOGLOBIN 30.7 pg (27.0-33.0); PLATELET COUNT, AUTOMATED 350 10^3/uL (150-450); RED BLOOD COUNT 4.23 10^6/uL (4.00-5.40); WHITE BLOOD COUNT 6.2 10^3/uL (4.0-10.0)
[2024-12-16 15:10] LABS: ERYTHROCYTE SEDIMENTATION RATE 21 mm/hr (0-20)
[2024-12-16 15:33] LABS: ALBUMIN 3.8 G/DL (3.2-5.2); ALKALINE PHOSPHATASE 87 U/L (35-104); ALT/SGPT 20 U/L (7.0-40); AST/SGOT 16 U/L (<34); BILIRUBIN,TOTAL 0.3 MG/DL (0.3-1.2); BLOOD UREA NITROGEN 18 MG/DL (9-23); C REACTIVE PROTEIN QUANTITATIV 1.31 MG/DL (<1.0); CALCIUM LEVEL 8.8 MG/DL (8.5-10.1); CARBON DIOXIDE LEVEL 26 MMOL/L (20-31); CHLORIDE LEVEL 107 MMOL/L (98-107); CREATININE FOR GFR 0.71 MG/DL (0.55-1.30); GLOMERULAR FILTRATION RATE > 60.0 (>58); GLUCOSE, FASTING 75 MG/DL (60-100); POTASSIUM SERUM 4.5 MMOL/L (3.5-5.1); SODIUM LEVEL 140 MMOL/L (136-145); TOTAL PROTEIN 6.9 G/DL (5.7-8.2)
== END ==
LOC: M PLAIMG 12:18
PROVIDERS: ATTEND Physician Assistant Medical
DX: R05.1 Acute cough (principal); R07.1 Chest pain on breathing; K51.818 Other ulcerative colitis with other complication

== ENCOUNTER 2024-12-22 15:45 | Outpatient (CLI) | payer OTHER ==
[~2024-12-22] VITALS: Ht 165.1 cm; Wt 70.5 kg
[~2024-12-22 15:45] MED LIST changes: +ACETAMINOPHEN 650MG PO PRIOR TO INFUSION PO ONE; +ALBUTEROL SULFATE 2.5MG/0.5ML INH NEB SOLN INH PRN; +EPINEPHrine INJ 1 MG/ML 1ML AMP IM PRN; +IRON SUCROSE 300 MG in NS 250 ML IV ONE; +diphenhydrAMINE 25MG PO PRIOR TO INFUSION PO ONE; +diphenhydrAMINE 50MG/ML VIAL IV PRN; +methylPREDNISolone 125MG 2ML VIAL IV PRN
[2024-12-22] MEDS: IRON SUCROSE 300 MG in NS 250 ML OVER 90 MIN. IV ONE (15:54)
[2024-12-22 15:55] VITALS: BP 101/57; O2SAT 100
[2024-12-22] MEDS: diphenhydrAMINE 25MG CAP PO ONE (16:41)
[2024-12-22] MEDS: ACETAMINOPHEN 650 MG PO ONE (16:42)
[2024-12-22 17:29] VITALS: BP 111/63; O2SAT 99
== END 2024-12-22 17:30 ==
LOC: M INFU 15:45
PROVIDERS: ATTEND Physician Assistant Medical
DX: D50.9 Iron deficiency anemia, unspecified (principal); Z88.8 Allergy status to other drugs, medicaments and biological substances; Z88.5 Allergy status to narcotic agent; Z91.030 Bee allergy status
CPT/HCPCS: 96365; 96366; J1756

== ENCOUNTER → 2025-01-14 | Outpatient (CLI) | payer OTHER ==
[~2025-01-14] MED LIST changes: -ACETAMINOPHEN 650MG PO PRIOR TO INFUSION PO ONE; -ALBUTEROL SULFATE 2.5MG/0.5ML INH NEB SOLN INH PRN; -EPINEPHrine INJ 1 MG/ML 1ML AMP IM PRN; -IRON SUCROSE 300 MG in NS 250 ML IV ONE; -diphenhydrAMINE 25MG PO PRIOR TO INFUSION PO ONE; -diphenhydrAMINE 50MG/ML VIAL IV PRN; -methylPREDNISolone 125MG 2ML VIAL IV PRN
== END ==
LOC: M WHC 15:55
PROVIDERS: ATTEND Physician Assistant Medical
DX: Z12.31 Encounter for screening mammogram for malignant neoplasm of breast (principal)

== ENCOUNTER → 2025-01-31 | Outpatient (CLI) | payer OTHER ==
[2025-01-31 12:53] LABS: HEMOGLOBIN 10.3 g/dl (12.0-15.5); MEAN CORPUSCULAR HEMOGLOBIN 31.8 pg (27.0-33.0); MEAN CORPUSCULAR HGB CONC 33.2 g/dl (32.0-36.5); MEAN CORPUSCULAR VOLUME 95.7 fl (80.0-96.0); PLATELET COUNT, AUTOMATED 511 10^3/uL (150-450); RED BLOOD COUNT 3.24 10^6/uL (4.00-5.40); WHITE BLOOD COUNT 6.3 10^3/uL (4.0-10.0)
[2025-01-31 13:09] LABS: INR 1.63; PROTHROMBIN TIME 19.5 SECONDS (12.5-14.5)
[2025-01-31 13:24] LABS: ALBUMIN 3.3 G/DL (3.2-5.2); ALKALINE PHOSPHATASE 107 U/L (35-104); ALT/SGPT 10 U/L (7.0-40); AST/SGOT 9 U/L (<34); BILIRUBIN,TOTAL 0.2 MG/DL (0.3-1.2); BLOOD UREA NITROGEN 9 MG/DL (9-23); CALCIUM LEVEL 8.3 MG/DL (8.5-10.1); CARBON DIOXIDE LEVEL 24 MMOL/L (20-31); CHLORIDE LEVEL 106 MMOL/L (98-107); CREATININE FOR GFR 0.52 MG/DL (0.55-1.30); FERRITIN 197.2 NG/ML (7.3-270.7); GLOMERULAR FILTRATION RATE > 60.0 (>58); GLUCOSE, FASTING 113 MG/DL (60-100); IRON (FE) 31 UG/DL (50-170); POTASSIUM SERUM 3.6 MMOL/L (3.5-5.1); SODIUM LEVEL 140 MMOL/L (136-145); TOTAL PROTEIN 6.4 G/DL (5.7-8.2)
[2025-01-31 13:52] LABS: ATYPICAL LYMPH 3 % (0-5); EOSINOPHILS 1 % (0-3); LYMPHOCYTES 33 % (16-44); MONOCYTES 5 % (0-5); NEUTROPHILS 58 % (28-66)
[2025-01-31 13:53] LABS: PLATELET ESTIMATE INCREASED (NORMAL)
[2025-01-31 13:55] LABS: ANISOCYTOSIS 1+; OVALOCYTES 1+; TEAR DROP CELLS 1+
== END ==
LOC: M LAB 12:25
PROVIDERS: ATTEND Physician Assistant Medical
DX: D68.62 Lupus anticoagulant syndrome (principal); K51.818 Other ulcerative colitis with other complication; Z43.3 Encounter for attention to colostomy; K27.9 Peptic ulcer, site unspecified, unspecified as acute or chronic, without hemorrhage or perforation; E61.1 Iron deficiency

== ENCOUNTER → 2025-02-05 | Outpatient (CLI) | payer OTHER ==
[2025-02-05 13:46] LABS: HEMATOCRIT 37.6 % (36.0-47.0); INR 1.48; MEAN CORPUSCULAR HEMOGLOBIN 31.3 pg (27.0-33.0); MEAN CORPUSCULAR HGB CONC 31.9 g/dl (32.0-36.5); MEAN CORPUSCULAR VOLUME 98.2 fl (80.0-96.0); PLATELET COUNT, AUTOMATED 756 10^3/uL (150-450); PROTHROMBIN TIME 18.2 SECONDS (12.5-14.5); RED BLOOD COUNT 3.83 10^6/uL (4.00-5.40); WHITE BLOOD COUNT 7.9 10^3/uL (4.0-10.0)
[2025-02-05 13:48] LABS: BLOOD UREA NITROGEN 14 MG/DL (9-23); CALCIUM LEVEL 9.3 MG/DL (8.5-10.1); CARBON DIOXIDE LEVEL 26 MMOL/L (20-31); CHLORIDE LEVEL 105 MMOL/L (98-107); CREATININE FOR GFR 0.62 MG/DL (0.55-1.30); GLOMERULAR FILTRATION RATE > 90.0 (>58); GLUCOSE, FASTING 77 MG/DL (60-100); POTASSIUM SERUM 4.9 MMOL/L (3.5-5.1); SODIUM LEVEL 140 MMOL/L (136-145)
[2025-02-05 14:04] LABS: APPEARANCE, URINE HAZY (CLEAR); BACTERIA, URINE AUTO NEGATIVE (NEGATIVE); BILIRUBIN, URINE AUTO NEGATIVE (NEGATIVE); BLOOD, URINE BLOOD 2+ (NEGATIVE); CALCIUM OXALATE CRYSTALS SMALL; COLOR, URINE AMBER (YELLOW); GLUCOSE, URINE (UA) AUTO NEGATIVE (NEGATIVE); KETONE, URINE AUTO NEGATIVE (NEGATIVE); LEUKOCYTE ESTERASE, URINE AUTO NEGATIVE (NEGATIVE); MUCUS, URINE SMALL (NEGATIVE); NITRITE, URINE AUTO NEGATIVE (NEGATIVE); PROTEIN, URINE AUTO 1+ mg/dL (NEGATIVE); RBC, URINE AUTO 45 /HPF (0-3); SPECIFIC GRAVITY URINE AUTO 1.029 (1.002-1.035); SQUAMOUS EPITHELIAL CELL UR AU 3 /HPF (0-6); WBC, URINE AUTO 0 /HPF (0-3)
[2025-02-05 14:13] LABS: ATYPICAL LYMPH 10 % (0-5); LYMPHOCYTES 20 % (16-44); MONOCYTES 3 % (0-5); NEUTROPHILS 67 % (28-66)
[2025-02-05 14:14] LABS: GIANT PLATELETS 1+; PLATELET ESTIMATE INCREASED (NORMAL)
== END ==
LOC: M PLALAB 11:21
PROVIDERS: ATTEND Physician Assistant Medical
DX: Z90.49 Acquired absence of other specified parts of digestive tract (principal); Z98.890 Other specified postprocedural states; D68.62 Lupus anticoagulant syndrome; R33.9 Retention of urine, unspecified

== ENCOUNTER → 2025-02-06 | Outpatient (REF) | payer OTHER ==
[~2025-02-06] MED LIST changes: +LORA-1041 PO; +PROP10TA56 PO
== END ==
LOC: M LAB REF 15:37
PROVIDERS: ATTEND Physician Assistant Medical
DX: Z86.19 Personal history of other infectious and parasitic diseases (principal)

== ENCOUNTER → 2025-02-09 | Outpatient (CLI) | payer OTHER ==
[2025-02-09 13:13] LABS: INR 2.17; PROTHROMBIN TIME 24.3 SECONDS (12.5-14.5)
== END ==
LOC: M PLALAB 10:50
PROVIDERS: ATTEND Physician Assistant Medical
DX: D68.62 Lupus anticoagulant syndrome (principal)

== ENCOUNTER → 2025-02-22 | Outpatient (CLI) | payer OTHER ==
[~2025-02-22] MED LIST changes: +BUPR-670 PO; -BUPR1TAB52 PO
[2025-02-22 15:20] LABS: INR 1.23; PROTHROMBIN TIME 15.8 SECONDS (12.5-14.5)
== END ==
LOC: M LAB 14:14
PROVIDERS: ATTEND Physician Assistant Medical
DX: D68.62 Lupus anticoagulant syndrome (principal)

== ENCOUNTER → 2025-03-06 | Outpatient (CLI) | payer OTHER ==
[2025-03-06 15:35] LABS: INR 2.02
== END ==
LOC: M PLALAB 13:05
PROVIDERS: ATTEND Physician Assistant Medical
DX: Z51.81 Encounter for therapeutic drug level monitoring (principal); Z79.01 Long term (current) use of anticoagulants

== ENCOUNTER → 2025-04-29 | Outpatient (CLI) | payer OTHER ==
[~2025-04-29] MED LIST changes: +ISOVUE-370 76% 100 ML VIAL As Ordered ONE
== END ==
LOC: M RAD 12:16
PROVIDERS: ATTEND Physician Assistant Medical
DX: R06.02 Shortness of breath (principal)
CPT/HCPCS: 71275; Q9967

== ENCOUNTER 2025-05-15 21:15 | Emergency (ER) | payer OTHER ==
[~2025-05-15] VITALS: Ht 165.1 cm; Wt 68.2 kg
[~2025-05-15 21:15] MED LIST changes: -ISOVUE-370 76% 100 ML VIAL As Ordered ONE
[2025-05-15 22:56] LABS: BASO # 0.1 10^3/uL (0.0-0.2); BASO % 0.8 % (0.0-1.0); EOS # 0.2 10^3/uL (0.0-0.5); EOS % 3.3 % (0.0-3.0); LYMPH # 2.6 10^3/uL (1.5-5.0); LYMPH % 39.6 % (24.0-44.0); MONO # 0.2 10^3/uL (0.0-0.8); MONO % 3.6 % (2.0-8.0); NEUTROPHILS # 3.5 10^3/uL (1.5-8.5); NEUTROPHILS % 52.5 % (36.0-66.0); PLATELET COUNT, AUTOMATED 319 10^3/uL (150-450)
[2025-05-15 23:15] LABS: CK-MB VALUE MASS 1.0 NG/ML (<3.6); CPK CREATINE PHOSPHOKINASE 87 U/L (34-145); MB/CK RELATIVE INDEX 1.14 (< OR =4)
[2025-05-15 23:17] LABS: ALT/SGPT < 9 U/L (7.0-40); AST/SGOT 12 U/L (<34); CALCIUM LEVEL 8.2 MG/DL (8.5-10.1); CARBON DIOXIDE LEVEL 27 MMOL/L (20-31); CHLORIDE LEVEL 108 MMOL/L (98-107); CREATININE FOR GFR 0.89 MG/DL (0.55-1.30); GLOMERULAR FILTRATION RATE 83.0 (>58); POTASSIUM SERUM 3.8 MMOL/L (3.5-5.1); SODIUM LEVEL 145 MMOL/L (136-145)
[2025-05-16] MEDS: HYDROMORPHONE HCL 0.5 MG/0.5 ML SYRINGE IV STA (00:06)
[2025-05-16 02:34] VITALS: BP 101/67; TEMP 96.7; O2SAT 98
== END 2025-05-16 02:40 | disposition home or self-care (01) ==
LOC: M ED 21:15
DX: M94.0 Chondrocostal junction syndrome [Tietze] (principal); I49.9 Cardiac arrhythmia, unspecified; Z88.5 Allergy status to narcotic agent; Z88.8 Allergy status to other drugs, medicaments and biological substances; Z91.030 Bee allergy status; Z79.51 Long term (current) use of inhaled steroids; Z79.899 Other long term (current) drug therapy; Z79.01 Long term (current) use of anticoagulants
CPT/HCPCS: 71046; 80048; 80076; 82550; 82553; 84484; 85025; 93005; 93041; 94760; 96374; 99285; J1171

== ENCOUNTER → 2025-05-28 | Outpatient (CLI) | payer OTHER ==
[2025-05-28 12:58] LABS: INR 2.07; PLATELET COUNT, AUTOMATED 296 10^3/uL (150-450)
[2025-05-28 13:00] LABS: IRON (FE) 69.0 UG/DL (50-170)
[2025-05-28 14:10] LABS: EOSINOPHILS 1 % (0-3); LYMPHOCYTES 52 % (16-44); MONOCYTES 1 % (0-5); NEUTROPHILS 46 % (28-66)
[2025-05-28 14:11] LABS: PLATELET ESTIMATE NORMAL (NORMAL)
== END ==
LOC: M PLALAB 10:38
PROVIDERS: ATTEND Physician Assistant Medical
DX: N99.840 Postprocedural hematoma of a genitourinary system organ or structure following a genitourinary system procedure (principal); Z79.01 Long term (current) use of anticoagulants

== ENCOUNTER → 2025-06-05 | Outpatient (CLI) | payer OTHER | LOC: M WHC 11:19 | PROVIDERS: ATTEND Physician Assistant Medical | DX: N99.840 Postprocedural hematoma of a genitourinary system organ or structure following a genitourinary system procedure (principal) ==

== ENCOUNTER → 2025-07-16 | Outpatient (CLI) | payer OTHER | LOC: M WHC 12:20 | PROVIDERS: ATTEND Physician Assistant Medical | DX: R60.0 Localized edema (principal); Z53.9 Procedure and treatment not carried out, unspecified reason ==

== ENCOUNTER → 2025-07-16 | Outpatient (CLI) | payer OTHER | LOC: M RAD 12:44 | PROVIDERS: ATTEND Physician Assistant Medical | DX: R60.0 Localized edema (principal); M47.816 Spondylosis without myelopathy or radiculopathy, lumbar region; G62.9 Polyneuropathy, unspecified ==

== ENCOUNTER → 2025-08-07 | Outpatient (CLI) | payer OTHER ==
[2025-08-07 13:06] LABS: BASO # 0.1 10^3/uL (0.0-0.2); BASO % 1.0 % (0.0-1.0); EOS # 0.2 10^3/uL (0.0-0.5); EOS % 3.2 % (0.0-3.0); LYMPH # 1.5 10^3/uL (1.5-5.0); LYMPH % 29.8 % (24.0-44.0); MONO # 0.3 10^3/uL (0.0-0.8); MONO % 6.0 % (2.0-8.0); NEUTROPHILS # 3.0 10^3/uL (1.5-8.5); NEUTROPHILS % 59.8 % (36.0-66.0); PLATELET COUNT, AUTOMATED 317 10^3/uL (150-450)
[2025-08-07 13:14] LABS: INR 1.38
[2025-08-07 13:40] LABS: IRON (FE) 46.0 UG/DL (50-170)
[2025-08-07 13:41] LABS: ALT/SGPT 32.0 U/L (7.0-40); AST/SGOT 25.0 U/L (<34); CALCIUM LEVEL 8.5 MG/DL (8.5-10.1); CARBON DIOXIDE LEVEL 27.0 MMOL/L (20-31); CHLORIDE LEVEL 107.0 MMOL/L (98-107); CREATININE FOR GFR 0.83 MG/DL (0.55-1.30); GLOMERULAR FILTRATION RATE 89.7 (>58); POTASSIUM SERUM 4.2 MMOL/L (3.5-5.1); SODIUM LEVEL 144.0 MMOL/L (136-145)
== END ==
LOC: M PLALAB 09:39
PROVIDERS: ATTEND Physician Assistant Medical
DX: K92.2 Gastrointestinal hemorrhage, unspecified (principal)

== ENCOUNTER → 2025-08-08 | Outpatient (CLI) | payer OTHER | LOC: M RAD 08:23 | PROVIDERS: ATTEND Physician Assistant Medical | DX: M47.816 Spondylosis without myelopathy or radiculopathy, lumbar region (principal); M48.061 Spinal stenosis, lumbar region without neurogenic claudication; M47.814 Spondylosis without myelopathy or radiculopathy, thoracic region; M48.04 Spinal stenosis, thoracic region ==

== ENCOUNTER → 2025-08-21 | Outpatient (CLI) | payer OTHER ==
[2025-08-21 10:30] LABS: BASO # 0.1 10^3/uL (0.0-0.2); BASO % 1.0 % (0.0-1.0); EOS # 0.3 10^3/uL (0.0-0.5); EOS % 4.6 % (0.0-3.0); LYMPH # 1.9 10^3/uL (1.5-5.0); LYMPH % 31.3 % (24.0-44.0); MONO # 0.4 10^3/uL (0.0-0.8); MONO % 7.2 % (2.0-8.0); NEUTROPHILS # 3.4 10^3/uL (1.5-8.5); NEUTROPHILS % 55.7 % (36.0-66.0); PLATELET COUNT, AUTOMATED 389 10^3/uL (150-450)
[2025-08-21 10:33] LABS: INR 0.85
== END ==
LOC: M PLALAB 09:16
PROVIDERS: ATTEND Physician Assistant Medical
DX: K92.2 Gastrointestinal hemorrhage, unspecified (principal)

== ENCOUNTER → 2025-08-26 | Outpatient (REF) | payer OTHER | LOC: M LAB REF 21:09 | PROVIDERS: ATTEND Physician Assistant | DX: J02.9 Acute pharyngitis, unspecified (principal) ==

== ENCOUNTER → 2025-08-28 | Outpatient (REF) | payer OTHER | LOC: M LAB REF 14:45 | PROVIDERS: ATTEND Physician Assistant | DX: B34.9 Viral infection, unspecified (principal) ==

== ENCOUNTER → 2025-09-01 | Outpatient (CLI) | payer OTHER ==
[2025-09-01 13:45] LABS: ALT/SGPT < 9 U/L (7.0-40); AST/SGOT 14 U/L (<34); BASO # 0.1 10^3/uL (0.0-0.2); BASO % 0.7 % (0.0-1.0); CALCIUM LEVEL 8.7 MG/DL (8.5-10.1); CARBON DIOXIDE LEVEL 22 MMOL/L (20-31); CHLORIDE LEVEL 114 MMOL/L (98-107); CREATININE FOR GFR 0.90 MG/DL (0.55-1.30); EOS # 0.1 10^3/uL (0.0-0.5); EOS % 1.1 % (0.0-3.0); GLOMERULAR FILTRATION RATE 81.4 (>58); IRON (FE) 40 UG/DL (50-170); LYMPH # 2.0 10^3/uL (1.5-5.0); LYMPH % 22.5 % (24.0-44.0); MONO # 0.3 10^3/uL (0.0-0.8); MONO % 3.4 % (2.0-8.0); NEUTROPHILS # 6.4 10^3/uL (1.5-8.5); NEUTROPHILS % 72.0 % (36.0-66.0); PLATELET COUNT, AUTOMATED 321 10^3/uL (150-450); POTASSIUM SERUM 4.1 MMOL/L (3.5-5.1); SODIUM LEVEL 143 MMOL/L (136-145)
== END ==
LOC: M PLALAB 10:58
PROVIDERS: ATTEND Physician Assistant Medical
DX: K92.2 Gastrointestinal hemorrhage, unspecified (principal); D68.62 Lupus anticoagulant syndrome